=== PATIENT | female | born 1955 | race Caucasian/White ===

== ENCOUNTER 2020-03-30 08:33 | Outpatient (REF) | payer OTHER, SELFPAY ==
[2020-03-30 11:33] LABS: MANUAL DIFF FLAG NO
[2020-03-30 11:39] LABS: Basophils Percent Auto 0.5 % (0-2); Eosinophils Absolute Auto 0.1 X10*3/uL (0.0-0.4); Eosinophils Percent Auto 2.1 % (0-4); Hematocrit 39.7 % (37-47); Hemoglobin 13.4 g/dl (12.0-16.0); Imm Gran Abs Auto 0.01 X10*3/uL (0.00-0.03); Imm Gran Pct Auto 0.2 % (0.0-0.4); Lymphocytes Absolute Auto 0.8 X10*3/uL (1.2-4.9); Lymphocytes Percent Auto 18.9 % (20-40); Mean Corpuscular HGB Conc 33.8 g/dl (31.0-35.0); Mean Corpuscular Hemoglobin 31.7 pg (27.0-33.0); Mean Corpuscular Volume 93.9 fL (80-98); Mean Platelet Volume 10.4 fL (9.4-12.3); Monocytes Absolute Auto 0.3 X10*3/uL (0.1-1.2); Monocytes Percent Auto 7.8 % (2-11); Neutrophils Absolute Auto 3.1 X10*3/uL (2.0-8.3); Neutrophils Percent Auto 70.5 % (45-73); Platelet Count 246 X10*3/uL (160-400); Red Blood Count 4.23 X10*6/uL (4.20-5.50); Red Cell Distribution Width 12.1 % (11.0-16.0); White Blood Count 4.4 X10*3/uL (4.8-10.8)
[2020-03-30 11:59] LABS: Alanine Aminotransferase 17 U/L (0-31); Albumin Level 4.1 g/dL (3.5-5.0); Alkaline Phosphatase 91 U/L (39-117); Anion Gap 11 (12-20); Aspartate Amino Transferase 20 U/L (5-31); Bilirubin Total 0.4 mg/dL (0.0-1.0); Blood Urea Nitrogen 13 mg/dL (9-16); Calcium 9.1 mg/dL (8.4-10.2); Carbon Dioxide 31 mmol/L (22-29); Chloride 105 mmol/L (96-108); Cholesterol 172 mg/dL; Estimated Glomerular Filt Rate > 60; Glucose Fasting 86 mg/dL (60-99); HDL Cholesterol 61 mg/dL; LDL Cholesterol Calculated 98 mg/dl; Potassium 3.9 mmol/l (3.3-5.1); Sodium 143 mmol/L (135-145); Total Protein 6.4 g/dL (6.5-8.0); Triglycerides 68 mg/dL
[2020-03-30 12:21] LABS: TSH reflex Free T4 1.51 mIU/mL (0.32-4.0)
[2020-03-30 12:47] LABS: Glucose Urine UA NEG (NEG); Leukocyte Esterase Urine 1+ (NEG); Nitrite Urine NEG (NEG); PH 7.5 (5.0-8.0); Urine Blood NEG (NEG); Urine Ketones NEG (NEG); Urine Protein NEG (NEG-TRACE)
[2020-03-30 12:56] LABS: Appearance Urine CLEAR; Color Urine YELLOW
[2020-03-30 13:13] LABS: RBC Urine 0 /HPF (0); Squamous Epithelial Cell Urine TRACE /LPF; WBC Urine 0-2 /HPF (0-4)
[2020-03-30 13:14] LABS: Amorphous Sediment Urine 4+ /LPF
== END 2020-03-30 08:34 | disposition home or self-care (01) ==
LOC: HO.HMGCLDS 08:33
PROVIDERS: PCP Internal Medicine; Visit Provider Internal Medicine
DX: Z00.00 Encounter for general adult medical examination without abnormal findings (principal); G50.0 Trigeminal neuralgia; F32.9 Major depressive disorder, single episode, unspecified
CPT/HCPCS: 36415; 80053; 80061; 81001; 81003; 84443; 85025; 87086

== ENCOUNTER 2020-08-05 08:14 | Outpatient (REF) | payer OTHER, SELFPAY ==
--- NOTE | ~2020-08-05 | MM_ITS ---
EXAMINATION: MM SCREENING DIGITAL BREAST TOMOSYNTHESIS, BILATERAL CLINICAL INFORMATION: Screening. Asymptomatic. The lifetime risk of breast cancer based on the Tyrer-Cuzick Model is 5.5%. COMPARISON: Mammography: April 23, 2019 and March 09, 2018 TECHNIQUE: Digital breast tomosynthesis is performed in both the craniocaudal and mediolateral oblique views along with computer-aided detection (CAD). Synthesized 2D images are generated from the tomosynthesis. FINDINGS: There are scattered areas of fibroglandular density (ACR BI-RADS breast composition Category b). There are no significant masses, abnormal calcifications, or other abnormalities. MM/MM tomosynthesis screening BI IMPRESSION: There are no significant changes from prior study. ASSESSMENT: BI-RADS 1: Negative RECOMMENDATION: Routine annual mammography screening. This patient's information was entered into a reminder system with a target due date for their next mammogram.
== END 2020-08-05 08:15 | disposition home or self-care (01) ==
LOC: HO.MAMMO 08:14
PROVIDERS: Visit Provider Internal Medicine
DX: Z12.31 Encounter for screening mammogram for malignant neoplasm of breast (principal)
CPT/HCPCS: 77063; 77067

== ENCOUNTER 2021-08-11 08:16 | Outpatient (REF) | payer OTHER, SELFPAY ==
--- NOTE | ~2021-08-11 | MM_ITS ---
EXAMINATION: MM SCREENING DIGITAL BREAST TOMOSYNTHESIS, BILATERAL CLINICAL INFORMATION: Screening. Asymptomatic. The lifetime risk of breast cancer based on the Tyrer-Cuzick Model is 5%. COMPARISON: Mammography: 08/05/2020, 04/23/2019, 03/09/2018 (new baseline). TECHNIQUE: Digital breast tomosynthesis is performed in both the craniocaudal and mediolateral oblique views along with computer-aided detection (CAD). Synthesized 2D images are generated from the tomosynthesis. FINDINGS: There are scattered areas of fibroglandular density (ACR BI-RADS breast composition Category b). There are no significant masses, abnormal calcifications, or other abnormalities. Parenchymal pattern is similar to prior studies. The axilla are unremarkable. Skin contours are smooth. MM/MM tomosynthesis screening BI IMPRESSION: No mammographic evidence of malignancy. ASSESSMENT: BI-RADS 1: Negative RECOMMENDATION: Routine annual mammography screening. This patient's information was entered into a reminder system with a target due date for their next mammogram.
== END 2021-08-11 08:17 | disposition home or self-care (01) ==
LOC: HO.MAMMO 08:16
PROVIDERS: PCP Internal Medicine; Visit Provider Internal Medicine
DX: Z12.31 Encounter for screening mammogram for malignant neoplasm of breast (principal)
CPT/HCPCS: 77063; 77067

== ENCOUNTER 2021-08-13 07:11 | Outpatient (REF) | payer OTHER, SELFPAY ==
[2021-08-13 07:29] LABS: MANUAL DIFF FLAG NO
[2021-08-13 07:38] LABS: Basophils Percent Auto 0.8 % (0-2); Eosinophils Absolute Auto 0.1 X10*3/uL (0.0-0.4); Eosinophils Percent Auto 1.8 % (0-4); Hematocrit 39.8 % (37.0-47.0); Lymphocytes Absolute Auto 0.9 X10*3/uL (1.2-4.9); Lymphocytes Percent Auto 24.1 % (20-40); Mean Corpuscular HGB Conc 35.2 g/dl (31.0-35.0); Mean Corpuscular Hemoglobin 32.3 pg (27.0-33.0); Mean Corpuscular Volume 91.7 fL (80.0-98.0); Mean Platelet Volume 9.5 fL (9.4-12.3); Monocytes Absolute Auto 0.3 X10*3/uL (0.1-1.2); Monocytes Percent Auto 8.7 % (2-11); Neutrophils Absolute Auto 2.5 x10*3/uL (2.0-8.3); Neutrophils Percent Auto 64.6 % (45-73); Platelet Count 246 X10*3/uL (160-400); Red Blood Count 4.34 X10*6/uL (4.20-5.50); Red Cell Distribution Width 11.9 % (11.0-16.0); White Blood Count 3.8 X10*3/uL (4.8-10.8)
[2021-08-13 07:53] LABS: Troponin-I High Sensitivity < 3.5 ng/L (<3.5-17.0)
[2021-08-13 08:05] LABS: Alanine Aminotransferase 25 U/L (0-31); Albumin Level 4.1 g/dL (3.5-5.0); Alkaline Phosphatase 112 U/L (39-117); Anion Gap 12 (12-20); Aspartate Amino Transferase 22 U/L (5-31); Bilirubin Total 0.3 mg/dL (0.0-1.0); Blood Urea Nitrogen 12 mg/dL (9-16); Calcium 9.7 mg/dL (8.4-10.2); Carbon Dioxide 28 mmol/L (22-29); Chloride 103 mmol/L (96-108); Cholesterol 212 mg/dL; Estimated Glomerular Filt Rate > 60; Glucose Fasting 88 mg/dL (60-99); HDL Cholesterol 75 mg/dL; LDL Cholesterol Calculated 129 mg/dl; Potassium 4.1 mmol/L (3.3-5.1); Sodium 139 mmol/L (135-145); Total Protein 6.6 g/dL (6.5-8.0); Triglycerides 40 mg/dL
[2021-08-13 08:18] LABS: TSH reflex Free T4 1.27 uIU/mL (0.32-4.0); Vitamin D 25-OH Total 45.4 ng/mL (>30)
[2021-08-13 09:12] LABS: Color Urine YELLOW; Glucose Urine UA NEG (NEG); Leukocyte Esterase Urine 3+ (NEG); Nitrite Urine NEG (NEG); Specific Gravity - Urine >= 1.030 (1.005-1.025); UACC Culture Trigger YES; Urine Blood NEG (NEG); Urine Ketones NEG (NEG); Urine Protein NEG (NEG-TRACE)
[2021-08-13 09:14] LABS: Appearance Urine HAZY
[2021-08-13 09:32] LABS: Bacteria Urine TRACE /LPF; Squamous Epithelial Cell Urine 1+ /LPF
[2021-08-19 14:36] LABS: CK-BB None Detected (None Detected); CK-MB 0 % (<5); CK-MM 100 % (95-100); Creatine Kinase,Total,Serum 87 U/L (29-143)
== END 2021-08-13 07:12 | disposition home or self-care (01) ==
LOC: HO.LAB 07:11
PROVIDERS: PCP Internal Medicine; Visit Provider Internal Medicine
DX: Z00.00 Encounter for general adult medical examination without abnormal findings (principal); R07.9 Chest pain, unspecified; E55.9 Vitamin D deficiency, unspecified
CPT/HCPCS: 36415; 80053; 80061; 81001; 82306; 82552; 84443; 84484; 85025; 86140; 87086

== ENCOUNTER 2021-09-22 10:20 | Outpatient (REF) | payer OTHER, SELFPAY ==
--- NOTE | ~2021-09-22 | MM_ITS ---
EXAMINATION: BONE DENSITOMETRY CLINICAL INDICATION: Asymptomatic menopausal state. COMPARISON: Baseline BD dated 03/09/2018. TECHNIQUE: Using a [employer] DXA System (software version: 13.1) manufactured by [employer], dual-energy x-ray absorptiometry was performed of the lumbar spine and left hip. The images are of good technical quality. Summary results are attached. FINDINGS: AP SPINE L1-L4: Current: BMD 1.214 g/cm2, Z-score 1.6, T-score 0.3, normal, 1.0% decrease from baseline (<5% change is not significant). Baseline: BMD 1.226 g/cm2. LEFT FEMUR, NECK: Current: BMD 0.867 g/cm2, Z-score 0.1, T-score -1.2, osteopenia. Baseline: BMD 0.881 g/cm2. LEFT FEMUR, TOTAL: Current: BMD 0.993 g/cm2, Z-score 0.9, T-score -0.1, normal, 3.6% decrease from baseline (<5% change is not significant). Baseline: BMD 1.030 g/cm2. IDENTIFIED RISK FACTORS: Early menopause, secondary osteoporosis, low calcium intake. HISTORY OF FRACTURE: None listed. MEDICATIONS: Calcium supplements or multivitamin, vitamin D. MM/XR DEXA axial skeleton IMPRESSION: 1. DIAGNOSIS: Osteopenia based on the lowest T-score value of -1.2 in the femoral neck applying World Health Organization criteria. 2. 10-YEAR FRACTURE RISK PREDICTION, FRAX: Major osteoporotic fracture (clinical spine, forearm, hip or shoulder) 8.3%. Hip fracture 0.7%. 3. Treatment Recommendations: NOF guidelines recommend consideration for treatment in postmenopausal women and men age 50 and older presenting with the following: -A hip or vertebral (clinical or morphometric) fracture. -T-score less than or equal to -2.5 at the femoral neck or spine after appropriate evaluation to exclude secondary causes. -Low bone mass at the hip or spine and a 10-year fracture probability by FRAX of greater than or equal to 3% for hip fracture or greater than or equal to 20% for major osteoporotic fracture based on the [place] adapted WHO algorithm. 4. Other Recommendations: All treatment decisions require clinical judgment and consideration of individual patient factors, including patient preferences, comorbidities, previous drug use, risk factors not captured in the FRAX model (e.g. frailty, falls, vitamin D deficiency, increased bone turnover, interval significant decline in bone density) and possible under or overestimation of fracture risk by FRAX. Additional medical evaluation for secondary cause of low bone mineral density may be appropriate. FUTURE SCAN RECOMMENDATION: People with diagnosed cases of osteoporosis or at high risk for fracture should have regular bone mineral density tests. For patients eligible for Medicare, routine testing is allowed once every 2 years. The testing frequency can be increased to one year for patients who have rapidly progressing disease, those who are receiving or discontinuing medical therapy to restore bone mass, or have additional risk factors.
== END 2021-09-22 10:21 | disposition home or self-care (01) ==
LOC: HO.MAMMO 10:20
PROVIDERS: PCP Internal Medicine; Visit Provider Internal Medicine
DX: M85.80 Other specified disorders of bone density and structure, unspecified site (principal); E83.51 Hypocalcemia; Z78.0 Asymptomatic menopausal state
CPT/HCPCS: 77080

== ENCOUNTER → 2021-09-23 11:57 | Outpatient (REF) | payer OTHER, SELFPAY ==
--- NOTE | 2021-09-23 10:36 | CA_ITS ---
Acquisition Time: 2021-09-23 10:39:55 Total Exercise Time: 00:10:00 Test Indications: Chest Pain Medications: carbamazipine prigabalin Protocol: GERI Max HR: 144 BPM 92% of Pred: 156 BPM Max BP: 150/060 mmHG Max Work Load: 11.7 METS Exercise stress test with exercise 10 min of Geri protocol, without anginal symptoms, without arrythmia, with normotensive response to exercise, without EKG changes meeting criteria for ischemia. Test reviewed with Dr Chamberlain. Referred By: Hermann Phillips Overread By: DOMENICO GARCIA
== END ==
LOC: HO.CARD 11:57
PROVIDERS: PCP Internal Medicine; Visit Provider Internal Medicine
DX: R07.9 Chest pain, unspecified (principal)
CPT/HCPCS: 93017

== ENCOUNTER 2022-08-22 08:50 | Outpatient (REF) | payer MEDICARE, MEDICAID, OTHER, SELFPAY ==
--- NOTE | ~2022-08-22 | MM_ITS ---
EXAMINATION: MM SCREENING DIGITAL BREAST TOMOSYNTHESIS, BILATERAL CLINICAL INFORMATION: Screening. Asymptomatic. The lifetime risk of breast cancer based on the Tyrer-Cuzick Model is 5%. COMPARISON: Mammography: 08/11/2021, 08/05/2020, 04/23/2019 TECHNIQUE: Digital breast tomosynthesis is performed in both the craniocaudal and mediolateral oblique views along with computer-aided detection (CAD). Synthesized 2D images are generated from the tomosynthesis. FINDINGS: There are scattered areas of fibroglandular density (ACR BI-RADS breast composition Category b). There are no significant masses, abnormal calcifications, or other abnormalities. Parenchymal pattern is similar to prior studies. There is no developing density or architectural abnormality. The axilla and skin contours are unremarkable. No significant changes. MM/MM tomosynthesis screening BI IMPRESSION: No mammographic evidence of malignancy. ASSESSMENT: BI-RADS 1: Negative RECOMMENDATION: Routine annual mammography screening. This patient's information was entered into a reminder system with a target due date for their next mammogram.
== END 2022-08-22 08:51 | disposition home or self-care (01) ==
LOC: HO.MAMMO 08:50
PROVIDERS: PCP Internal Medicine; Visit Provider Internal Medicine
DX: Z12.31 Encounter for screening mammogram for malignant neoplasm of breast (principal)
CPT/HCPCS: 77063; 77067

== ENCOUNTER 2022-08-31 08:03 | Outpatient (REF) | payer MEDICARE, OTHER, SELFPAY ==
--- NOTE | ~2022-08-31 | XR_ITS ---
EXAMINATION: XR KNEE, LEFT CLINICAL INFORMATION: Reason for Exam M25.562 - Pain in left knee COMPARISON: None TECHNIQUE: 4 views of the knee FINDINGS: No acute fracture or dislocation. Mild degenerative changes of the knee with spurring of the tibial spines, small patellofemoral osteophytes and borderline loss of medial compartment joint space. No joint effusion. Soft tissues are unremarkable. XR/XR knee LT 4V IMPRESSION: * No acute osseous abnormality. * Mild degenerative changes of the knee.
--- NOTE | ~2022-08-31 | XR_ITS ---
EXAMINATION: XR HUMERUS, RIGHT CLINICAL INFORMATION: Pain COMPARISON: None available. TECHNIQUE: AP and lateral views of the right humerus. FINDINGS: No acute fracture or dislocation. No elbow effusion. Mild degenerative changes of the shoulder with degenerative spurring of the acromioclavicular and glenohumeral joints. Soft tissues are unremarkable. XR/XR humerus RT IMPRESSION: 1. No acute fracture or dislocation. 2. Mild degenerative changes of the shoulder.
[2022-08-31 10:02] LABS: Carbamazepine Tegretol 8.3 mcg/mL (5.0-12.0)
[2022-08-31 10:20] LABS: Alanine Aminotransferase 16 U/L (0-31); Albumin Level 4.2 g/dL (3.5-5.0); Alkaline Phosphatase 119 U/L (39-117); Anion Gap 11 (12-20); Aspartate Amino Transferase 18 U/L (5-31); Bilirubin Direct 0.1 mg/dL (0.0-0.5); Bilirubin Total 0.5 mg/dL (0.0-1.0); Carbon Dioxide 29 mmol/L (22-29); Chloride 103 mmol/L (96-108); Potassium 4.2 mmol/L (3.3-5.1); Sodium 139 mmol/L (135-145); Total Protein 6.9 g/dL (6.5-8.0)
== END 2022-08-31 08:04 | disposition home or self-care (01) ==
LOC: HO.XRAY 08:03
PROVIDERS: Psychiatry & Neurology Neurology; PCP Internal Medicine; Visit Provider Internal Medicine
DX: G50.0 Trigeminal neuralgia (principal); M79.621 Pain in right upper arm; M25.562 Pain in left knee
CPT/HCPCS: 36415; 73060; 73564; 80051; 80076; 80156

== ENCOUNTER 2022-12-05 12:38 | Outpatient (AMB) | payer OTHER, SELFPAY ==
--- NOTE | 2022-12-05 12:40 | MHC.OFFVIS ---
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 Scribed for Dr. José Rothman by Agustina eNss, rn medical surgical, on 12/05/2022 at 1:10 pm EST. Padilla is a 67 year old right hand dominant female who presents today as a new patient with complaints of right upper arm/shoulder pain. Patient reports that she has had pain in the right bicep for about 2 months now, denies injury. She has pain with reaching and lifting motions. She is taking OTC NSAIDs PRN pain. She complains of bilteral knee pain for about a year now. She denies any previous treatment, she explains that this pain is intermittent. She had trouble moving to sit on the floor. States she is interested in PT. 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 She denies injury. The right shoulder has been keeping her up at night and she describes sub deltoid radiating pain without numbness or tingling. COUNTS INCLUDE 234 BEDS AT THE [facility] Medical History (Updated 12/05/22 @ 15:22 by Agustina Ness) Pain in right knee Hearing impairment Allergic rhinitis Depression Trigeminal neuralgia of left side of face Surgical History History of cranioplasty History of ear surgery History of nasal septoplasty Family History Father No problems noted. Mother No problems noted. 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 Cognitive needs: No Hearing needs: No Vision needs: Yes Physical Exam Const General: cooperative, healthy appearing, no acute distress and well groomed Orientation/consciousness: oriented to person and oriented to place HEENT Head: Yes normal to inspection, Yes normocephalic and Yes atraumatic Eyes General: appearance normal, both eyes and all related structures Alignment and Position: alignment normal Conjunctivae: conjunctivae normal EOM: EOMs intact bilaterally Neck Neck: Yes normal visual inspection and Yes trachea midline Resp Other: No rerpiratory distress Effort & Inspection: normal respiratory effort and able to speak in complete sentences Cardio Other: Palpable radial pulse with no appreciable rythmic abnormalities GI Other: No abdominal distension Back/Spine/Pelvis Cervical Spine: normal cervical lordosis and cervical ROM normal Skin General skin exam: no rashes or lesions noted Neuro General: oriented to person, oriented to place and gait normal Extrem Other: Shoulder: Visual inspection: ROM: FUll Hawkin's: + Neer: + Empty can: neg Lag:neg Lift off: neg GH stability:n/a Apprehension/Relocation:n/a Sulcus: n/a Bilateral knee with mild retropatellr ttp and mild medial joitn lien pain bialterally FUll ROM Results Reviewed Results Reviewed: I personally reviewed relevant radiographs. Shoulder: No acute fracture or dislocation. No elbow effusion. Mild degenerative changes of the shoulder with degenerative spurring of the acromioclavicular and glenohumeral joints. Soft tissues are unremarkable. RIght knee: Mild djd. Assessment & Plan Assessment & Plan (1) Pain in right knee: Code(s): M25.561 - Pain in right knee Plan: Knee pain with mild OA. Discussed exercises for strengthening (2) Left knee pain: Code(s): M25.562 - Pain in left knee Qualifiers: Chronicity: unspecified Qualified Code(s): M25.562 - Pain in left knee Plan: Knee pain with mild OA. Discussed exercises for strengthening (3) Pain in right upper arm: Code(s): M79.621 - Pain in right upper arm Plan: Impingement-type syndrome although low in deltoid. PT rx written. Will follow up if pain does not improve. Plan Refferal for PT. Orders: Orders PT Evaluation and Treatment 12/05/22 M75.41 - Impingement syndrome of right shoulder, M25.561 - Pain in right knee, M25.562 - Pain in left knee Coding Level of Care Code New Pt Level 4 (97772) Diagnoses Pain in right knee M25.561 Left knee pain, unspecified chronicity M25.562 Chronicity: unspecified Pain in right upper arm M79.624
== END 2022-12-05 13:32 | disposition home or self-care (01) ==
PROVIDERS: PCP Internal Medicine; Visit Provider Orthopaedic Surgery
DX: M25.561 Pain in right knee (principal); M25.562 Pain in left knee; M79.621 Pain in right upper arm
CPT/HCPCS: 99203

== ENCOUNTER → 2022-12-05 12:38 | Outpatient (BNVA) | payer SELFPAY | PROVIDERS: PCP Internal Medicine; Visit Provider Orthopaedic Surgery ==

== ENCOUNTER 2023-02-15 09:00 | Outpatient (RCR) | payer OTHER, SELFPAY ==
--- NOTE | 2022-12-09 15:03 | MHC.PT.EP ---
[facility] [place] Office [place] Office [place] Office [address] [phone] F: [phone] F: [phone] F: [phone] F: [phone] Physical Therapy Plan of Care Date of Evaluation: 12/09/22 Date of Surgery: Diagnosis: impingement syndrome R shoulder Assessment: 67 y/o LHD female referred to PT with R shoulder impingement. S/s consistent with impingement (?small RTC tear) resulting in pain and difficulty with reaching (especially if supinated), using elbow, grooming, R sidelying, and lifting grandchild secondary to decreased R shoulder AROM, normal PROM, decreased R shoulder strength, normal capsular mobility, pain, and noted shrug sign with abduction and flexion. Recommend PT 2x/week for 5 weeks to address impairments, implement HEP and optimize functional mobility. States she can only come 1x/week Frequency and Duration: The patient will be seen 1x/week for 6 weeks Short Term Goals: 3 weeks Compliant with HEP Pt will demonstrate R shoulder flexion AROM to 120 without shrug Skilled Nursing Goals: 6 weeks I with HEP and self management of sx Demonstrate no shrug with FE and pain < 3/10 Pt will be able to lift her 1 y/o grandchild with pain < 3/10 Treatment Plan: Modalities to reduce pain, spasms and effusion. Manual therapy to restore motion and function. Therapeutic exercise to improve strength and flexibility. Neuromuscular re-education for posture and balance. Therapeutic activities to return to functional activities of daily living. Electronically signed by: Michelle Bates PT Please sign and return to therapist. Thank you for your referral.
--- NOTE | 2023-02-27 13:14 | MHC.PT.DC ---
[facility] [place] Office [place] [facility] [place] [facility] [address] Yudith Zuniga [address] [phone] F: [phone] F: [phone] F: [phone] F: [phone] Physical Therapy Discharge Report Diagnosis: impingement syndrome R shoulder Date of Surgery: Date of Evaluation: 12/09/22 Date of Discharge: 02/15/23 Treatments to Date: 6 Cancellations to Date: 0 No Shows to Date: 1 Discharge Status: Achieved Goals Improved Function Independent with HEP Discharge Summary: Pt reports less pain overall and is I with HEP. At this time, appropriate for d/c secondary to meeting goals, SPADI 13/130, and I with HEP. Electronically signed by: Michelle Bates PT Please sign and return to therapist. Thank you for your referral.
== END 2023-02-27 13:15 | disposition home or self-care (01) ==
LOC: HO.PTCHIC 09:00
PROVIDERS: PCP Internal Medicine; Visit Provider Orthopaedic Surgery
DX: M75.41 Impingement syndrome of right shoulder (principal); M25.561 Pain in right knee; M25.562 Pain in left knee
CPT/HCPCS: 97110; 97140; 97161

== ENCOUNTER 2023-10-21 09:06 | Outpatient (AMB) | payer OTHER, SELFPAY ==
[2023-10-21 09:12] VITALS: BP 112/60; PULSE 48; TEMP 36.7; O2SAT 95; BMI 24.7
--- NOTE | 2023-10-21 09:12 | MHC.OFFWIV ---
Intake Vital Signs 10/21/23 09:12 Height 5 ft 6 in Weight 153 lb BMI 24.7 BP 112/60 Blood Pressure Location Lt brachial Position Sitting Pulse 48 L Pulse Source Pulse Oximeter Temp 98.0 F Temp Source Oral Pulse Oximetry (%) 95 Oxygen Delivery Method Room Air Intake Visit Reasons: EP plantar fasciitis affecting RT knee Intake Note: Pt is here today c/o Rt knee pain Patient Tobacco Use Status: Never used Tobacco Allergies cephalexine Adverse Reaction (Intermediate, Uncoded 10/21/23 09:21) eye swelling HPI EP plantar fasciitis affecting RT knee HPI Details Patient is a 68-year-old female comes to the walk-in clinic complaining of pain do the right knee which she relates to a current plantar fasciitis flare, which has been ongoing for about a month and a half now. She reports symptoms improving in the past with wearing inserts and supportive shoes, however symptoms now persist. She reports no acute trauma, and no systemic symptoms reported. No weakness numbness or tingling reported. [facility] Medical History Pain in right knee Hearing impairment Allergic rhinitis Depression Trigeminal neuralgia of left side of face Surgical History History of cranioplasty History of ear surgery History of nasal septoplasty Family History Father No problems noted. Mother No problems noted. 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 She also has tenderness with palpation to the right anterior knee, adjacent to the lateral side of the patella. No joint tenderness, and no laxity of the joint. Neurovascularly intact distally. Mildly antalgic gait Results Reviewed Results Reviewed: mild arthritis, osteopenia, calcaneal spur, no fx Assessment & Plan Assessment & Plan (1) Plantar fasciitis of right foot: Code(s): M72.2 - Plantar fascial fibromatosis Plan: Patient is a 68-year-old female with apparent plantar fasciitis of the right foot. She is altering her gait due to pain and is now starting to experience pain that radiates up into the right knee. She is already wearing very supportive shoes with inserts, and is questioning what the next step should be for this. Plain film x-ray today shows degenerative joint disease, a calcaneal spur, and per radiologist read, osteopenia. We discussed doing stretches and I wrote her for a course of naproxen to help with the inflammation. She already knows to ice and elevate the foot as able. She might benefit from a course of physical therapy, which she will likely need her PCP to approve, and she sees Dr. Phillips who is affiliated with [facility]. If she decides to go through Orthopedics instead, she might be considered as a candidate for a walking boot to help splint her. I told her that I would put through a referral for her in case she decides this is the option she desires. Orders: Orders XR foot RT min 3V 10/21/23 M72.2 - Plantar fascial fibromatosis Referrals Orthopedics Referral M72.2 - Plantar fascial fibromatosis Medications: New naproxen 500 mg PO BID 14 days PRN 28 tabs 0RF pain Coding Level of Care Code Est Pt Level 4 (93068) Diagnoses Plantar fasciitis of right foot M72.2
== END 2023-10-21 10:37 | disposition home or self-care (01) ==
PROVIDERS: PCP Internal Medicine; Visit Provider Physician Assistant Medical
DX: M72.2 Plantar fascial fibromatosis (principal)
CPT/HCPCS: 99214

== ENCOUNTER 2023-10-21 09:38 | Outpatient (REF) | payer OTHER, SELFPAY ==
--- NOTE | ~2023-10-21 | XR_ITS ---
EXAMINATION: CR RIGHT FOOT. CR RIGHT KNEE. CLINICAL INFORMATION: Weakness and pain to the lateral aspect of the knee. No acute trauma. Pain to the plantar aspect of the foot. Plantar fascial fibromatosis. COMPARISON: Contralateral left knee films dated 08/31/2022. TECHNIQUE: 3 views of the right foot. 4 views of the right knee. FINDINGS: Right foot: No acute fracture or dislocation. No radiopaque foreign body in the soft tissues. Small plantar calcaneal spur. Prominent accessory ossicles seen adjacent to the calcaneocuboid joint. No significant ankle joint effusion. Minimal osteoarthritic changes in the interphalangeal joints of all digits with minimal joint space narrowing seen. Right knee: No acute fracture or dislocation. Mild joint space narrowing and minimal spurring in the patellofemoral and medial femoral compartments. Mild spurring in the lateral femoral compartment with preservation of joint space height. No significant knee joint effusion or prepatellar soft tissue swelling. No joint calcifications. Osteopenia. XR/XR knee RT 4V IMPRESSION: 1. No acute fracture of the right foot or right knee. 2. Small plantar calcaneal spur. 3. Mild osteoarthritic changes in the right knee and right toes. 4. Osteopenia.
--- NOTE | ~2023-10-21 | XR_ITS ---
EXAMINATION: CR RIGHT FOOT. CR RIGHT KNEE. CLINICAL INFORMATION: Weakness and pain to the lateral aspect of the knee. No acute trauma. Pain to the plantar aspect of the foot. Plantar fascial fibromatosis. COMPARISON: Contralateral left knee films dated 08/31/2022. TECHNIQUE: 3 views of the right foot. 4 views of the right knee. FINDINGS: Right foot: No acute fracture or dislocation. No radiopaque foreign body in the soft tissues. Small plantar calcaneal spur. Prominent accessory ossicles seen adjacent to the calcaneocuboid joint. No significant ankle joint effusion. Minimal osteoarthritic changes in the interphalangeal joints of all digits with minimal joint space narrowing seen. Right knee: No acute fracture or dislocation. Mild joint space narrowing and minimal spurring in the patellofemoral and medial femoral compartments. Mild spurring in the lateral femoral compartment with preservation of joint space height. No significant knee joint effusion or prepatellar soft tissue swelling. No joint calcifications. Osteopenia. XR/XR foot RT min 3V IMPRESSION: 1. No acute fracture of the right foot or right knee. 2. Small plantar calcaneal spur. 3. Mild osteoarthritic changes in the right knee and right toes. 4. Osteopenia.
== END 2023-10-21 09:39 | disposition home or self-care (01) ==
LOC: HO.HMGCX 09:38
PROVIDERS: PCP Internal Medicine; Visit Provider Physician Assistant Medical
DX: M72.2 Plantar fascial fibromatosis (principal); M25.561 Pain in right knee
CPT/HCPCS: 73564; 73630

== ENCOUNTER 2023-11-16 11:02 | Outpatient (AMB) | payer OTHER, SELFPAY ==
[2023-11-16 11:11] VITALS: BP 120/76; PULSE 48; O2SAT 97; BMI 25.1
--- NOTE | 2023-11-16 11:11 | A.OFFPC_ITS ---
Vital Signs 11/16/23 11:11 Height 5 ft 6 in Weight 155 lb 4 oz BMI 25.1 BP 120/76 Blood Pressure Location Lt brachial Position Sitting Pulse 48 L Pulse Source Pulse Oximeter Pulse Oximetry (%) 97 Oxygen Delivery Method Room Air Intake Visit Reasons: Neuro referral Mental Health Consultant Required: No Accompanied by: Self / Same As Patient Allergies cephalexine Adverse Reaction (Intermediate, Uncoded 11/16/23 13:54) eye swelling Medication List - Last Reconciled 11/16/23 by Hermann Phillips MD carbamazepine ER 400 mg PO BID 90 days Grab bar As directed naproxen 500 mg PO BID PRN 14 days pregabalin 150 mg PO BID Tobacco use date assessed: 11/16/23 Fall risk assessment: No Falls in past year Last assessed Fall Risk: 11/16/23 Dental Screening Dental Screen Date: 11/16/23 Did you have a dental visit in the last 12 months?: No Did you have a dental problem in the last 6 months where you did not have access to dental care?: No Was dental information given to patient?: No HPI Neuro referral HPI Details Patient comes in today for follow up / further evaluation of her right knee pain, which she states has been bothering her since she fell on her right knee last weekend on 11/11/2023 States that she reached out to the on-call provider at the time to request for MRI of the knee and was advised that she should try physical therapy first as insurance will not approve an MRI outright without a trial of PT She is presently still waiting for physical therapy to contact her to schedule her appointment States that her right knee still bothers her (hurts) at times, especially with prolonged walking or standing, but she has been wearing a knee sleeve, which she states helps somewhat Adds that she has been seeing Dr. Ott for her left trigeminal neuralgia for years (has one more appointment with him in December 2023) but was informed a few months ago that Dr. Ott will be retiring from active practice soon and is wondering who she should see for neurology follow up once Dr. Ott retires States that her trigeminal neuralgia has so far been adequately controlled on her current medications - is on Carbamazepine ER 400 mg BID and Pregabalin 150 mg BID She denies any headaches or dizziness Denies any chest pains, no SOB No nausea/vomiting, no abdominal pain No change in bowel habits noted Would like to get a refill on her Naproxen Rx PFSH Medical History Pain in right knee Hearing impairment Allergic rhinitis Depression Trigeminal neuralgia of left side of face Surgical History History of cranioplasty History of ear surgery History of nasal septoplasty Family History Father No problems noted. Mother No problems noted. 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 1. Little interest or pleasure in doing things: not at all 2. Feeling down, depressed, or hopeless: not at all 3. Trouble falling or staying asleep, or sleeping too much: not at all 4. Feeling tired or having little energy: not at all 5. Poor appetite or overeating: not at all 6. Feeling bad about yourself - or that you are a failure or have let yourself or your family down: not at all 7. Trouble concentrating on things, such as reading the newspaper or watching television: not at all 8. Moving or speaking so slowly that other people could have noticed. Or the opposite - being so fidgety or restless that you have been moving around a lot more than usual: not at all 9. Thoughts that you would be better off or of hurting yourself in some way: not at all Total score: 0 Depression Screening Interpretation: Negative Depression Screening Done: Yes 83231 - PHQ-9 Billing: Yes Source: Developed by Drs. Favio Sawyer, Jesi Chauhan, Juan Jose Vega and colleagues, with an educational naveen from [employer]. Thrive Questionnaire Date Thrive assessed: 11/16/23 I am a: Patient What is your living situation today?: I have a steady place to live Within the past 12 months, did the food you bought not last and you didn't have the money to get more?: Never true Within the past 12 months, did you worry whether your food would run out before you got money to buy more?: Never true Do you have trouble paying for medicines?: No Do you have trouble getting transportation to medical appointments?: No Do you have trouble paying your heating and electricity bill?: No Do you have trouble taking care of your child, family member or friend?: No Do you have trouble with day-to-day activities such as bathing, preparing meals, shopping, managing finances, etc.?: No Are you currently unemployed and looking for a job?: No Are you interested in more education?: No Please select the resources that you would like help with: None Currently or been in a relationship where the following occur: No concerns reported THRIVE Score: 0 AUDIT C Alcohol Use Questionnaire (AUDIT-C) 1. How often do you have a drink containing alcohol?: Never 3. How often do you have six or more drinks on one occasion?: Never Total Score: 0 Score Reviewed/Action Taken: Yes BRITTANY-7 AMB Questionnaire BRITTANY-7 Date BRITTANY - 7 assessed: 11/16/23 Feeling nervous, anxious, or on edge: 0 = Not at all Not being able to stop or control worryin = Not at all Worrying too much about different things: 0 = Not at all Trouble relaxin = Not at all Being so restless that it is hard to sit still: 0 = Not at all Becoming easily annoyed or irritable: 0 = Not at all Feeling afraid as if something awful might happen: 0 = Not at all Total BRITTANY-7 score (0-4 normal; 5-9 mild; 10-14 moderate; 15-21 severe): 0 Source: Developed by Drs. Favio Sawyer, Jesi Chauhan, Juan Jose Vega and colleagues, with an educational naveen from [employer]. Review of Systems Const Denies fatigue, Denies fever(s) and Denies headache(s) ENT Denies dysphagia, Denies dizziness, Denies otalgia, Denies headache(s), Denies neck pain, Denies odynophagia and Denies sore throat Card Denies chest pain, Denies palpitations and Denies dyspnea Resp Denies cough, Denies dyspnea and Denies wheezing GI Denies abdominal pain, Denies constipation, Denies dysphagia, Denies heartburn, Denies diarrhea, Denies nausea, Denies odynophagia and Denies vomiting Musc Denies back pain, Reports arthralgias (right knee), Denies joint swelling and Denies neck pain Skin/Breast Denies rash Neuro Denies dizziness and Denies headache(s) Psych Denies anxiety Endo Denies fatigue and Denies palpitations Aller/Immun Denies wheezing Physical exam (Primary Care) Vital Signs: Last Vital Signs Pulse 48 L 11/16/23 11:11 BP 120/76 11/16/23 11:11 Pulse Ox 97 11/16/23 11:11 Oxygen Delivery Method Room Air 11/16/23 11:11 BMI result Body Mass Index 25.1 Tobacco/Smoking Status: Tobacco use Status Tobacco use date assessed 11/16/23 11/16/23 11:16 Patient Tobacco Use Status Never used Tobacco 11/16/23 11:16 e-Cigarette/Vaping Use Never Used 11/16/23 11:16 PHQ-9: PHQ-9 Score PHQ-9: Total score 0 11/16/23 11:16 Depression Screening Interpretation: Negative Thrive Assessment: Date of Thrive Assessment Date Thrive assessed 11/16/23 11/16/23 11:16 Currently or been in a relationship where the following occur: No concerns reported Const General: no acute distress and alert HENMT Mouth: No abnormal TMJ Throat: Yes posterior oropharynx normal and Yes tonsils normal Neck Neck: Yes no lymphadenopathy and Yes supple Resp Auscultation: clear to auscultation bilaterally, no rales and no wheezes Cardio Rate: regular rate Rhythm: regular rhythm Heart sounds: no murmurs GI Palpation (GI): Soft to palpation and nontender Auscultation: normal bowel sounds General: Yes no CVA tenderness Back/Spine/Pelvis Back: no CVA tenderness Thoracic/Lumbar Spine: No lumbar spinal tenderness Skin Rashes: no rashes Extrem General: Yes no clubbing, cyanosis or edema Right lower extremity: knee Details: tenderness (mild) Location: of the medial joint line and of the lateral joint line; no swelling Assessment and Plan Assessment & Plan (1) Trigeminal neuralgia of left side of face: Comment: S/P left Jannetta procedure CN V with methylmethacrylate cranioplasty (Dr. Alisa Pro) on 07/22/2019 Code(s): G50.0 - Trigeminal neuralgia Plan: S/P Jannetta procedure in 2019 Was offered a trial of glycerol rhizotomy injection by Dr. Pro a couple of years ago, which patient declined States that she has been doing well on Pregabalin 150 mg BID and Carbamazepine ER 400 mg BID Follow up with neurology (Dr. Ott) as scheduled - used to see Dr. Booker until he retired a couple of years ago States that she is now concerned as to who she should see next once Dr. Ott retires soon Have advised her that we can then refer her to Dr. Gastelum or Dr. Lundy for continuing neurology follow up (2) Dyslipidemia: Code(s): E78.5 - Hyperlipidemia, unspecified Plan: Reinforced low cholesterol diet - advised that her last lab results in July 2021 revealed a borderline high LDL cholesterol and elevated total cholesterol levels Patient was advised that she should try getting her fasting lipids rechecked [facility] for follow up (3) Allergic rhinitis: Code(s): J30.9 - Allergic rhinitis, unspecified Qualifiers: Allergic rhinitis trigger: unspecified Allergic rhinitis seasonality: unspecified Qualified Code(s): J30.9 - Allergic rhinitis, unspecified Plan: Continue OTC Loratadine or uses OTC Fluticasone nasal spray QD PRN (4) Pain in right knee: Code(s): M25.561 - Pain in right knee Qualifiers: Chronicity: unspecified Qualified Code(s): M25.561 - Pain in right knee Plan: Right knee x-rays done earlier this year revealed no acute fracture and with mild osteoarthritic changes in the right knee She has been referred to and is currently awaiting scheduling for PT of her right knee (5) Osteopenia: Code(s): M85.80 - Other specified disorders of bone density and structure, unspecified site Qualifiers: Osteopenia location: unspecified Qualified Code(s): M85.80 - Other specified disorders of bone density and structure, unspecified site Plan: Repeat BMD done in September 2021 revealed (+) osteopenia based on the lowest T-score value of -1.2 in the femoral neck - results are mostly unchanged from her previous BMD scan Patient is again encouraged to continue to stay active and exercise regularly and to continue taking her daily Calcium and Vitamin D supplements (6) Depression: Code(s): F32.9 - Major depressive disorder, single episode, unspecified Qualifiers: Depression Type: unspecified Qualified Code(s): F32.9 - Major depressive disorder, single episode, unspecified Plan: Resolved/controlled - used to take Citalopram but stopped it (on her own) last year States that she has been doing well since and does not have any problems/issues with depression currently Plan To return as scheduled in January 2024 for her annual physical examination Orders: Orders Complete Blood Count Auto Diff 02/02/24 D64.9 - Anemia, unspecified TSH reflex Free T4 02/02/24 E78.00 - Pure hypercholesterolemia, unspecified Carbamazepine Tegretol 02/02/24 G50.0 - Trigeminal neuralgia Lipid Panel 02/02/24 E78.00 - Pure hypercholesterolemia, unspecified Comprehensive [place]. Panel Fast 02/02/24 E78.00 - Pure hypercholesterolemia, unspecified UA CC w/rflx Micro + Cult 02/02/24 R30.0 - Dysuria Vitamin D 25-OH Total 02/02/24 E55.9 - Vitamin D deficiency, unspecified Medications: Changed From naproxen 500 mg PO BID 14 days PRN 28 tabs 0RF pain To naproxen Take with food ONLY as needed for pain 500 mg PO BID 14 days PRN 28 tabs 0RF pain Coding Level of Care Code Est Pt Level 4 (70395) Diagnoses Trigeminal neuralgia of left side of face G50.0 Dyslipidemia E78.5 Allergic rhinitis, unspecified seasonality, unspecified trigger J30.9 Allergic rhinitis trigger: unspecified Allergic rhinitis seasonality: unspecified Right knee pain, unspecified chronicity M25.561 Chronicity: unspecified Osteopenia, unspecified location M85.80 Osteopenia location: unspecified Depression, unspecified depression type F32.9 Depression Type: unspecified
== END 2023-11-16 14:02 | disposition home or self-care (01) ==
PROVIDERS: PCP Internal Medicine; Visit Provider Internal Medicine
DX: G50.0 Trigeminal neuralgia (principal); E78.5 Hyperlipidemia, unspecified; J30.9 Allergic rhinitis, unspecified; M25.561 Pain in right knee; M85.80 Other specified disorders of bone density and structure, unspecified site; F32.9 Major depressive disorder, single episode, unspecified
CPT/HCPCS: 99214

== ENCOUNTER 2024-02-02 16:10 | Outpatient (AMB) | payer OTHER, SELFPAY ==
[2024-02-02 16:27] VITALS: BP 122/60; PULSE 50; O2SAT 96; BMI 25.0
--- NOTE | 2024-02-02 16:27 | A.OFFPC_ITS ---
Vital Signs 02/02/24 16:27 Height 5 ft 6 in Weight 155 lb BMI 25.0 BP 122/60 Blood Pressure Location Lt brachial Position Sitting Pulse 50 Pulse Source Pulse Oximeter Pulse Oximetry (%) 96 Oxygen Delivery Method Room Air Intake Visit Reasons: Annual PE Hygiene Assistant Required: No Accompanied by: Self / Same As Patient Allergies cephalexine Adverse Reaction (Intermediate, Uncoded 02/02/24 17:30) eye swelling Medication List - Last Reconciled 02/02/24 by Hermann Phillips MD carbamazepine ER 400 mg PO BID 90 days Grab bar As directed naproxen 500 mg PO BID PRN 14 days pregabalin 150 mg PO BID 30 days Tobacco use date assessed: 02/02/24 Fall risk assessment: 1 Fall in past year Last assessed Fall Risk: 02/02/24 Dental Screening Dental Screen Date: 02/02/24 Did you have a dental visit in the last 12 months?: Yes Did you have a dental problem in the last 6 months where you did not have access to dental care?: No Was dental information given to patient?: Patient has dentist HPI Annual PE HPI Details Patient comes in today for her annual physical examination States that she has been experiencing recurrent sharp pains over the left side of her face recently and she is concerned that her trigeminal neuralgia may be starting to flare up again States that she ran out of her Pregabalin recently and requested for us to refill her medication as her neurologist, Dr. Ott, retired a few months ago - states that her neurologist used to be the one prescribing her Pregabalin before States that she has not heard back from us or her pharmacy at regarding this refill and is getting worried that running out of her medicine may cause her to get a flare up of her left trigeminal neuralgia She also recently requested for a referral to Dr. Gastelum here at [facility] for a neurology appointment and is still waiting to hear back regarding this States that she feels okay otherwise She denies any increased headaches or dizziness lately Denies any chest pains, no shortness a breath No nausea/vomiting, no abdominal pain No change in bowel habits noted She denies any acute urinary symptoms She has not had any mammogram done since August 2022 She also has not had annual gynecology exam and Pap smear done in several years now Thinks that she last had her screening colonoscopy over 10 years ago so she is due for repeat She is also due for repeat bone density - her last BMD in 2021 did show early osteopenia, with a T-score of -2.1 [facility] Medical History Pain in right knee Hearing impairment Allergic rhinitis Depression Trigeminal neuralgia of left side of face Surgical History History of cranioplasty History of ear surgery History of nasal septoplasty Family History Father No problems noted. Mother No problems noted. 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 1. Little interest or pleasure in doing things: not at all 2. Feeling down, depressed, or hopeless: not at all 3. Trouble falling or staying asleep, or sleeping too much: not at all 4. Feeling tired or having little energy: not at all 5. Poor appetite or overeating: not at all 6. Feeling bad about yourself - or that you are a failure or have let yourself or your family down: not at all 7. Trouble concentrating on things, such as reading the newspaper or watching television: not at all 8. Moving or speaking so slowly that other people could have noticed. Or the opposite - being so fidgety or restless that you have been moving around a lot more than usual: not at all 9. Thoughts that you would be better off or of hurting yourself in some w ay: not at all Total score: 0 Depression Screening Interpretation: Negative Depression Screening Done: Yes 68823 - PHQ-9 Billing: Yes Source: Developed by Drs. Favio Sawyer, Jesi Chauhan, Juan Jose Vega and colleagues, with an educational naveen from [employer]. Thrive Questionnaire Date Thrive assessed: 02/02/24 I am a: Patient What is your living situation today?: I have a steady place to live Within the past 12 months, did the food you bought not last and you didn't have the money to get more?: Never true Within the past 12 months, did you worry whether your food would run out before you got money to buy more?: Never true Do you have trouble paying for medicines?: No Do you have trouble getting transportation to medical appointments?: No Do you have trouble paying your heating and electricity bill?: No Do you have trouble taking care of your child, family member or friend?: No Do you have trouble with day-to-day activities such as bathing, preparing meals, shopping, managing finances, etc.?: No Are you currently unemployed and looking for a job?: No Are you interested in more education?: I choose not to answer this question Please select the resources that you would like help with: None Currently or been in a relationship where the following occur: No concerns reported THRIVE Score: 0 AUDIT C Alcohol Use Questionnaire (AUDIT-C) 1. How often do you have a drink containing alcohol?: Never 3. How often do you have six or more drinks on one occasion?: Never Total Score: 0 Score Reviewed/Action Taken: Yes BRITTANY-7 AMB Questionnaire BRITTANY-7 Date BRITTANY - 7 assessed: 02/02/24 Feeling nervous, anxious, or on edge: 0 = Not at all Not being able to stop or control worryin = Not at all Worrying too much about different things: 0 = Not at all Trouble relaxin = Not at all Being so restless that it is hard to sit still: 0 = Not at all Becoming easily annoyed or irritable: 0 = Not at all Feeling afraid as if something awful might happen: 0 = Not at all Total BRITTANY-7 score (0-4 normal; 5-9 mild; 10-14 moderate; 15-21 severe): 0 Source: Developed by Drs. Favio Sawyer, Jesi Chauhan, Juan Jose Vega and colleagues, with an educational naveen from [employer]. Review of Systems Const Denies chills, Denies fatigue, Denies fever(s), Denies headache(s) and Denies malaise Eyes Denies blurry vision, Denies change in vision, Denies irritation and Denies itchy eyes ENT Denies dysphagia, Denies dizziness, Denies otalgia, Denies headache(s), Denies nasal congestion, Denies neck pain, Denies odynophagia, Denies sinus pain and Denies sore throat Card Denies chest pain, Denies rapid heart rate, Denies irregular heart rhythm, Denies palpitations and Denies dyspnea Resp Denies chest congestion, Denies cough, Denies dyspnea and Denies wheezing GI Denies abdominal pain, Denies bloating, Denies constipation, Denies dysphagia, Denies heartburn, Denies diarrhea, Denies nausea, Denies odynophagia and Denies vomiting Denies hematuria, Denies urinary frequency, Denies dysuria, Denies urinary incontinence and Denies urinary urgency Musc Denies back pain, Denies arthralgias, Denies joint swelling, Denies muscle weakness and Denies neck pain Skin/Breast Denies breast pain, Denies breast mass, Denies change in pigmentation, Denies lesions, Denies rash and Denies unusual bruising Neuro Details: (+) on and off sharp pains over the left side of her face Denies dizziness, Denies headache(s) and Denies paresthesias Psych Denies anxiety and Denies depression Endo Denies fatigue and Denies palpitations Alo/Lymph Denies easy bruising Aller/Immun Denies itchy eyes and Denies wheezing Physical exam (Primary Care) Vital Signs: Last Vital Signs Pulse 50 02/02/24 16:27 BP 122/60 02/02/24 16:27 Pulse Ox 96 02/02/24 16:27 Oxygen Delivery Method Room Air 02/02/24 16:27 BMI result Body Mass Index 25.0 Tobacco/Smoking Status: Tobacco use Status Tobacco use date assessed 02/02/24 02/02/24 16:28 Patient Tobacco Use Status Never used Tobacco 02/02/24 16:28 e-Cigarette/Vaping Use Never Used 02/02/24 16:28 PHQ-9: PHQ-9 Score PHQ-9: Total score 0 02/02/24 17:38 Depression Screening Interpretation: Negative Thrive Assessment: Date of Thrive Assessment Date Thrive assessed 11/15/24 11/15/24 16:28 Currently or been in a relationship where the following occur: No concerns reported Const General: no acute distress, alert and awake Orientation/consciousness: patient oriented x3 HENMT Head: Yes normocephalic and Yes atraumatic Ears: external ears normal, TM's normal bilaterally and EAC's normal General nose exam: No nasal discharge present Face and sinus: Yes normal facial exam and Yes sinuses nontender Teeth and gingiva: dentition normal Throat: Yes posterior oropharynx normal and Yes tonsils normal (no TP congestion) Eyes Eyelids: Yes eyelids normal Conjunctivae: conjunctivae normal Pupils: Equal, round and reactive pupils present EOM: EOMs intact bilaterally Neck Neck: Yes no lymphadenopathy and Yes supple Thyroid: Thyroid normal Resp Auscultation: clear to auscultation bilaterally, no rales and no wheezes Cardio Rate: regular rate Rhythm: regular rhythm Heart sounds: no murmurs GI Palpation (GI): Soft to palpation, nontender and No hepatosplenomegaly present Auscultation: normal bowel sounds General: Yes no CVA tenderness Back/Spine/Pelvis Back: no CVA tenderness Thoracic/Lumbar Spine: thoracic and lumbar spine normal to inspection Skin Lesions: no lesions Rashes: no rashes Neuro General: patient oriented x3, moves all extremities, no focal motor deficits and CN's II-XI intact bilaterally Cranial nerves: Yes Equal, round and reactive pupils present Cognition (Neuro): normal cognition Gait exam (Neuro): Normal gait present Extrem General: Yes no clubbing, cyanosis or edema Coding Level of Care Code Est Pt Prev Care >65y(55896) Diagnoses Annual physical exam Z00.00 Trigeminal neuralgia of left side of face G50.0 Dyslipidemia E78.5 Allergic rhinitis, unspecified seasonality, unspecified trigger J30.9 Allergic rhinitis trigger: unspecified Allergic rhinitis seasonality: unspecified Primary osteoarthritis of right knee M17.11 Osteoarthritis type: primary Osteopenia, unspecified location M85.80 Osteopenia location: unspecified Depression, unspecified depression type F32.9 Depression Type: unspecified Cervical cancer screening Z12.4 Colon cancer screening Z12.11 Encounter for screening mammogram for malignant neoplasm of breast Z12.31 Breast cancer screening modality: mammogram Additional Codes PHQ-9 - 39298 - PHQ-9 Billing: Yes ([id number]) Assessment & Plan Assessment & Plan (1) Annual physical exam: Code(s): Z00.00 - Encounter for general adult medical examination without abnormal findings Category: Medical Plan: Check labs - have advised patient that her labs were already previously ordered and she just has to go and get them done [facility] She is currently due for her repeat bone density screening as well as her annual gynecology exam and Pap smear and screening colonoscopy She is also due for her annual mammography (2) Trigeminal neuralgia of left side of face: Comment: S/P left Jannetta procedure CN V with methylmethacrylate cranioplasty (Dr. Alisa Pro) on 07/22/2019 Code(s): G50.0 - Trigeminal neuralgia Category: Medical Plan: S/P Jannetta procedure in 2019 She was offered a trial of glycerol rhizotomy injection by Dr. Pro a few years ago, which patient declined States that she has been doing well on Pregabalin 150 mg BID and Carbamazepine ER 400 mg BID She was following up with Dr. Ott up until he retired a few months ago (used to see Dr. Booker until he retired a couple of years ago) She has been referred to Dr. Gastelum for neurology follow up and we are currently just waiting for Dr. Gastelum's office to reach out to her to schedule her appointment (3) Dyslipidemia: Code(s): E78.5 - Hyperlipidemia, unspecified Category: Medical Plan: Reinforced low cholesterol diet - advised that her last lab results in July 2021 revealed a borderline high LDL cholesterol and elevated total cholesterol levels Patient was advised that she should try getting her fasting lipids rechecked [facility] for follow up (4) Allergic rhinitis: Code(s): J30.9 - Allergic rhinitis, unspecified Category: Medical Qualifiers: Allergic rhinitis trigger: unspecified Allergic rhinitis seasonality: unspecified Qualified Code(s): J30.9 - Allergic rhinitis, unspecified Plan: Continue OTC Loratadine 10 mg QD PRN and/or OTC Fluticasone 50 mcg nasal spray QD PRN (5) Osteoarthritis of right knee: Code(s): M17.11 - Unilateral primary osteoarthritis, right knee Category: Medical Qualifiers: Osteoarthritis type: primary Qualified Code(s): M17.11 - Unilateral primary osteoarthritis, right knee Plan: Right knee x-rays done earlier this year revealed no acute fracture but (+) mild osteoarthritic changes in the right knee She has been referred to physical therapy, which she states helped (6) Osteopenia: Code(s): M85.80 - Other specified disorders of bone density and structure, unspecified site Category: Medical Qualifiers: Osteopenia location: unspecified Qualified Code(s): M85.80 - Other specified disorders of bone density and structure, unspecified site Plan: Repeat BMD done in September 2021 revealed (+) osteopenia based on the lowest T-score value of -1.2 in the femoral neck - results are mostly unchanged from her previous BMD scan Patient is again encouraged to continue to stay active and exercise regularly and to continue taking her daily Calcium and Vitamin D supplements Will now send her for repeat BMD for follow up (7) Depression: Code(s): F32.9 - Major depressive disorder, single episode, unspecified Category: Medical Qualifiers: Depression Type: unspecified Qualified Code(s): F32.9 - Major depressive disorder, single episode, unspecified Plan: Resolved/controlled - patient used to take Citalopram but stopped it (on her own) last year States that she has been doing well since and does not have any problems/issues with depression currently (8) Cervical cancer screening: Code(s): Z12.4 - Encounter for screening for malignant neoplasm of cervix Category: Medical Plan: [facility] and pap smear (9) Colon cancer screening: Code(s): Z12.11 - Encounter for screening for malignant neoplasm of colon Category: Medical Plan: Will refer her to GI for repeat colonoscopy - states that her previous ones were done in [place] and thinks that her last colonoscopy was about 10 years ago now (10) Breast cancer screening: Code(s): Z12.39 - Encounter for other screening for malignant neoplasm of breast Category: Medical Qualifiers: Breast cancer screening modality: mammogram Qualified Code(s): Z12.31 - Encounter for screening mammogram for malignant neoplasm of breast Plan: Will send her for her annual mammography Plan Follow up in 4 months Orders: Orders MM tomosynthesis screening BI 02/02/24 Z12.31 - Encounter for screening mammogram for malignant neoplasm of breast XR DEXA axial skeleton 02/02/24 M85.80 - Other specified disorders of bone density and structure, unspecified site, Z78.0 - Asymptomatic menopausal state Referrals [facility] Referral Z12.4 - Encounter for screening for malignant neoplasm of cervix Gastroenterology Referral Z12.11 - Encounter for screening for malignant neoplasm of colon
== END 2024-02-02 17:44 | disposition home or self-care (01) ==
PROVIDERS: PCP Internal Medicine; Visit Provider Internal Medicine
DX: Z00.00 Encounter for general adult medical examination without abnormal findings (principal); G50.0 Trigeminal neuralgia; E78.5 Hyperlipidemia, unspecified; J30.9 Allergic rhinitis, unspecified; M17.11 Unilateral primary osteoarthritis, right knee; M85.80 Other specified disorders of bone density and structure, unspecified site; F32.9 Major depressive disorder, single episode, unspecified; Z12.4 Encounter for screening for malignant neoplasm of cervix; Z12.11 Encounter for screening for malignant neoplasm of colon; Z12.31 Encounter for screening mammogram for malignant neoplasm of breast

== ENCOUNTER → 2024-02-02 16:10 | Outpatient (BNVA) | payer OTHER, SELFPAY | PROVIDERS: PCP Internal Medicine; Visit Provider Internal Medicine | DX: Z00.00 Encounter for general adult medical examination without abnormal findings (principal); G50.0 Trigeminal neuralgia; E78.5 Hyperlipidemia, unspecified; J30.9 Allergic rhinitis, unspecified; M17.11 Unilateral primary osteoarthritis, right knee; M85.80 Other specified disorders of bone density and structure, unspecified site; F32.9 Major depressive disorder, single episode, unspecified | CPT/HCPCS: 96127; 99397 ==

== ENCOUNTER 2024-03-21 12:56 | Outpatient (REF) | payer MEDICARE, SELFPAY ==
--- NOTE | ~2024-03-21 | MM_ITS ---
EXAMINATION: MM SCREENING DIGITAL BREAST TOMOSYNTHESIS, BILATERAL CLINICAL INFORMATION: Screening. Asymptomatic. COMPARISON: Mammography: Comparison is made with available priors TECHNIQUE: Digital breast mammography with tomosynthesis is performed in both the craniocaudal and mediolateral oblique views along with computer-aided detection (CAD). FINDINGS: There are scattered areas of fibroglandular density (ACR BI-RADS breast composition Category b). There are no significant masses, abnormal calcifications, or other abnormalities. MM/MM tomosynthesis screening BI IMPRESSION: No mammographic evidence of malignancy. ASSESSMENT: BI-RADS BI-RADS 1 - Negative RECOMMENDATION: Routine annual mammography screening. 1 year F/U This examination should not preclude the clinical evaluation of a suspicious palpable abnormality. This patient's information was entered into a reminder system with a target due date for their next mammogram. Electronically signed by: Latesha Arroyo DO 03/30/2024 09:12 PM [facility]
--- NOTE | ~2024-03-21 | MM_ITS ---
EXAMINATION: Dual-Energy X-ray Absorptiometry - Bone Density Study HISTORY: Estrogen deficiency TECHNIQUE: [place] Dual energy absorptiometry (DEXA) of the lumbar spine, total left hip, and femoral neck was performed. COMPARISON: Comparison is made with the prior examination dated 09/22/2021. FINDINGS: The bone mineral density of the lumbar spine is 1.245 with a T-score of 0.5, and a Z-score of 2.0. This represents a BMD change of 2.6% compared to the prior exam. This is statistically significant. The bone mineral density of the left total hip is 0.969 with a T-score of -0.3, and a Z-score of 0.9. This represents BMD change of -2.4% compared to the prior exam. This is not statistically significant. The bone mineral density of the left femoral neck is 0.817 with a T-score of -1.6, and a Z-score of 0.2. This represents BMD change of -5.8% compared to the prior exam. FRACTURE RISK: The FRAX index suggests a ten year probability of major osteoporotic fracture of 9.7%, and of hip fracture 1.2%. MM/XR DEXA axial skeleton IMPRESSION: Based on bone mineral density, the diagnosis is consistent with osteopenia. All bone density values are in grams per centimeter squared. At this facility, the least significant change in BMD with 95% confidence is 0.022 at the lumbar spine, 0.027 at the hip, and 0.023 at the distal 1/3 radius. Electronically signed by: Favio Rich MD 03/26/2024 09:50 AM EST
== END 2024-03-21 12:57 | disposition home or self-care (01) ==
LOC: HO.MAMMO 12:56
PROVIDERS: PCP Internal Medicine; Visit Provider Internal Medicine
DX: Z12.31 Encounter for screening mammogram for malignant neoplasm of breast (principal); M85.80 Other specified disorders of bone density and structure, unspecified site; Z78.0 Asymptomatic menopausal state
CPT/HCPCS: 77063; 77067; 77080

== ENCOUNTER → 2024-03-21 13:30 | Outpatient (BNV) | payer MEDICARE, SELFPAY | PROVIDERS: PCP Internal Medicine; Visit Provider Radiology Diagnostic Radiology | DX: Z12.31 Encounter for screening mammogram for malignant neoplasm of breast (principal) | CPT/HCPCS: 77063; 77067 ==

== ENCOUNTER 2024-03-30 09:04 | Outpatient (AMB) | payer MEDICARE, SELFPAY ==
--- NOTE | 2024-03-30 10:20 | MHC.OFFWIV ---
Intake Vital Signs 03/30/24 10:34 Weight 153 lb 8 oz BP 110/54 L Blood Pressure Location Rt brachial Position Sitting Pulse 85 Pulse Source Pulse Oximeter Temp 98.8 F Temp Source Oral Pulse Oximetry (%) 95 Oxygen Delivery Method Room Air Intake Visit Reasons: EP ?pneumonia, Wheezing Intake Note: Patient is here for slight cough, chest tightness/discomfort, chills, very fatigued, tremors and having difficulty forming sentences. Daughter states it started about 2 days ago. Patient Tobacco Use Status: Never used Tobacco Allergies cephalexine Adverse Reaction (Intermediate, Uncoded 03/30/24 12:30) eye swelling Do you need a note to return to daycare/school/sports/work: No HPI EP ?pneumonia, Wheezing HPI Details Patient is a 68-year-old female comes to the walk-in clinic with her daughter reporting 3 days of mild cough- worse at night, chest tightness/discomfort, chills/shaking, unsteady/unbalanced, very fatigued/generalized weakness, myalgias, nausea, and having difficulty forming sentences ( loopy per daughter). Patient reports she went out with friends last night, woke up in the middle of the night with symptoms worse. She also reports that she was incontinent of urine this morning, and leaked on the floor as she felt too weak to get to the toilet in time to urinate. She denies dysuria, urinary frequency, blood in the urine, fever or chills, vertigo, vomiting or diarrhea, sore throat, nasal congestion, productive cough or other significant associated symptoms. [facility] Medical History Pain in right knee Hearing impairment Allergic rhinitis Depression Trigeminal neuralgia of left side of face Surgical History History of cranioplasty History of ear surgery History of nasal septoplasty Family History Father No problems noted. Mother No problems noted. 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 Cognitive needs: No Hearing needs: No Vision needs: Yes Review of Systems Const All systems reviewed & are unremarkable except as noted in HPI and below Neuro Reports confusion (Intermittently slurred speech, inconsistent answers) Psych Reports confusion (Intermittently slurred speech, inconsistent answers) Physical Exam Vital Signs: Last Vital Signs Temp 98.8 F 03/30/24 10:34 Pulse 85 03/30/24 10:34 BP 110/54 L 03/30/24 10:34 Pulse Ox 95 03/30/24 10:34 Oxygen Delivery Method Room Air 03/30/24 10:34 Const General: cooperative, comfortable, alert, awake, Physically active, confusion (Intermittently slurred speech, inconsistent answers), ill appearing, tired appearing and well groomed; No healthy appearing, anxious, diaphoretic, intoxicated appearing or poor hygiene Nutritional Appearance: average body habitus Orientation/consciousness: confusion (Intermittently slurred speech, inconsistent answers) HEENT Head: Yes normal to inspection, Yes normocephalic and Yes atraumatic Ears: hearing grossly normal bilaterally, external ears normal, TM's normal bilaterally and EAC's normal General nose exam: Normal external nose present, Normal nares present, No nasal polyps present, Normal nasal mucous membranes and turbinates present, Normal septum present and No nasal discharge present Face and sinus: Yes normal facial exam, Yes sinuses nontender and Yes face symmetric Mouth: Normal oral and palatal mucosa present, lip normal and tongue normal Throat: Yes posterior oropharynx normal, Yes abnormal tonsil (mildly erythematous bilaterally), No peritonsillar mass, No postnasal drainage, No uvular edema and No cobblestoning Eyes General: appearance normal, both eyes and all related structures Resp Effort & Inspection: normal respiratory effort, able to speak in complete sentences, no audible wheezes, Actively coughing (Mild intermittent) Quality: productive, no grunting, not labored, no nasal flaring, no retractions, no stridor and symmetric chest movement Auscultation: clear to auscultation bilaterally, no rales, no rhonchi, no wheezes, diminished lung sounds and No rub present Cardio Rhythm: regular rhythm Heart sounds: S1 normal heart sound present and S2 normal heart sound present Skin Other: pale, warm and dry Neuro General: confusion (Intermittently slurred speech, inconsistent answers) Psych Appearance: disheveled Mental Status: mental status grossly abnormal Speech and movement: Slurred speech present (Intermittent) and Slowed speech present (Psych) (Intermittent) Affect: normal affect Attitude: cooperative Assessment & Plan Assessment & Plan (1) Weakness: Code(s): R53.1 - Weakness Plan: Patient is a 68-year-old female who presents at the walk-in with her daughter, complaining of a few days of mild cough- worse at night, chest tightness/discomfort, chills/shaking, unsteady/unbalanced, very fatigued/generalized weakness, myalgias, nausea, and having difficulty forming sentences ( loopy per daughter). She also reports that she was incontinent of urine this morning, and leaked on the floor as she felt too weak to get to the toilet in time to urinate. She has no other UTI symptoms, however urine dip was not able to be performed as she was too weak and shaky to hold the urine cup and she dropped it into the toilet. She was also very unsteady, and had to hold onto the wall to keep her balance. Her reflexes are sluggish, and she showed signs of altered mental status intermittently. Daughter agreed that she was not at her baseline behavior. Her lung sounds are diminished, and she complains of chest tightness. While her vital signs are overall stable, her appearance is not and I told her that I am worried that she might have pneumonia or a severe urinary tract infection, and might even be septic at this point, and was in no shape to be taking care of herself as an outpatient. I told her that I do not feel comfortable evaluating her further at the walk-in, and told her that she should go to the emergency department for further evaluation and treatment. While she was not happy to hear this, she did agree to being transported to the emergency department by her daughter, and expect was called in. Coding Level of Care Code Est Pt Level 4 (57920) Diagnoses Weakness R53.1
[2024-03-30 10:34] VITALS: BP 110/54; PULSE 85; TEMP 37.1; O2SAT 95
== END 2024-03-30 13:28 | disposition home or self-care (01) ==
PROVIDERS: PCP Internal Medicine; Visit Provider Physician Assistant Medical
DX: R53.1 Weakness (principal)

== ENCOUNTER 2024-03-30 12:12 | Inpatient (IN) | payer MEDICARE, SELFPAY ==
--- NOTE | ~2024-03-30 | XR_ITS ---
CLINICAL HISTORY: cough, sob, chills Chest Radiographs, 2 views Comparison: None Findings: No cardiomegaly. Normal mediastinal contours. No pneumothorax. Opacity in the right upper lobe. No pleural effusion. Normal upper abdomen. No acute fracture. Impression: Opacity in the right upper lobe may indicate pneumonia. Follow up to resolution. This document has been electronically signed by: Radha Crenshaw MD on 03/30/2024 13:31:00
[2024-03-30 12:27] VITALS: BP 136/52; PULSE 86; RESP 19; TEMP 36.1; O2SAT 98; BMI 25.5
--- NOTE | 2024-03-30 12:31 | ED_ITS ---
HPI - General Adult General Chief complaint: Upper Respiratory Symptoms Stated complaint: pnemonia? Time Seen by Provider: 03/30/24 14:11 Source: patient Mode of arrival: ambulatory Limitations: no limitations History of Present Illness ED Provider: DR. Almonte HPI narrative: 68-year-old female came in for evaluation of fever, generalized weakness, shortness of breath, cough with a white sputum, no sick contacts, no recent travel, no lower extremity swelling or tenderness. Related Data Previous Rx's ?Medication ?Instructions ?Recorded Grab bar #1 ea 01/24/23 naproxen 500 mg tablet 500 mg PO BID PRN pain 14 days #28 11/16/23 tabs carbamazepine 400 mg 400 mg PO BID 90 days #180 tabs 02/26/24 tablet,extended release,12 hr pregabalin 150 mg capsule 150 mg PO BID 30 days #60 caps 03/29/24 Allergies Allergy/AdvReac Type Severity Reaction Status Date / Time cephalexine AdvReac Intermediate eye Uncoded 03/30/24 12:30 swelling Review of Systems 2 Review of Systems: All other systems are reviewed and are negative Constitutional: Reports as per HPI and Reports no additional constitutional complaints Eyes: Reports as per HPI and Reports no additional eye complaints Reports system reviewed and no additional complaints, except as documented Cardiovascular: Reports as per HPI and Reports no additional cardiovascular complaints Respiratory: Reports as per HPI and Reports no additional respiratory complaints Gastrointestinal: Reports as per HPI and Reports no additional gastrointestinal complaints Genitourinary: Reports no additional female genitourinary complaints Musculoskeletal: Reports no additional musculoskeletal complaints Skin/Breast: Reports system reviewed and no additional complaints, except as docu Psychiatric: Reports no additional psychiatric complaints Endocrine: Reports no additional endocrine complaints Hematologic/Lymphatic: Reports no additional hematologic/lymphatic complaints Allergic/Immunologic: Reports no additional allergic/immunologic complaints Reports system reviewed and no additional complaints, except as documented and Reports Abnormal speech present [facility] Past Medical History Medical History Pain in right knee Hearing impairment Allergic rhinitis Depression Trigeminal neuralgia of left side of face Surgical History History of cranioplasty History of ear surgery History of nasal septoplasty Family History Family History Father No problems noted. Mother No problems noted. 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 Blood pressure elevated. Heart rate normal. Respiratory rate normal. Temperature normal. Oxygen saturation normal. Appearance: Alert. Oriented X3. No acute distress. Head: Normal external exam. Normocephalic. Atraumatic. No Flores signs noted. No raccoon eyes noted Eyes: PERRLA. EOMI. Conjunctiva and sclera normal. Eyelids normal. ENT: TM's Normal. Pharynx normal. Uvula midline. Moist mucous membranes. No trismus noted. No drooling noted. No muffled voice noted. Neck: Normal inspection. Neck supple. FROM. No adenopathy. Thyroid Normal. No meningeal signs. No neck mass noted. CVS: Normal heart rate and rhythm. Heart sound normal. No murmurs noted. Pulses normal throughout. Respiratory: No respiratory distress. Painless inspiration. Breath sounds normal. No wheezes/rales/rhonchi noted. Chest nontender. No accessory muscle usage noted or decreased air movement noted. Abdomen: Soft and nontender. Bowel sounds normal in all 4 quadrants. No distention noted. No organomegaly noted. No visible injury noted. Back: No CVA tenderness. Full range of motion noted. Skin: Skin warm and dry. Normal skin color. Normal skin turgor. No rashes/lesions/lacerations noted. Extremities: No lower extremity edema. Extremities exhibit normal range of motion. Extremities nontender. Neuro: Oriented X 3. Cranial nerve exam: II-XII are grossly intact No motor deficit. No sensory deficit. Reflexes normal. Course Course Course Narrative: This is a Rapid Medical Examination (RME) performed by Obie Marks PA-C in triage. Full HPI, ROS, assessment and treatment plan per primary provider in the Main ED. 68 yo female here for eval of headache, cough, chills, fatigue, and sob x2 days. seen at this morning, had shaking chills while giving UA and dropped the cup in the toilet. was then told to come to the ED for further evaluation. Plan: labs, cxr, UA 1349 -- cxr showing PNA, white count of 21, 15% bands. will add on lactic/ blood cultures. studio operations engineer in charge aware. Reevaluation(s) Reevaluation #1: Pneumonia with sepsis heart rate is 98 and leukocytosis. Lactic acid above to patient meet criteria for severe sepsis. Received fluid and antibiotic. Time: 16:28 Medications Administered Discontinued Medications Generic Name Dose Route Start Last Admin Trade Name Freq PRN Reason Stop Dose Admin Ceftriaxone Sodium 1 gm 03/30/24 14:25 03/30/24 14:35 Ceftriaxone Sodium 1 Gm Vial IVPUSH 03/30/24 14:26 1 gm ONCE ONE Administration Doxycycline Hyclate 100 mg/ 250 mls @ 166.67 mls/hr 03/30/24 14:25 03/30/24 14:52 Sodium Chloride IV 03/30/24 15:54 166.67 mls/hr ONCE ONE Administration Medical Decision Making Differential Diagnosis Differential Diagnoses: The differential diagnosis associated with the presentation includes (Pneumonia, pneumothorax, pleural effusion, UTI, electrolyte derangement, severe anemia.) Admission/Observation Consideration of admission/observation: Escalation of care including admission/observation considered Consult Healthcare Provider Management of the patient was discussed with: Hospitalist (Dr. Wilburn) Lab Data MDM Lab Attestation statement: I reviewed the patient's lab results. 03/30/24 12:59 03/30/24 12:59 Labs: Lab Results 03/30/24 03/30/24 03/30/24 Range/Units 12:59 14:15 15:44 WBC 21.2 H (4.8-10.8) X10*3/uL RBC 4.20 (4.20-5.50) X10*6/uL Hgb 13.5 (12.0-16.0) g/dl Hct 37.9 (37.0-47.0) % MCV 90.2 (80.0-98.0) fL MCH 32.1 (27.0-33.0) pg MCHC 35.6 H (31.0-35.0) g/dl RDW 11.6 (11.0-16.0) % Plt Count 238 (160-400) X10*3/uL MPV 9.5 (9.4-12.3) fL Immature Gran % (Auto) Cancelled Neut % (Auto) Cancelled Lymph % (Auto) Cancelled [place] % (Auto) Cancelled Eos % (Auto) Cancelled Baso % (Auto) Cancelled Lymph # (Auto) Cancelled [place] # (Auto) Cancelled Eos # (Auto) Cancelled Baso # (Auto) Cancelled Abs Immat Gran (auto) Cancelled Absolute Neuts (auto) Cancelled Absolute Nucleated RBC 0.000 (0.0-0.012) X10*3/uL Nucleated RBC % (auto) 0.0 (0.0-0.2) /100WBC Neutrophils % (Manual) 82 H (45-73) % Band Neutrophils % 15 H (3-5) % Lymphocytes % (Manual) 1 L (20-40) % Monocytes % (Manual) 2 (2-11) % Abs Neuts (Manual) 20.6 H (2.0-8.3) X10*3/uL Lymphocytes # (Manual) 0.2 L (1.2-4.9) X10*3/uL Monocytes # (Manual) 0.4 (0.1-1.2) X10*3/uL Platelet Estimate NORMAL (NORMAL) Plt Morphology Comment NORMAL RBC Morphology NORMAL Smear Tech's Comments MANUAL DIFF Sodium 133 L (135-145) mmol/L Potassium 3.4 (3.3-5.1) mmol/L Chloride 101 (96-108) mmol/L Carbon Dioxide 26 (22-29) mmol/L Anion Gap 9 L (12-20) BUN 12 (9-16) mg/dL Creatinine 0.90 (0.5-1.4) mg/dL Estim Creat Clear Calc 60.1 Estimated GFR > 60 Random Glucose 221 H (60-115) mg/dL Lactic Acid 2.5 H* 3.1 H* (0.5-2.0) mmol/L Calcium 9.0 D (8.4-10.2) mg/dL Magnesium 1.6 (1.6-2.6) mg/dL Total Bilirubin 0.4 (0.0-1.0) mg/dL AST 23 (5-31) U/L ALT 19 (0-31) U/L Alkaline Phosphatase 92 (39-117) U/L Total Protein 6.5 (6.5-8.0) g/dL Albumin 3.8 (3.5-5.0) g/dL Urine Color Yellow Urine Appearance Clear Urine pH 7.5 (5.0-9.0) Ur Specific [place] 1.020 (1.005-1.025) Urine Protein 30 (1+) H (Neg-Trace) mg/dL Urine Glucose (UA) 500 H (Negative) mg/dL Urine Ketones Trace (Negative) mg/dL Urine Blood Negative (Negative) Urine Nitrite Negative (Negative) Ur Leukocyte Esterase Moderate (2+) H (Negative) Urine RBC 0-2 (0-2) /HPF Urine WBC 11-20 H (0-5) /HPF Ur Squamous Epith Cells 6-10 (0-2) /HPF Urine Bacteria 1+ (None Seen) Hyaline Casts 3-5 (0-2) /LPF Influenza Type A (PCR) NEGATIVE (Negative) Influenza Type B (PCR) NEGATIVE (Negative) RSV RNA Qual (PCR) NEGATIVE (Negative) SARS-CoV-2 RNA (RT-PCR) NEGATIVE (Negative) Independent Interpretation I performed an independent interpretation of an: Plain X-Ray (Chest:Opacity in the right upper lobe may indicate pneumonia. Follow up to resolution.) Radiology Impression Discussion of test interpretation with radiology: I have reviewed the radiologist's reading. Discharge Plan Discharge Clinical Impression: Pneumonia, Acute UTI, Severe sepsis Patient Disposition: Admitted As Inpatient Prescriptions: No Action (DME) Grab bar Misc See Rx Instructions .Route Qty: 1 0RF Rx Instructions: As directed carbamazepine 400 mg tablet extended release 12 hr 400 mg PO BID 90 Days Qty: 180 1RF pregabalin 150 mg capsule 150 mg PO BID 30 Days Qty: 60 0RF naproxen 500 mg tablet 500 mg PO BID PRN (Reason: pain) 14 Days Qty: 28 0RF Rx Instructions: Take with food ONLY as needed for pain Print Language: Maltese
[2024-03-30 13:16] LABS: Hematocrit 37.9 % (37.0-47.0); Hemoglobin 13.5 g/dl (12.0-16.0); Mean Corpuscular HGB Conc 35.6 g/dl (31.0-35.0); Mean Corpuscular Hemoglobin 32.1 pg (27.0-33.0); Mean Corpuscular Volume 90.2 fL (80.0-98.0); Mean Platelet Volume 9.5 fL (9.4-12.3); Platelet Count 238 X10*3/uL (160-400); Red Cell Distribution Width 11.6 % (11.0-16.0); White Blood Count 21.2 X10*3/uL (4.8-10.8)
[2024-03-30 13:18] LABS: Appearance Urine Clear; Color Urine Yellow; Glucose Urine UA 500 mg/dL (Negative); Leukocyte Esterase Urine Moderate (2+) (Negative); Nitrite Urine Negative (Negative); PH 7.5 (5.0-9.0); UMIC TRIGGER UACC YES; Urine Blood Negative (Negative); Urine Ketones Trace mg/dL (Negative); Urine Protein 30 (1+) mg/dL (Neg-Trace)
[2024-03-30 13:32] LABS: Alanine Aminotransferase 19 U/L (0-31); Albumin Level 3.8 g/dL (3.5-5.0); Alkaline Phosphatase 92 U/L (39-117); Anion Gap 9 (12-20); Aspartate Amino Transferase 23 U/L (5-31); Bilirubin Total 0.4 mg/dL (0.0-1.0); Blood Urea Nitrogen 12 mg/dL (9-16); Carbon Dioxide 26 mmol/L (22-29); Chloride 101 mmol/L (96-108); Creatinine Clr Calc Pharmacy 60.1; Estimated Glomerular Filt Rate > 60; Glucose Random 221 mg/dL (60-115); Magnesium 1.6 mg/dL (1.6-2.6); Potassium 3.4 mmol/L (3.3-5.1); Sodium 133 mmol/L (135-145); Total Protein 6.5 g/dL (6.5-8.0)
[2024-03-30 13:41] LABS: Bacteria Urine 1+ (None Seen); RBC Urine 0-2 /HPF (0-2); SLIDE REVIEW MANUAL DIFF; UACC Culture Trigger YES
[2024-03-30 13:45] LABS: Neutrophils Percent Manual 82 % (45-73)
[2024-03-30 13:47] LABS: Band Neutrophils Percent 15 % (3-5); Lymphocytes Absolute Manual 0.2 X10*3/uL (1.2-4.9); Lymphocytes Percent Manual 1 % (20-40); Monocytes Absolute Manual 0.4 X10*3/uL (0.1-1.2); Monocytes Percent Manual 2 % (2-11); Neutrophils Absolute Manual 20.6 X10*3/uL (2.0-8.3)
[2024-03-30 13:48] LABS: Platelet Estimate NORMAL (NORMAL); Platelet Morphology Comment NORMAL; RBC Morphology NORMAL
[2024-03-30 13:57] LABS: Influenza A PCR NEGATIVE (Negative); Influenza B PCR NEGATIVE (Negative); Resp Syncy Virus RNA Qual PCR NEGATIVE (Negative); SARS COV2 PCR INHOUSE NEGATIVE (Negative)
[2024-03-30] MEDS: cefTRIAXone sodium 1 GM VIAL IVPUSH (14:35)
[2024-03-30] MEDS: Doxycycline Hyclate 100 MG in 0.9 % Sodium Chloride 250 ML 166.67 MG IV (14:52)
[2024-03-30 15:09] LABS: Lactic Acid 2.5 mmol/L (0.5-2.0)
[2024-03-30 15:51] VITALS: BP 144/54; PULSE 98; RESP 16; TEMP 36.6; O2SAT 94
[2024-03-30 16:13] LABS: Lactic Acid 3.1 mmol/L (0.5-2.0)
[2024-03-30 16:21] LABS: Reflex Lactate? Lactic Acid Added
[2024-03-30] MEDS: 0.9 % Sodium Chloride 1,000 ML 999 ML IV (16:51)
[2024-03-30 16:57] VITALS: O2SAT 97
[2024-03-30 17:47] LABS: Reflex Lactate? Lactic Acid Added
--- NOTE | 2024-03-30 17:51 | PM.IMHP ---
History of Present Illness Date of Service: 03/30/24 Chief Complaint: Malaise, Cough, fever A 68 years old lady with PMH of OA, HLD, Depression who presents to ED complaining of fever, fatigue, cough for the last 3 days. The patient reports that she started feeling wheezing in her chest starting few days ago that resolved on its own when she goes to sleep associated with increasing cough with mucus. Yesterday she felt really cold and started having rigors. this morning she could not hold up a cup that fell from her hand. No chest pain, palpitations, nausea, vomiting, diarrhea or urinary symptoms. In ED found to have elevated WBCs with bands, CXR concerning for pneumonia and UA showing possible UTI. Admitted for further evaluation and treatment. Review of Systems Review of Systems: having fever, chills and weakness No chest pain, palpitation reports wheezing and coughing No abdominal pain, nausea or vomiting No urinary symptoms No any rash [facility] Medical History (Updated 03/30/24 @ 18:05 by Ash Wilburn MD) Pain in right knee Hearing impairment Allergic rhinitis Depression Trigeminal neuralgia of left side of face Family History Father No problems noted. Mother No problems noted. 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 Cognitive needs: No Hearing needs: No Vision needs: Yes Meds Allergies Allergy/AdvReac Type Severity Reaction Status Date / Time cephalexine AdvReac Intermediate eye Uncoded 03/30/24 12:30 swelling Home Medications ?Medication ?Instructions ?Recorded ?Confirmed ?Last Taken ?Type carbamazepine 400 mg 800 mg PO BID 03/30/24 Unknown History tablet,extended release,12 hr mometasone 0.1 % topical solution 1 appl topical BID PRN Itching 03/30/24 Unknown History Physical Exam Vital Signs and Narrative: Vital Signs: Last Vital Signs Temp 97.8 F 03/30/24 15:51 Pulse 98 03/30/24 15:51 Resp 16 03/30/24 15:51 BP 144/54 H 03/30/24 15:51 Pulse Ox 97 03/30/24 16:57 O2 Del Method Room Air 03/30/24 16:57 BMI result Body Mass Index 25.5 Const: Other: Constitutional : Awake, interactive, not in distress Neck : Normal inspection, Supple Cardiovascular : RRR, no JVP, no lower extremity edema Respiratory : fair bilateral air entry, basal fine right sided crackles, expiratory fine wheezes Gastrointestinal: soft, lax, Normal bowel sounds, Non tender Skin : Warm, Dry Neurological : Alert & oriented x3, No focal deficit Results Labs 03/30/24 12:59 03/30/24 12:59 Labs: Laboratory Results - last 24 hr 03/30/24 03/30/24 03/30/24 12:59 14:15 15:44 MCV 90.2 MCH 32.1 MCHC 35.6 H RDW 11.6 Plt Count 238 MPV 9.5 Immature Gran % (Auto) Cancelled Neut % (Auto) Cancelled Lymph % (Auto) Cancelled [place] % (Auto) Cancelled Eos % (Auto) Cancelled Baso % (Auto) Cancelled Lymph # (Auto) Cancelled [place] # (Auto) Cancelled Eos # (Auto) Cancelled Baso # (Auto) Cancelled Abs Immat Gran (auto) Cancelled Absolute Neuts (auto) Cancelled Absolute Nucleated RBC 0.000 Nucleated RBC % (auto) 0.0 Neutrophils % (Manual) 82 H Band Neutrophils % 15 H Lymphocytes % (Manual) 1 L Monocytes % (Manual) 2 Abs Neuts (Manual) 20.6 H Lymphocytes # (Manual) 0.2 L Monocytes # (Manual) 0.4 Platelet Estimate NORMAL Plt Morphology Comment NORMAL RBC Morphology NORMAL Smear Tech's Comments MANUAL DIFF Anion Gap 9 L Estim Creat Clear Calc 60.1 Estimated GFR > 60 Random Glucose 221 H Lactic Acid 2.5 H* 3.1 H* Calcium 9.0 D Magnesium 1.6 Total Bilirubin 0.4 AST 23 ALT 19 Alkaline Phosphatase 92 Total Protein 6.5 Albumin 3.8 Urine Color Yellow Urine Appearance Clear Urine pH 7.5 Ur Specific [place] 1.020 Urine Protein 30 (1+) H Urine Glucose (UA) 500 H Urine Ketones Trace Urine Blood Negative Urine Nitrite Negative Ur Leukocyte Esterase Moderate (2+) H Urine RBC 0-2 Urine WBC 11-20 H Ur Squamous Epith Cells 6-10 Urine Bacteria 1+ Hyaline Casts 3-5 Influenza Type A (PCR) NEGATIVE Influenza Type B (PCR) NEGATIVE RSV RNA Qual (PCR) NEGATIVE SARS-CoV-2 RNA (RT-PCR) NEGATIVE Assessment and Plan (1) Acute UTI: Status: Acute (2) Pneumonia: Status: Acute (3) Sepsis: Status: Acute Plan A 68 years old lady with PMH of OA, HLD, Depression who presents to ED complaining of fever, fatigue, cough for the last 3 days. Sepsis 2/2 CAP with acute lactic acidosis Meets sepsis with Infx, Tachycardia and Leukocytosis with bands and LA CXR showing RUL infirtrate pending cultures Start Azithromycin and Ceftriaxone Cough medicine PRN Nebulizer will need CXR repeat to follow on the Opacity in 2 months or so UTI pending cultures on Ceftriaxone Hx Trigeminal neuralgia LYrica and Carbamazepine bid DVT PPx Lovenox The patient will need 2 overnight hospital stay for treatment of sepsis pending final blood cultures while on IV antibiotics. Quality Stroke Does the patient have a stroke diagnosis?: No VTE Prior VTE?: No VTE Risk Level:: Medical - moderate - high VTE Device Contraindication: Treatment Not Indicated VTE Drug Contraindication: N/A - Med Ordered
[2024-03-30] MEDS: Enoxaparin Sodium 40 MG/0.4 ML SYRINGE SUBCUT (18:32)
[2024-03-30] MEDS: Azithromycin 500 MG in 0.9 % Sodium Chloride 250 ML 125 MG IV (18:32)
--- NOTE | 2024-03-30 18:42 | PHA.MEDREC ---
Pharmacy Consult ? Medication Reconciliation Pharmacy has completed the medication reconciliation.
[2024-03-30 19:12] VITALS: BP 114/56; PULSE 78; RESP 16; TEMP 37.3; O2SAT 94
[2024-03-30 19:59] LABS: ~Lactic Acid-LAB USE ONLY 0.8 mmol/L (0.5-2.0)
[2024-03-30] MEDS: Lactated Ringers 1,000 ML 100 ML IVCONT (20:46)
[2024-03-30 21:41] VITALS: BP 145/66; PULSE 87; RESP 18; TEMP 36.7; O2SAT 96
[2024-03-30] MEDS: Pregabalin 150 MG CAPSULE PO (22:16)
[2024-03-30] MEDS: Ibuprofen 400 MG TABLET PO (22:16)
[2024-03-30] MEDS: Benzonatate 100 MG CAPSULE PO (22:16)
[2024-03-30] MEDS: carBAMazepine ER 200 MG TAB.ER.12H 400 MG PO (22:16)
--- NOTE | 2024-03-30 23:44 | PC.NURSE ---
Pt came to the unit per stretcher at 2130, alert and oriented, denies any SOB, c/o mild MORALES, prn Motrin po given with good effect, vitals WNL, settled in bed and room, callbell in reach.
[2024-03-30 23:51] VITALS: BP 118/56; PULSE 68; RESP 18; TEMP 37.2; O2SAT 95
[2024-03-31] VITALS (7 sets, daily range): BP systolic 108–144; BP diastolic 53–67; PULSE 59–90; RESP 16–18; TEMP 36–37.9; O2SAT 94–98
[2024-03-31] MEDS: Lactated Ringers 1,000 ML 100 ML IVCONT ×2 (05:23→17:52)
[2024-03-31 06:05] LABS: MANUAL DIFF FLAG NO
[2024-03-31 06:06] LABS: Basophils Percent Auto 0.2 % (0-2); Eosinophils Percent Auto 0.1 % (0-4); Hemoglobin 11.3 g/dl (12.0-16.0); Imm Gran Abs Auto 0.31 X10*3/uL (0.00-0.03); Imm Gran Pct Auto 1.6 % (0.0-0.4); Mean Corpuscular HGB Conc 36.5 g/dl (31.0-35.0); Mean Corpuscular Hemoglobin 32.9 pg (27.0-33.0); Mean Corpuscular Volume 90.4 fL (80.0-98.0); Mean Platelet Volume 9.6 fL (9.4-12.3); Monocytes Absolute Auto 0.8 X10*3/uL (0.1-1.2); Monocytes Percent Auto 4.2 % (2-11); Neutrophils Absolute Auto 17.1 x10*3/uL (2.0-8.3); Neutrophils Percent Auto 88.9 % (45-73); Platelet Count 189 X10*3/uL (160-400); Red Blood Count 3.43 X10*6/uL (4.20-5.50); Red Cell Distribution Width 11.8 % (11.0-16.0); White Blood Count 19.2 X10*3/uL (4.8-10.8)
[2024-03-31 06:26] LABS: Anion Gap 7 (12-20); Blood Urea Nitrogen 9 mg/dL (9-16); Calcium 8.5 mg/dL (8.4-10.2); Carbon Dioxide 26 mmol/L (22-29); Chloride 107 mmol/L (96-108); Creatinine Clr Calc Pharmacy 94.9; Estimated Glomerular Filt Rate > 60; Glucose Random 93 mg/dL (60-115); Potassium 3.3 mmol/L (3.3-5.1); Sodium 137 mmol/L (135-145)
[2024-03-31] MEDS: carBAMazepine ER 200 MG TAB.ER.12H 400 MG PO ×2 (07:49→21:50)
[2024-03-31] MEDS: Pregabalin 150 MG CAPSULE PO ×2 (07:49→21:50)
[2024-03-31] MEDS: Benzonatate 100 MG CAPSULE PO ×3 (07:50→21:50)
[2024-03-31] MEDS: Albuterol Sulfate (0.083%) 2.5 MG/3 ML VIAL.NEB INHALE (08:27)
--- NOTE | 2024-03-31 09:57 | MHC.CM.PN ---
P[T IS INDEPEND[facility] HAS OWN RIDE HOME DC PLAN HOME N/S
[2024-03-31] MEDS: guaiFENesin DM 600/30 1 TAB TAB.ER.12H PO ×2 (10:53→21:50)
--- NOTE | 2024-03-31 11:52 | HO.PM.IMPN ---
Subjective Subjective Date of Service: 03/31/24 Interval History: seen and evaluated this morning Feels better overall no fever overnight Review of Systems Review of Systems: Yes all other systems are reviewed and are negative Physical Exam Vital Signs: Vital Signs: Last Vital Signs Temp 97.6 F 03/31/24 07:16 Pulse 81 03/31/24 08:33 Resp 16 03/31/24 08:33 BP 130/60 03/31/24 07:16 Pulse Ox 95 03/31/24 07:16 O2 Del Method Room Air 03/31/24 07:16 BMI result Body Mass Index 25.5 Const: Other: Constitutional : Awake, interactive, not in distress Neck : Normal inspection, Supple Cardiovascular : RRR, no JVP, no lower extremity edema Respiratory : fair bilateral air entry, basal fine right sided crackles, expiratory fine wheezes Gastrointestinal: soft, lax, Normal bowel sounds, Non tender Skin : Warm, Dry Neurological : Alert & oriented x3, No focal deficit Objective Data Active Medications Acetaminophen (Acetaminophen 325 Mg Tablet) 650 mg PO Q6H PRN PRN Reason: Pain, Mild 1-3,fever,headache Albuterol Sulfate (Albuterol Sulfate (0.083%) 2.5 Mg/3 Ml Vial.Neb) 2.5 mg INHALE Q4H PRN PRN Reason: Shortness of Breath/Wheezing Last Admin: 03/31/24 08:27 Dose: 2.5 mg Documented By: JONI Benzonatate (Benzonatate 100 Mg Capsule) 100 mg PO TID [facility] Last Admin: 03/31/24 07:50 Dose: 100 mg Documented By: DAKSHA Calcium Carbonate (Calcium Carbonate 750 Mg Tab.Chew) 750 mg PO Q4H PRN PRN Reason: Heartburn Carbamazepine (Carbamazepine Er 200 Mg Tab.Er.12h) 400 mg PO BID [facility] Last Admin: 03/31/24 07:49 Dose: 400 mg Documented By: DAKSHA Ceftriaxone Sodium (Ceftriaxone Sodium 1 Gm Vial) 1 gm IVPUSH Q24H [facility] Enoxaparin Sodium (Enoxaparin Sodium 40 Mg/0.4 Ml Syringe) 40 mg SUBCUT Q24H [facility] Last Admin: 03/30/24 18:32 Dose: 40 mg Documented By: JUDI Guaifenesin/Dextromethorphan (Guaifenesin Dm 600/30 1 Tab Tab.Er.12h) 1 tab PO BID [facility] Last Admin: 03/31/24 10:53 Dose: 1 tab Documented By: DAKSHA Lactated Ringer's (Lr) 1,000 mls @ 100 mls/hr IVCONT .Q10H [facility] Last Admin: 03/31/24 05:23 Dose: 100 mls/hr Documented By: LEANNA Azithromycin 500 mg/ Sodium (Chloride) 250 mls @ 125 mls/hr IV Q24H [facility] Last Infusion: 03/30/24 20:32 Dose: Infused Documented By: JUDI Ibuprofen (Ibuprofen 400 Mg Tablet) 400 mg PO Q6H PRN PRN Reason: Fever or Pain, Mild (Pain Scale 1-3) Last Admin: 03/30/24 22:16 Dose: 400 mg Documented By: LEANNA Magnesium Hydroxide (Milk Of Magnesia 30 Ml Oral.Susp) 30 ml PO DAILY PRN PRN Reason: Constipation Melatonin (Melatonin 3 Mg Tablet) 6 mg PO BEDTIME PRN PRN Reason: Insomnia Ondansetron HCl (Ondansetron Hcl 4 Mg/2 Ml Vial) 4 mg IVPUSH Q8H PRN PRN Reason: Nausea and Vomiting Pregabalin (Pregabalin 150 Mg Capsule) 150 mg PO BID [facility] Last Admin: 03/31/24 07:49 Dose: 150 mg Documented By: DAKSHA Sodium Chloride (0.9 % Sodium Chloride Flush 3 Ml Syringe) 3 ml IVFLUSH QSHIFT [facility] Last Admin: 03/31/24 07:45 Dose: Not Given Documented By: DAKSHA Non-Admin Reason: IV Running Labs 03/31/24 05:46 03/31/24 05:46 Labs: Laboratory Results - last 24 hr 03/30/24 03/30/24 03/30/24 12:59 14:15 15:44 MCV 90.2 MCH 32.1 MCHC 35.6 H RDW 11.6 Plt Count 238 MPV 9.5 Immature Gran % (Auto) Cancelled Neut % (Auto) Cancelled Lymph % (Auto) Cancelled [place] % (Auto) Cancelled Eos % (Auto) Cancelled Baso % (Auto) Cancelled Lymph # (Auto) Cancelled [place] # (Auto) Cancelled Eos # (Auto) Cancelled Baso # (Auto) Cancelled Abs Immat Gran (auto) Cancelled Absolute Neuts (auto) Cancelled Absolute Nucleated RBC 0.000 Nucleated RBC % (auto) 0.0 Neutrophils % (Manual) 82 H Band Neutrophils % 15 H Lymphocytes % (Manual) 1 L Monocytes % (Manual) 2 Abs Neuts (Manual) 20.6 H Lymphocytes # (Manual) 0.2 L Monocytes # (Manual) 0.4 Platelet Estimate NORMAL Plt Morphology Comment NORMAL RBC Morphology NORMAL Smear Tech's Comments MANUAL DIFF Anion Gap 9 L Estim Creat Clear Calc 60.1 Estimated GFR > 60 Random Glucose 221 H Lactic Acid 2.5 H* 3.1 H* Lactic Acid F/U @ 2Hr Calcium 9.0 D Magnesium 1.6 Total Bilirubin 0.4 AST 23 ALT 19 Alkaline Phosphatase 92 Total Protein 6.5 Albumin 3.8 Urine Color Yellow Urine Appearance Clear Urine pH 7.5 Ur Specific [place] 1.020 Urine Protein 30 (1+) H Urine Glucose (UA) 500 H Urine Ketones Trace Urine Blood Negative Urine Nitrite Negative Ur Leukocyte Esterase Moderate (2+) H Urine RBC 0-2 Urine WBC 11-20 H Ur Squamous Epith Cells 6-10 Urine Bacteria 1+ Hyaline Casts 3-5 Influenza Type A (PCR) NEGATIVE Influenza Type B (PCR) NEGATIVE RSV RNA Qual (PCR) NEGATIVE SARS-CoV-2 RNA (RT-PCR) NEGATIVE 03/30/24 03/31/24 19:28 05:46 MCV 90.4 MCH 32.9 MCHC 36.5 H RDW 11.8 Plt Count 189 MPV 9.6 Immature Gran % (Auto) 1.6 H Neut % (Auto) 88.9 H Lymph % (Auto) 5.0 L [place] % (Auto) 4.2 Eos % (Auto) 0.1 Baso % (Auto) 0.2 Lymph # (Auto) 1.0 L [place] # (Auto) 0.8 Eos # (Auto) 0.0 Baso # (Auto) 0.0 Abs Immat Gran (auto) 0.31 H Absolute Neuts (auto) 17.1 H Absolute Nucleated RBC 0.000 Nucleated RBC % (auto) 0.0 Neutrophils % (Manual) Band Neutrophils % Lymphocytes % (Manual) Monocytes % (Manual) Abs Neuts (Manual) Lymphocytes # (Manual) Monocytes # (Manual) Platelet Estimate Plt Morphology Comment RBC Morphology Smear Tech's Comments Anion Gap 7 L Estim Creat Clear Calc 94.9 Estimated GFR > 60 Random Glucose 93 Lactic Acid Lactic Acid F/U @ 2Hr 0.8 Calcium 8.5 Magnesium Total Bilirubin AST ALT Alkaline Phosphatase Total Protein Albumin Urine Color Urine Appearance Urine pH Ur Specific [place] Urine Protein Urine Glucose (UA) Urine Ketones Urine Blood Urine Nitrite Ur Leukocyte Esterase Urine RBC Urine WBC Ur Squamous Epith Cells Urine Bacteria Hyaline Casts Influenza Type A (PCR) Influenza Type B (PCR) RSV RNA Qual (PCR) SARS-CoV-2 RNA (RT-PCR) Assessment and Plan (1) Sepsis: Status: Acute (2) Acute UTI: Status: Acute (3) Pneumonia: Status: Acute Plan A 68 years old lady with PMH of OA, HLD, Depression who presents to ED complaining of fever, fatigue, cough for the last 3 days. Sepsis 2/2 CAP with acute lactic acidosis CXR showing RUL infirtrate pending cultures continue Azithromycin and Ceftriaxone Cough medicine PRN Nebulizer will need CXR repeat to follow on the Opacity in 2 months or so UTI pending cultures on Ceftriaxone Hx Trigeminal neuralgia LYrica and Carbamazepine bid DVT PPx Lovenox The patient will need overnight hospital stay for treatment of sepsis pending final blood cultures while on IV antibiotics. Quality Stroke Does the patient have a stroke diagnosis?: No VTE Prior VTE?: No VTE Risk Level:: Medical - moderate - high VTE Device Contraindication: Treatment Not Indicated VTE Drug Contraindication: N/A - Med Ordered
[2024-03-31] MEDS: cefTRIAXone sodium 1 GM VIAL IVPUSH (13:11)
[2024-03-31] MEDS: Azithromycin 500 MG in 0.9 % Sodium Chloride 250 ML 125 MG IV (17:51)
[2024-03-31] MEDS: Enoxaparin Sodium 40 MG/0.4 ML SYRINGE SUBCUT (17:52)
[2024-03-31] MEDS: Throat Lozenge, Medicated LOZENGE 1 LOZENGE MUCOUS MEM (21:50)
[2024-03-31] MEDS: Ibuprofen 400 MG TABLET PO (21:51)
[2024-03-31] MEDS: 0.9 % Sodium Chloride Flush 3 ML SYRINGE IVFLUSH (21:54)
[2024-04-01] MEDS: Lactated Ringers 1,000 ML 100 ML IVCONT (00:14)
[2024-04-01 03:08] VITALS: BP 134/68; PULSE 65; RESP 16; TEMP 36; O2SAT 97
[2024-04-01 06:21] LABS: MANUAL DIFF FLAG NO
[2024-04-01 06:35] LABS: Basophils Percent Auto 0.2 % (0-2); Eosinophils Percent Auto 0.3 % (0-4); Hematocrit 28.6 % (37.0-47.0); Hemoglobin 10.5 g/dl (12.0-16.0); Imm Gran Abs Auto 0.07 X10*3/uL (0.00-0.03); Imm Gran Pct Auto 0.6 % (0.0-0.4); Lymphocytes Absolute Auto 0.9 X10*3/uL (1.2-4.9); Lymphocytes Percent Auto 8.1 % (20-40); Mean Corpuscular HGB Conc 36.7 g/dl (31.0-35.0); Mean Corpuscular Hemoglobin 32.8 pg (27.0-33.0); Mean Corpuscular Volume 89.4 fL (80.0-98.0); Monocytes Absolute Auto 0.6 X10*3/uL (0.1-1.2); Monocytes Percent Auto 5.1 % (2-11); Neutrophils Absolute Auto 9.6 x10*3/uL (2.0-8.3); Neutrophils Percent Auto 85.7 % (45-73); Platelet Count 162 X10*3/uL (160-400); Red Cell Distribution Width 11.7 % (11.0-16.0); White Blood Count 11.2 X10*3/uL (4.8-10.8)
[2024-04-01 06:51] LABS: Anion Gap 10 (12-20); Blood Urea Nitrogen 6 mg/dL (9-16); Calcium 8.5 mg/dL (8.4-10.2); Carbon Dioxide 26 mmol/L (22-29); Chloride 105 mmol/L (96-108); Creatinine Clr Calc Pharmacy 96.6; Estimated Glomerular Filt Rate > 60; Glucose Random 93 mg/dL (60-115); Potassium 3.5 mmol/L (3.3-5.1); Sodium 137 mmol/L (135-145)
[2024-04-01 07:50] VITALS: BP 118/58; PULSE 50; RESP 18; TEMP 37.1; O2SAT 98
[2024-04-01] MEDS: carBAMazepine ER 200 MG TAB.ER.12H 400 MG PO (09:00)
[2024-04-01] MEDS: guaiFENesin DM 600/30 1 TAB TAB.ER.12H PO (09:00)
[2024-04-01] MEDS: Benzonatate 100 MG CAPSULE PO (09:00)
[2024-04-01] MEDS: Pregabalin 150 MG CAPSULE PO (09:00)
[2024-04-01 11:28] VITALS: BP 114/55; PULSE 52; RESP 18; TEMP 37.6; O2SAT 96
--- NOTE | 2024-04-01 11:48 | PM.DS ---
DS: Providers Provider Date of Service: 04/01/24 Date of admission: 03/30/24 18:01 Date of discharge: 04/01/24 Primary care physician: Hermann Phillips MD DS: Diagnosis Discharge Diagnosis (1) Sepsis: Status: Acute (2) Acute UTI: Status: Acute (3) Pneumonia: Status: Acute DS: Summary Hospital Course Hospital Course: Admission note HPI A 68 years old lady with PMH of OA, HLD, Depression who presents to ED complaining of fever, fatigue, cough for the last 3 days. The patient reports that she started feeling wheezing in her chest starting few days ago that resolved on its own when she goes to sleep associated with increasing cough with mucus. Yesterday she felt really cold and started having rigors. this morning she could not hold up a cup that fell from her hand. No chest pain, palpitations, nausea, vomiting, diarrhea or urinary symptoms. In ED found to have elevated WBCs with bands, CXR concerning for pneumonia and UA showing possible UTI. Admitted for further evaluation and treatment. Hospital course The patient was admitted to the hospital for treatment of sepsis secondary to CAP with acute lactic acidosis. CXR showing RUL infirtrate. She was treated with IV Azithromycin and Ceftriaxone along with Cough medicine and PRN Nebulizer as blood cultures remained negative. She felt much better over the course of hospital stay and was able to ambulate on room air with no reported dyspnea or shortness of breath. She will be discharged on Ceftin and Azithromycin to finish total of 10 days of antibiotics. urine culture remained negative as well. She will need CXR repeat to follow on the Opacity in 2 months or so to check for clearance. Discharge plan Continue Antibiotics as prescribed Cough medicine as needed Come back to ER with any worsening shortness of breath, fever or chest pain Time Attestation Discharge Coordination Time (in mins): 38 Quality: Safe Use of Opioids Does Pt have an Active Cancer Diagnosis on the Problem List?: No Quality: Stroke Does the patient have a stroke diagnosis?: No Physical Exam Vital Signs: Vital Signs: Last Vital Signs Temp 99.7 F 04/01/24 11:28 Pulse 52 04/01/24 11:28 Resp 18 04/01/24 11:28 BP 114/55 L 04/01/24 11:28 Pulse Ox 96 04/01/24 11:28 O2 Del Method Room Air 04/01/24 11:28 BMI result Body Mass Index 25.5 Const: Other: Constitutional : Awake, interactive, not in distress Neck : Normal inspection, Supple Cardiovascular : RRR, no JVP, no lower extremity edema Respiratory : fair bilateral air entry, basal fine right sided crackles, no wheezes Gastrointestinal: soft, lax, Normal bowel sounds, Non tender Skin : Warm, Dry Neurological : Alert & oriented x3, No focal deficit DS: Data Data Completed and Pending Labs on day of discharge: Laboratory Results - last 24 hr 04/01/24 05:12 WBC 11.2 H RBC 3.20 L Hgb 10.5 L Hct 28.6 L MCV 89.4 MCH 32.8 MCHC 36.7 H RDW 11.7 Plt Count 162 MPV 10.0 Immature Gran % (Auto) 0.6 H Neut % (Auto) 85.7 H Lymph % (Auto) 8.1 L [place] % (Auto) 5.1 Eos % (Auto) 0.3 Baso % (Auto) 0.2 Lymph # (Auto) 0.9 L [place] # (Auto) 0.6 Eos # (Auto) 0.0 Baso # (Auto) 0.0 Abs Immat Gran (auto) 0.07 H Absolute Neuts (auto) 9.6 H Absolute Nucleated RBC 0.000 Nucleated RBC % (auto) 0.0 Sodium 137 Potassium 3.5 Chloride 105 Carbon Dioxide 26 Anion Gap 10 L BUN 6 L Creatinine 0.56 Estim Creat Clear Calc 96.6 Estimated GFR > 60 Random Glucose 93 Calcium 8.5 Preliminary micro results at discharge 03/30/24 14:14 Blood Culture - Preliminary Blood - Venous No growth after 24 hours. 03/30/24 14:14 Blood Culture - Preliminary Blood - Venous No growth after 24 hours. Imaging Chest x-ray: Radiologist's impression: Impression: Opacity in the right upper lobe may indicate pneumonia. Follow up to resolution. This document has been electronically signed by: Radha Crenshaw MD on 03/30/2024 13:31:00 Discharge Plan Discharge Anticipated Discharge Date/Time: 04/01/24 11:42 Patient Disposition: Home, Self-Care Discharge Diagnosis: Pneumonia Referrals: Hermann Phillips MD [Primary Care Provider] - 1 Week Discharge Medications: New benzonatate 100 mg Capsule 100 mg PO TID PRN (Reason: cough) Qty: 20 0RF azithromycin 500 mg tablet 500 mg PO DAILY 7 Days Qty: 7 0RF cefuroxime axetil 500 mg tablet 500 mg PO BID Qty: 14 0RF [place]DME[place] [facility] [place] .Route Qty: 1 0RF Rx Instructions: As directed pregabalin 150 mg capsule 150 mg PO BID 30 Days Qty: 60 0RF multivitamin Tablet 1 tab PO DAILY carbamazepine 400 mg tablet extended release 12 hr 400 mg PO BID cholecalciferol (vitamin D3) 50 mcg (2,000 unit) Tablet 50 mcg PO DAILY naproxen 500 mg tablet 500 mg PO BID PRN (Reason: pain) 14 Days Qty: 28 0RF Rx Instructions: Take with food ONLY as needed for pain Discharge Orders: Discharge Order (Routine); Ordered 04/01/24 Ordered By: Ash Wilburn Diet: Advance to usual diet Activity on Discharge: As tolerated Stand Alone Forms: Patient Portal Discharge page Print Language: Emirati Care Plan Goals: You were admitted to the hospital for treatment of sepsis secondary to pneumonia as shown on your chest images. Treated with IV Azithromycin and Ceftriaxone with good response over the course of hospital stay as you felt better, breathing improved and blood cultures remained negative. Continue Antibiotics as prescribed Cough medicine as needed Come back to ER with any worsening shortness of breath, fever or chest pain will need CXR repeat to follow on the Opacity in 2 months or so to check for clearance Health Concerns: Pneumonia Plan of Treatment: Antibiotics Assessment: as above
--- NOTE | 2024-04-01 12:00 | MHC.CM.PN ---
Patient medically cleared for dc home self care. Friend will provide transport - patient is unsure what time friend is coming. Appropriate for dc lounge. RN aware.
== END 2024-04-01 12:33 | disposition home or self-care (01) | DRG 871 ==
LOC: HO.ED 16:32 → HO.EDOVER 19:17 → HO.S3 19:39
PROVIDERS: Physician Assistant Medical; Admitting Provider Student in an Organized Health Care Education/Training Program; Emergency Provider Emergency Medicine; PCP Internal Medicine; Visit Provider Student in an Organized Health Care Education/Training Program
DX: A41.9 Sepsis, unspecified organism (principal); J18.9 Pneumonia, unspecified organism; E87.21 Acute metabolic acidosis; N39.0 Urinary tract infection, site not specified; G50.0 Trigeminal neuralgia; E78.5 Hyperlipidemia, unspecified; Z20.822 Contact with and (suspected) exposure to COVID-19; Z79.899 Other long term (current) drug therapy
CPT/HCPCS: 0241U; 36415; 71046; 80048; 80053; 81001; 83605; 83735; 85007; 85025; 85027; 87040; 87086; 94640; 99212; 99285; J0456; J0696; J1650; J7120

== ENCOUNTER → 2024-03-30 12:28 | Outpatient (BNV) | payer MEDICARE, SELFPAY | PROVIDERS: PCP Internal Medicine; Visit Provider Radiology Diagnostic Radiology | DX: R05.9 Cough, unspecified (principal); R06.02 Shortness of breath | CPT/HCPCS: 71046 ==

== ENCOUNTER → 2024-03-30 12:52 | Outpatient (BNV) | payer MEDICARE, SELFPAY | PROVIDERS: Emergency Provider Emergency Medicine; PCP Internal Medicine; Visit Provider Student in an Organized Health Care Education/Training Program | DX: A41.9 Sepsis, unspecified organism (principal); N39.0 Urinary tract infection, site not specified; J18.9 Pneumonia, unspecified organism | CPT/HCPCS: 99223 ==

== ENCOUNTER 2024-04-04 13:34 | Outpatient (AMB) | payer MEDICARE, SELFPAY ==
--- NOTE | 2024-04-04 11:10 | A.OFFPC_ITS ---
Vital Signs 04/04/24 13:47 Height 5 ft 5 in Weight 155 lb 6 oz BMI 25.9 BP 122/70 Blood Pressure Location Lt brachial Position Sitting Pulse 56 Pulse Source Pulse Oximeter Temp 96.9 F Temp Source Skin Pulse Oximetry (%) 95 Oxygen Delivery Method Room Air Intake Visit Reasons: [facility] Fever/Cough 04/01 Intake Note: Patient is here for hospital discharge and TCM follow up. Patient was discharged from [facility] on 04/01/24. Probate Judge Required: No Territory Service Representative: Not Required per policy Accompanied by: Self / Same As Patient Allergies cephalexine Adverse Reaction (Intermediate, Uncoded 04/04/24 14:28) eye swelling Medication List - Last Reconciled 04/04/24 by SASCHA Alberto azithromycin 500 mg PO DAILY 7 days benzonatate 100 mg PO TID PRN carbamazepine ER 400 mg PO BID cefuroxime axetil 500 mg PO BID cholecalciferol (vitamin D3) 50 mcg PO DAILY Grab bar As directed multivitamin 1 tab PO DAILY naproxen 500 mg PO BID PRN 14 days pregabalin 150 mg PO BID 30 days Tobacco use date assessed: 04/04/24 Fall risk assessment: No Falls in past year Last assessed Fall Risk: 04/04/24 Dental Screening Dental Screen Date: 04/04/24 Did you have a dental visit in the last 12 months?: Yes Did you have a dental problem in the last 6 months where you did not have access to dental care?: No Was dental information given to patient?: Patient has dentist HPI [facility] Fever/Cough 04/01 HPI Details The patient is a 68 year old female with of OA, HLD, depression, hearign impairment, Trigeminal neuralgia of the left side of face. The patient of Dr. Phillips, last seen in the office 02/01/14 for an annual physical The patient is presenting today for post-hospital stay for pneumonia/uti and early signs of sepsis. Chart review: Patient went into the walk-in clinic on 03/30/2024 for 2 days of cough, chest tightness, chills, tremor and increased fatigue to the point of urinary incontinence this is a patient was unable to get out of bed. Due to the patient presentation the patient was recommended to go to the ED. Hospital discharge summary: The patient went to the ED on 03/30/2024-she presented with complaints of fever, fatigue and cough for the last 3 days. In addition, the patient reports wheezing in her chest few days ago that resolved on its own when she goes to sleep associated with increased cough with mucus. The day before she felt cold and started having rigors. This morning she could not hold up a cup that fell from her hand. In the ED was found to have elevated WBCs with bands, chest x-ray concerning for pneumonia and UA showing possible UTI. As a result, the patient was admitted for treatment of sepsis secondary to CAP with acute lactic acidosis. CXR shoulder right upper lobe infiltrate. She was treated with IV azithromycin and ceftriaxone along with cough medicine and p.r.n. nebulizer as blood cultures remains negative. The patient felt better after the course of hospital stay and was able to ambulate on room air with reported dyspnea or shortness of Breath. She was discharged on Ceftin and azithromycin to finish total of 10 days of antibiotics. Urine culture remained negative as well She was recommended to have CXR repeat in 2 months to check for opacity clearance -reports that she has about 4 days left of the abt tx. She denies any side effect from the abt-she is feeling good. She denies SOB, chest pain, heart palpitation, and dizziness The patient reports that she was referred [facility], Dr. Ness for pulsatile tinnitus in left ear. She was unclear on who referred her. She had an MRA done in february that showed bilateraal cavernous ICA aneurysms, approimately 4 mm on the left and 3 mm on the right. She was referred to Neuro-Interventional. She has an appt with Dr. Jacome on 05/02/24. TCM TCM Information Date of Discharge 04/01/24 Discharged From [facility] Interactive Contact Date (Reference documentation from this date) 04/02/24 COUNTS INCLUDE 234 BEDS AT THE [facility] Medical History Pain in right knee Hearing impairment Allergic rhinitis Depression Trigeminal neuralgia of left side of face Surgical History History of cranioplasty History of ear surgery History of nasal septoplasty Family History Father No problems noted. Mother No problems noted. 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 1. Little interest or pleasure in doing things: not at all 2. Feeling down, depressed, or hopeless: not at all 3. Trouble falling or staying asleep, or sleeping too much: not at all 4. Feeling tired or having little energy: not at all 5. Poor appetite or overeating: not at all 6. Feeling bad about yourself - or that you are a failure or have let yourself or your family down: not at all 7. Trouble concentrating on things, such as reading the newspaper or watching television: not at all 8. Moving or speaking so slowly that other people could have noticed. Or the opposite - being so fidgety or restless that you have been moving around a lot more than usual: not at all 9. Thoughts that you would be better off or of hurting yourself in some way: not at all Total score: 0 Depression Screening Interpretation: Negative Depression Screening Done: Yes 96246 - PHQ-9 Billing: Yes Source: Developed by Drs. Favio Sawyer, Jesi Chauhan, Juan Jose Vega and colleagues, with an educational naveen from [employer]. Thrive Questionnaire Date Thrive assessed: 04/04/24 I am a: Patient What is your living situation today?: I have a steady place to live Within the past 12 months, did the food you bought not last and you didn't have the money to get more?: Never true Within the past 12 months, did you worry whether your food would run out before you got money to buy more?: Never true Do you have trouble paying for medicines?: No Do you have trouble getting transportation to medical appointments?: No Do you have trouble paying your heating and electricity bill?: No Do you have trouble taking care of your child, family member or friend?: No Do you have trouble with day-to-day activities such as bathing, preparing meals, shopping, managing finances, etc.?: No Are you currently unemployed and looking for a job?: No Are you interested in more education?: I choose not to answer this question Please select the resources that you would like help with: None Currently or been in a relationship where the following occur: No concerns reported THRIVE Score: 0 AUDIT C Alcohol Use Questionnaire (AUDIT-C) 1. How often do you have a drink containing alcohol?: Never Total Score: 0 Score Reviewed/Action Taken: Yes BRITTANY-7 AMB Questionnaire BRITTANY-7 Date BRITTANY - 7 assessed: 04/04/24 Feeling nervous, anxious, or on edge: 0 = Not at all Not being able to stop or control worryin = Not at all Worrying too much about different things: 0 = Not at all Trouble relaxin = Not at all Being so restless that it is hard to sit still: 0 = Not at all Becoming easily annoyed or irritable: 0 = Not at all Feeling afraid as if something awful might happen: 0 = Not at all Total BRITTANY-7 score (0-4 normal; 5-9 mild; 10-14 moderate; 15-21 severe): 0 Source: Developed by Drs. Favio Sawyer, Jesi Chauhan, Juan Jose Vega and colleagues, with an educational naveen from [employer]. BRITTANY-7 Assessment Billing BRITTANY-7 Assessment Tool: BRITTANY-7 Assessment 59780 Review of Systems Const Details: Denies chills, Denies fatigue, Denies fever(s), Denies headache(s) and Denies weakness HEENT other: left ear tinnitus correlating with heart beat Denies change in vision, Denies dizziness, Denies headache(s), Denies hearing loss, Denies nasal congestion, Denies sinus pain, Denies sinus pressure and Denies sore throat Card Denies chest pain, Denies lightheadedness, Denies dyspnea and Denies other (palpitations) Resp Denies cough, Denies dyspnea and Denies wheezing GI Denies abdominal pain, Denies melena, Denies hematochezia, Denies change in bowel habits, Denies dyspepsia and Denies nausea Denies hematuria and Denies dysuria Musc Denies abnormal gait, Denies myalgias, Denies arthralgias, Denies numbness and Denies tingling Skin/Breast Denies rash, Denies unusual bruising and Denies wounds Neuro Denies abnormal gait, Denies dizziness, Denies headache(s), Denies memory loss, Denies numbness, Denies Sensory deficit (Neuro), Denies tingling and Denies weakness Psych Denies anxiety, Denies depression and Denies memory loss Endo Denies cold intolerance, Denies fatigue, Denies heat intolerance, Denies polydipsia and Denies polyuria Alo/Lymph Denies easy bleeding and Denies easy bruising Aller/Immun Denies wheezing Physical exam (Primary Care) Vital Signs: Last Vital Signs Temp 96.9 F 04/04/24 13:47 Pulse 56 04/04/24 13:47 BP 122/70 04/04/24 13:47 Pulse Ox 95 04/04/24 13:47 Oxygen Delivery Method Room Air 04/04/24 13:47 BMI result Body Mass Index 25.9 Tobacco/Smoking Status: Tobacco use Status Tobacco use date assessed 04/04/24 04/04/24 13:56 Patient Tobacco Use Status Never used Tobacco 04/04/24 11:10 e-Cigarette/Vaping Use Never Used 04/04/24 11:10 PHQ-9: PHQ-9 Score PHQ-9: Total score 0 04/04/24 22:47 Depression Screening Interpretation: Negative Thrive Assessment: Date of Thrive Assessment Date Thrive assessed 04/04/24 04/04/24 13:35 Currently or been in a relationship where the following occur: No concerns reported Const Other: General: no acute distress, well developed, alert and awake Nutritional Appearance: well nourished Orientation/consciousness: patient oriented x3 HENMT Head: Yes normocephalic and Yes atraumatic Ears: hearing grossly normal bilaterally and TM's normal bilaterally General nose exam: Normal external nose present and Normal nares present Mouth: Normal oral and palatal mucosa present and moist mucous membranes Teeth and gingiva: dentition normal Throat: Yes oropharynx normal Eyes Pupils: Equal, round and reactive pupils present and Pupil accommodation reflex normal EOM: EOMs intact bilaterally Neck Neck: Yes normal visual inspection, Yes no lymphadenopathy and Yes trachea midline Thyroid: Thyroid normal Carotids: no bruits Lymphatic: no lymphadenopathy noted Chest Chest palpation & inspection: normal inspection of the chest Resp Effort & Inspection: normal respiratory effort Auscultation: clear to auscultation bilaterally Cardio Rate: regular rate Rhythm: regular rhythm Heart sounds: S1 normal heart sound present, S2 normal heart sound present, no gallops, no murmurs and no rubs Bruits: no abdominal aortic bruits and no carotid bruits GI Palpation (GI): No Abdominal aortic bruit present, Soft to palpation, nontender, No hepatosplenomegaly present and No Rebound tenderness present Auscultation: normal bowel sounds General: Yes no CVA tenderness Back/Spine/Pelvis Back: no CVA tenderness Cervical Spine: cervical ROM normal and No Cervical spine tenderness Thoracic/Lumbar Spine: thoraco-lumbar ROM normal, No pain with thoraco-lumbar ROM, No thoracic spinal tenderness and No lumbar spinal tenderness Skin General: warm and dry. Normal skin color. Normal skin turgor Lesions: no lesions Rashes: no rashes Trauma: no lacerations or abrasions Wounds: no wounds Nails: normal Neuro General: patient oriented x3, gait normal Cranial nerves: Yes Equal, round and reactive pupils present Cognition (Neuro): normal cognition Gait exam (Neuro): Normal gait present Extrem General: Yes normal to inspection, No edema and No calf tenderness Psych Appearance: grossly normal Affect: normal affect Attitude: cooperative Thought process: Normal thought process present Coding Level of Care Code TCM Mod MDM <= 7 Days Diagnoses Sepsis, due to unspecified organism, unspecified whether acute organ dysfunction present A41.9 Sepsis acute organ dysfunction status: unspecified Sepsis type: sepsis due to unspecified organism Pneumonia of right upper lobe due to infectious organism J18.9 Laterality: right Lung location: upper lobe of lung Pneumonia type: due to unspecified organism Acute UTI N39.0 Trigeminal neuralgia of left side of face G50.0 Aneurysm of carotid artery I72.0 Pulsatile tinnitus of left ear H93.A2 Additional Codes BRITTANY-7 Assessment Billing - BRITTANY-7 Assessment Tool: BRITTANY-7 Assessment 44278 ([id number]) PHQ-9 - 14233 - PHQ-9 Billing: Yes ([id number]) Time Spent (min) 42 Assessment & Plan Assessment & Plan (1) Sepsis: Code(s): A41.9 - Sepsis, unspecified organism Category: Medical Qualifiers: Sepsis acute organ dysfunction status: unspecified Sepsis type: sepsis due to unspecified organism Qualified Code(s): A41.9 - Sepsis, unspecified organism Plan: The patient was admitted with early signs of sepsis related to community- acquired pneumonia /UTI She was treated with IV antibiotics and IV fluids with good effect Patient was transitioned to p.o. antibiotics and continues to do well (2) Pneumonia: Code(s): J18.9 - Pneumonia, unspecified organism Category: Medical Qualifiers: Laterality: right Lung location: upper lobe of lung Pneumonia type: due to unspecified organism Qualified Code(s): J18.9 - Pneumonia, unspecified organism Plan: Right upper lobe pneumonia treated with IV antibiotics in the hospital Was discharged on p.o. antibiotics: Reports having 4 days left of p.o. antibiotics to take She is asymptomatic and denies any side effects Will order a follow up chest x-ray in 2 months (3) Acute UTI: Code(s): N39.0 - Urinary tract infection, site not specified Category: Medical Plan: The patient was treated with IV antibiotics and fluids in the hospital and was transitioned to po abt tv She is denying any urinary symptoms Encourage fluids (4) Trigeminal neuralgia of left side of face: Comment: S/P left Jannetta procedure CN V with methylmethacrylate cranioplasty (Dr. Alisa Pro) on 07/22/2019 Code(s): G50.0 - Trigeminal neuralgia Category: Medical Plan: Continue carbamazepine 400 mg b.i.d., pregabalin 150 mg b.i.d. The patient is currently waiting to get an appointment with Dr. Gastelum in Neurology Reports that she was seeing Dr. Ott who she reports retired Her pain as been stable (5) Aneurysm of carotid artery: Code(s): I72.0 - Aneurysm of carotid artery Category: Medical Plan: The patient has an appt with Dr. Jacome on 05/02/24 (neuro interventional radiologist). She was reffered by Dr. Ness (ENT) --The patient had a MRI of brain+internal auditory canal w/wo contrast on 02/20/24. She also had an MRA on 03/06/24 due to bilateral tinnitus-It was noted that the patient had bilateral cavernous ICA aneurysms, approx 4 mm on the left and 3 mm on the right. No evidence of intracranial venous thrombosis. Dominant right transverse and sigmoid sinuses. (6) Pulsatile tinnitus of left ear: Code(s): H93.A2 - Pulsatile tinnitus, left ear Category: Medical Plan: Reports a sound correlated with her heart beat in her left ear. The patient was seen by an ENT. Dr. Ness who did a MRA/MRI: result showed bilateral ICA aneurysm-and she was referred to neuro-interventional radiologist Dr. Jacome, with who she had an upcoming appt. Plan Follow up with PCP in 4 months Orders: Orders XR chest 2V 2 Months J18.9 - Pneumonia, unspecified organism
[2024-04-04 13:47] VITALS: BP 122/70; PULSE 56; TEMP 36.1; O2SAT 95; BMI 25.9
== END 2024-04-04 14:43 | disposition home or self-care (01) ==
PROVIDERS: PCP Internal Medicine
DX: I72.0 Aneurysm of carotid artery (principal); A41.9 Sepsis, unspecified organism; J18.9 Pneumonia, unspecified organism; N39.0 Urinary tract infection, site not specified; G50.0 Trigeminal neuralgia; H93.A2 Pulsatile tinnitus, left ear

== ENCOUNTER → 2024-04-04 13:34 | Outpatient (BNVA) | payer MEDICARE, SELFPAY | PROVIDERS: PCP Internal Medicine | DX: A41.9 Sepsis, unspecified organism (principal); J18.9 Pneumonia, unspecified organism | CPT/HCPCS: 96127; 99495 ==

== ENCOUNTER 2024-06-18 13:23 | Outpatient (AMB) | payer MEDICARE, SELFPAY ==
--- NOTE | 2024-06-18 13:26 | A.OFFVIS_ITS ---
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 She is doing well with no executive chef assistant concerns. Currently not sexually active. Denies any vaginal dryness or irritation. STI testing offered; she declines. Attempting to eat a healthy diet with calcium and vitamin D and stays active with exercise-walking. Last pap smear; 2022. Normal pap history. Last mammogram; 2024. Colonoscopy is UTD. Denies any family history of breast, ovarian or colon cancer. [facility] Medical History Pain in right knee Hearing impairment Allergic rhinitis Depression Trigeminal neuralgia of left side of face Surgical History History of cranioplasty History of ear surgery History of nasal septoplasty Family History Father No problems noted. Mother No problems noted. 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 Cognitive needs: No Hearing needs: No Vision needs: Yes Female Reproductive History Menstrual Total pregnancies: 4 Full term: 4 Number of Living Children: 4 Date of last pap smear: 02/07/23 (neg) Date of Mammogram: 03/21/24 (Birad 1) Date of last Bone Density Screenin03/21/24 Review of Systems Const All systems reviewed & are unremarkable except as noted in HPI and below Reports as per HPI Eyes Reports no additional complaints ENT Reports no additional complaints Card Reports no additional complaints Resp Reports no additional complaints GI Reports as per HPI and Reports no additional complaints Reports as per HPI Musc Reports no additional complaints Skin/Breast Reports as per HPI Neuro Reports no additional complaints Psych Reports no additional complaints Endo Reports no additional complaints Alo/Lymph Reports no additional complaints Aller/Immun Reports no additional complaints Physical Exam Vital Signs: Last Vital Signs BP 120/72 06/18/24 13:27 BMI result Body Mass Index 25.3 Const General: cooperative, healthy appearing, no acute distress, well developed and alert Orientation/consciousness: patient oriented x3 HEENT Head: Yes normal to inspection Eyes General: appearance normal, both eyes and all related structures Neck Neck: Yes normal visual inspection Thyroid: Thyroid normal Chest Other: left breast mass at 9:00, 3 cm, smooth, rubbery, mobile Chest palpation & inspection: normal inspection of the chest and other (no puckering, dimpling, peau de orange, retraction, discharge, masses) Breast/axilla inspection: normal inspection of the breasts Breast/axilla palpation: normal palpation of the breasts Resp Effort & Inspection: normal respiratory effort GI Inspection: Yes normal to inspection Palpation (GI): Soft to palpation Rectal Exam - Female: deferred General: Yes bladder normal to palpation External Female Exam: normal external appearance and normal appearance of the urethra Speculum Exam - Vagina: normal appearance of the vagina, normal palpation, normal vaginal discharge and vagina atrophic Speculum Exam - Cervix: normal appearance of the cervix and normal palpation Bimanual exam- vagina & uterus: normal bimanual exam, normal palpation, uterine size normal, bladder normal to palpation, normal palpation and non-tender Bimanual Exam- Adnexa, other: no masses Skin General skin exam: no rashes or lesions noted Rashes: no rashes Neuro General: patient oriented x3 Cognition (Neuro): normal cognition Extrem General: Yes normal to inspection Psych Attitude: cooperative Thought process: Normal thought process present Assessment & Plan Assessment & Plan (1) Encounter for well woman exam with routine gynecological exam: Code(s): Z01.419 - Encounter for gynecological examination (general) (routine) without abnormal findings Category: Medical Plan: Discussed: Current recommendations for pap smears per ASCCP guidelines. Breast awareness, periodic self breast exams and yearly mammogram. Maintain a healthy lifestyle, well balanced diet including Calcium 1,200 mg and Vitamin D 600 IU daily, and routine exercise. Contact the office with any postmenopausal bleeding. Patient verbalizes understanding and agrees to the plan of care. She was given opportunity to ask questions and all questions were answered to the best of my ability. RTO in 1 year for annual executive chef assistant exam. This note is constructed using voice recognition software. While every effort has been made to ensure accuracy, hat sizer errors may have been included. (2) Left breast mass: Code(s): N63.20 - Unspecified lump in the left breast, unspecified quadrant Category: Medical Qualifiers: Breast mass location: unspecified quadrant Qualified Code(s): N63.20 - Unspecified lump in the left breast, unspecified quadrant Plan Plan diagnostic mammogram and left breast ultrasound. Follow up pending results to include possible surgical consult and biopsy if indicated. The patient expressed understanding and agreement with the plan of care. All of her questions and concerns were addressed to the best of my ability. Total time I personally spent on visit and management today: ?10 minutes. Time spent included review of pertinent office notes in the electronic health record; review of laboratory and imaging results; review of personal family medical history; performing physical exam; discussing diagnosis and plan of care with the patient; documenting the encounter in the EMR. Orders: Orders US breast LT limited Today N63.20 - Unspecified lump in the left breast, unspecified quadrant MM tomosynthesis diag imp BI Today N63.20 - Unspecified lump in the left breast, unspecified quadrant, Z12.31 - Encounter for screening mammogram for malignant neoplasm of breast Coding Level of Care Code New Pt Level 2 (07827) New Pt Prev Care >65yr (65162) Diagnoses Encounter for well woman exam with routine gynecological exam Z01.419 Mass of left breast, unspecified quadrant N63.20 Breast mass location: unspecified quadrant
[2024-06-18 13:27] VITALS: BP 120/72; BMI 25.3
--- OUTSIDE RECORDS SUMMARY | 2024-06-18 15:47 | XMS_ITS | Clinical Summary ---
Author Organization [facility] Address [id number] [place] [phone] Care Team Providers Care Warehouse Worker Name Role Phone Hermann Phillips MD Primary Care Provider Social History Tobacco Use Types Packs/Day Years Used Date Smoking Tobacco: Never Assessed Comments Unknown Sex and Gender Information Value Date Recorded Sex Assigned at Not on file Legal Sex Female 2:01 AM EST Gender Identity Not on file Sexual Orientation Not on file Plan of Treatment Health Maintenance Due Date Last Done Comments Breast Cancer Screening 1955 DTaP,Tdap,and Td Vaccines (1 - Tdap) 1976 Pneumococcal Vaccine: 50+ Ye ars (1 of 1 - PCV) 05/19/2007 Zoster Vaccines (1 of 2) 05/19/2007 Colorectal Cancer Screening: Colonoscopy 02/20/2022 Depression Screening 02/20/2022 Hepatitis C Screening 02/20/2022 Osteoporosis Screening (Bone Density Screening) 02/20/2022 Social Influencers of Health Screening 02/20/2022 Falls Risk Assessment 2022 COVID-19 Vaccine ( - 2023-2 5 season) 2023 Influenza Vaccine (#1) 2023 RSV Immunization Patients 60 + Years Old (1 - 1-dose 75+ series) 2032 HIB Vaccines Aged Out No longer eligi ble based on patient's age to complete this topic HPV Vaccines Aged Out No longer eligi ble based on patient's age to complete this topic Hepatitis A Vaccines Aged Out No long er eligible based on patient's age to complete this topic Hepatitis B Vaccines Aged Out No long er eligible based on patient's age to complete this topic IPV Vaccines Aged Out No longer eligi ble based on patient's age to complete this topic MMR Vaccines Aged Out No longer eligi ble based on patient's age to complete this topic Meningococcal ACWY Vaccine Aged Out N o longer eligible based on patient's age to complete this topic Meningococcal B Vacine Aged Out No lo nger eligible based on patient's age to complete this topic RSV Immunization Patients Un roger 20 months Aged Out No longer eligible b ased on patient's age to complete this topic Varicella Vaccines Aged Out No longer eligible based on patient's age to complete this topic Care Teams Warehouse Worker Relationship Specialty Start Date End Date Hermann Phillips MD [address] [place] [address] Dr [address] [place], [place] PCP - General Internal Medicine 04/03/19
== END 2024-06-18 14:15 | disposition home or self-care (01) ==
LOC: HO.HWS 13:24
PROVIDERS: PCP Internal Medicine; Visit Provider Advanced Practice Midwife
DX: Z01.419 Encounter for gynecological examination (general) (routine) without abnormal findings (principal); N63.20 Unspecified lump in the left breast, unspecified quadrant
CPT/HCPCS: 99213; 99387; 99459

== ENCOUNTER → 2024-06-18 13:23 | Outpatient (BNVA) | payer MEDICARE, SELFPAY | PROVIDERS: PCP Internal Medicine; Visit Provider Advanced Practice Midwife | DX: Z01.419 Encounter for gynecological examination (general) (routine) without abnormal findings (principal); N63.25 Unspecified lump in the left breast, overlapping quadrants | CPT/HCPCS: 99212; 99387; 99459 ==

== ENCOUNTER 2024-07-18 13:29 | Outpatient (REF) | payer MEDICARE, SELFPAY ==
--- NOTE | ~2024-07-18 | CT_ITS ---
CLINICAL HISTORY: CEREBRAL ANEURYSM CT head without contrast and CTA head with contrast Comparison: None available. Previous outside facility imaging is unavailable for review. Findings: CT head without contrast: No acute intracranial hemorrhage. No midline shift or hydrocephalus. Mild white matter lesions likely due to small-vessel ischemic disease. Mild/minimal volume loss is generalized. Mild mucosal thickening of the paranasal sinuses. Mild nasal bone irregularities are old/chronic. Small right mastoid effusion. No acute skull fracture. CTA head: 1 x 2 x 1 mm laterally directed aneurysm from left A2 segment demonstrates neck to dome ratio of the 1:1 with incorporation of the left A2 (image 105 of series 9). Vascular calcifications including bilateral carotid siphons with mild stenosis. No ICA or M1 occlusion. Left A1 segment is diminutive. Anterior communicating artery is patent and tortuous with small accessory A2 branch. Variant peripheral MARK branching pattern also noted. Imaged left vertebral artery is dominant. The basilar artery is patent. origin of the left BUCKET OPERATOR. Tortuous and variant origin of right P1 segment. No saccular proximal intracranial arterial aneurysm. Tortuosity of the multiple vessels, including small-vessel Z of the IAC's. Multifocal stenosis versus basal constriction and/or basal spasm including peripheral anterior division of the right MCA IMPRESSION: CT head without contrast: No acute intracranial abnormality by CT. CTA head: 1. No ICA or M1 occlusion. 2. Variant multi-vessel branching, with origin of the left BUCKET OPERATOR. 3. The basilar artery is patent. 4. Tortuosity of the anterior communicating artery is noted with small accessory MARK branch. 5. Multifocal stenosis versus vaso-spasm, including anterior division of the right MCA, by 1 phase CTA. 6. 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
[2024-07-18] MEDS: iohexoL 350 MG/ML 100 ML INFUS..BTL IV (14:02)
--- OUTSIDE RECORDS SUMMARY | 2024-07-18 15:50 | XMS_ITS | Clinical Summary ---
Author Organization [facility] Address [address] [place] [id number] Care Team Providers Care Equipment Washer Name Role Phone Hermann Phillips MD Primary [...] 02/20/2022 Falls Risk Assessment 2022 COVID-19 Vaccine (2023-2 5 season) 2023 Influenza Vaccine (Season Ended) 2024 RSV Immunization Adult Patie nts (1 - 1-dose 75+ series) 2032 HIB [...] age to complete this topic Meningococcal B Vaccine Aged Out No l onger eligible based on patient's age to complete this topic RSV Immunization Patients Un roger 20 months Aged Out No longer eligible b ased on patient's age to complete this topic Varicella Vaccines Aged Out No longer eligible based on patient's age to complete this topic Care Teams Equipment Washer Relationship Specialty Start Date End Date Hermann Phillips MD [address] [place] [address] [address] [place], [place] PCP - General Internal Medicine 04/03/19
--- OUTSIDE RECORDS SUMMARY | 2024-07-18 15:50 | XMS_ITS | Data Portability ---
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 Otologic exam unremarkable. Audiometric testing demonstrates bilateral, symmetric, neurosensory hearing loss. Although her speech recognition was excellent today, patient does not feel this represents her hearing ability in real-world situations and would like to pursue binaural amplification; benefits reviewed and patient understands. Copy of audiogram provided to patient along with a medical clearance form and a list of providers who accept their insurance. Recommend annual audiometric testing, sooner with perceived change in hearing. All questions were answered. Patient also reports left pulsatile tinnitus for past few months. No audible bruits on exam. Recommend MRI of brain and IACs and MRA of the head with venogram protocol; patient will be called with results. If negative, will proceed to MRA neck with and without contrast and CT temporal bones. [email or web address] Not available 01/31/2024 16:29:39 Plan of Treatment Reminders Order Date Submit Date Provider Last Modified By Organization Details Last Modified Time Details Appointments None recorded. Lab None recorded. Referral None recorded. Procedures None recorded. Surgeries None recorded. Imaging MRI, brain + internal auditory canal, w/wo contrast - MRI, BRAIN + INTERNAL AUDITORY CANAL, W/WO CONTRAST pulsatile tinnitus left ear 2023 024 [facility] ([facility] [address] [place], [address], 4 17:21:40 MR, angiogram, head, w/o contrast - pulsatile tinnitus 2023 024 [email or web address] [facility] ([facility]), [address] [place], [address], 15:06:25 Medication Orders None recorded. Patient TargetsNo targets recorded. Patient InstructionsNo instructions recorded. Reason for Referral None Reported. Results Created Date Observation Date Name Description Value Unit Range Abnormal Flag Note LastModifiedBy Organization Detail LastModifiedTime 02/01/20 audio gram No observ ation record ed. BARCODE Not Available 2023 10:43:31 02/01/2001/19/2023 audio gram No observ ation record ed. [email or web address] [facility] [address], [address], 02/02/2024 09:13:20 02/22/20 24 02/20/2024 MRI, brain + inter nal audit ory canal , w/wo contr ast No observ ation record ed. [email or web address] [facility] ([facility]) [address] [place], [address], 03/01/2024 15:42:40 03/08/20 24 03/06/2024 MR, angio gram, head, w/o contr ast No observ ation record ed. [email or web address] [facility] [address] [place], [address], 03/25/2024 16:44:39 Result Notes None recorded. Problems Name Problem SNOMED Code Status Onset Date Resolution Date Notes Provider Name and Address Organization Details Recorded Time Nasal congestio n 90371075 Active 2021 Nasal congestio n; Note: Date Diagnosed : 09/09/2021 10:34 AM (R09.81) Not Available [facility] 4 02:19:10 Otosclero sis 34277446 Active 2015 Unspecifi ed otosclero sis, right ear; Note: Date Diagnosed : 04/22/2015 3:08 PM (H80.91) Not Available [facility] 4 02:19:11 Disorder of nasal sinus 3328475 Active 2021 Other specified disorders of nose and nasal sinuses; Note: Date Diagnosed : 10/27/2021 11:29 AM (J34.89) Not Available [facility] 4 02:18:24 Disorder of the nose 03982255 Active 2021 Other specified disorders of nose and nasal sinuses; Note: Date Diagnosed : 10/27/2021 11:29 AM (J34.89) Not Available [facility] 4 02:18:24 Exostosis of left external ear canal 50142860010 65970 Active 2022 Exostosis of left external canal; Note: Date Diagnosed : 01/19/2023 2:20 PM (H61.812) Not Available [facility] 4 02:19:16 Sensorine ural hearing loss of bilateral ears 500885240 Active 2017 Sensorine ural hearing loss, bilateral ; Note: Date Diagnosed : 8 10:58 AM (H90.3) Not Available [facility] 4 02:18:15 Bilateral subjectiv e pulsatile tinnitus of ears 24694487409 29012 Active 2023 [place] AGUIAR PA-C [address] [place] [address],[place] [address], [facility] [place], [phone] , [facility] - [facility] 4 15:23:56 Problem Notes None recorded. Procedures Surgical History Date Name Laterality Status Provider Name and Address Organization Details Recorded Time 01/31/2024 Comp Audio with Tymps - 09377 & 13067 completed RICK MEDRANO [place], AIXA-A [address] [place] [address],[place] [address], [place], [address], [facility] - [facility] 01/31/2024 10:49:50 Imaging Results Imaging Date Name Status LastModified by Organiz ation Details LastModified Time 02/01/2024 audiogram completed BARCODE Information no t available 02/01/2024 10:43:31 01/19/2023 audiogram completed [email or web address] [facility] [address] [place], [address], 02/02/2024 09:13:20 02/20/2024 MRI, brain + internal auditory canal, w/wo contrast completed [email or web address] [facility] ([facility]) [address] [place], [address], 03/01/2024 15:42:40 03/06/2024 MR, angiogram, head, w/o contrast completed [email or web address] [facility] [address] [place], [address], 03/25/2024 16:44:39 Procedure Notes None recorded. Medical Equipment None Reported. Allergies No known drug allergies Medications Name Sig Start Date Stop Date Status Note LastModified by Organization Details LastModified Time carbamaze pine ER 400 mg tablet,ex tended release,1 2 hr 01/30 completed Medicati on ID: [id number] B rand Name: carbamaz epine Se nd Method: E-Prescr ibed Sub s Allowed: subs OK Medic ationGen ericName : carbamaz epine Not Available Not Available Not Available carbamaze pine 200 mg tablet 09/09 completed Medicati on ID: [id number] D uration Value: 30 Brand Name: carbamaz epine Se nd Method: E-Prescr ibed Sub s Allowed: subs OK Medic ationGen ericName : carbamaz epine Not Available Not Available Not Available fluticaso ne propionat e 50 mcg/actua tion nasal spray,rodrigo pension 01/30 completed Medicati on ID: [id number] B rand Name: fluticas one propiona te Send Method: E-Prescr ibed Sub s Allowed: subs OK Speci al Instruct ion: INSTILL 1 SPRAY INTO EACH NOSTRIL TWICE A DAY DIRECTED Medicat ionGener icName: fluticas one propiona te Not Available Not Available Not Available naproxen 500 mg tablet TAKE ONE TABLET BY MOUTH TWICE A DAY NEEDED FOR PAIN WITH FOOD active Not Available Not Available No t Available neomycin 3.5 mg/g-poly myxin B 10,000 unit/g-de xameth 0.1 % eye oint USE AFTER HOT PACK. APPLY AND MASSAGE 1/4 INCH OF A STRIP TO RIGHT LOWER EYELID 3 TO 4 TIMES DAILY 01/30 completed Not Available Not Available Not Available carbamaze pine ER 100 mg capsule,e xtended release [id number] r TAKE FOUR CAPSULES BY MOUTH TWICE A DAY OR LESS DIRECTED active Not Available Not Available No t Available pregabali n 100 mg capsule TAKE 1 CAPSULE BY MOUTH DAILY IF THIS REDUCES GROGGINE SS WAIT 1 WEEK THEN TAKE 1 CAPSULE TWO TIMES DAILY DIRECTED 01/30 completed Not Available Not Available Not Available pregabali n 150 mg capsule TAKE ONE CAPSULE BY MOUTH TWICE A DAY active Not Available Not Available No t Available Vitals Date Recorded Body height Body mass index (BMI) Body weight Provider Name and Address Organization Details Last Updated DateTime 01/31/2024 167.64 cm 25 kg/m2 67882.82 g Claudia Solorio [facility] 01/31/2024 11:03:57 Social History None recorded. Functional Status None recorded. Mental Status None recorded. Family History Nothing Reported. Medical History No medical history recorded. Gynecological HistoryNo gynecological history recorded. Obstetrics History GPAL:G 0 P 0 0 0 0 Past Encounters Encounter ID Performer Location Encounter Start Date Encounter Closed Date Diagnosis/Indication Diagnosis SNOMED-CT Code Diagnosis ICD10 Code Diagnosis Note [id number] [place] AGUIAR PA-C [facility] [address] [address] 01/31/2024 10:13:43 01/31/2024 11:27:07 Sensorineural hearing loss of bilateral ears [id number] H90.3 Audiologic al evaluation results: Right ear: {{Normal N ormal through 2 kHz Mild M oderate Mo derately-s evere Sindhu re Profoun d Normal/ borderline normal hearing thru 2000Hz #}} {{hearing sloping to a mild slopi ng to a moderate s loping to moderately severe slo ping to severe slo ping to profound f lat high frequency low frequency mid frequency cookie bite prince curve slop ing to a mild to severe SNHL#}} {{with* se nsorineura l hearing loss with condu ctive hearing loss with mixed hearing loss with}} {{excellen t* good fa ir poor no measurable }} word recognitio n. Left ear: {{Normal N ormal through 2 kHz Mild M oderate Mo derately-s evere Sindhu re Profoun d Normal hearing thru 2000Hz sloping#}} {{hearing sloping to a mild slopi ng to a moderate s loping to moderately severe slo ping to severe slo ping to profound f lat high frequency low frequency mid frequency cookie bite prince curve to a mild to severe SNHL#}} {{with* se nsorineura l hearing loss with condu ctive hearing loss with mixed hearing loss with}} {{excellen t* good fa ir poor no measurable }} word recognitio n. Tympanomet ry: Right Ear:{{Type A* Type As Type Ad Type C Type C, shallow & rounded Ty pe B Type B with large volume Cou ld not maintain a hermetic seal}} Left Ear:{{Type A* Type As Type Ad Type C Type C, shallow & rounded Ty pe B Type B with large volume Cou ld not maintain a hermetic seal}} Bilateral subjective pulsatile tinnitus of ears [id number] 617257 H93.A3 Health Concerns Section Related Observation LastModified by Organization Detai ls LastModified Time None Recorded Concern Status LastModified by Organization Details LastModified Time None Recorded Advance Directives Directive None Recorded Payers Encounter Date Sequence Insurance Name Policy Number Policy Gonzalez Covered Member ID Gonzalez Member ID Guarantor Name 01/31/2024 1 [facility] - DOS ON OR AFTER 2022 - MEDICARE ADVANTAGE [place] (MEDICARE REPLACEMENT/ADV ANTAGE - PPO) Valerie C Mendiola [id number] Valerie C Mendiola Notes Date Note Type Note Provider Name and Address Organization Details Recorded Time 01/31/2024 text/html Patient with history of right otosclerosis [place] [address] Ness presents for evaluation of ears and hearing. She reports the hearing seems poor. She does well in quiet circumstances but when there is background noise she struggles. There is no otalgia and no otorrhea. A few months ago she developed pulsatile tinnitus in the left ear, in time with her pulse, that has been stable since onset. She has no known vascular issues and no family history of such. No new medications, surgeries, nor lifestyle changes. DARYN STARK MD [address] [place] [address], [place], [address], [facility] - [facility] 01/31/2024 16:41:43 OBGyn Episode No OBEpisode recorded.
== END 2024-07-18 13:30 | disposition home or self-care (01) ==
LOC: HO.CT 13:29
PROVIDERS: PCP Internal Medicine; Visit Provider Psychiatry & Neurology Neurology
DX: I67.1 Cerebral aneurysm, nonruptured (principal)
CPT/HCPCS: 70496; Q9967

== ENCOUNTER → 2024-07-18 13:34 | Outpatient (BNV) | payer MEDICARE, SELFPAY | PROVIDERS: PCP Internal Medicine; Visit Provider Radiology Neuroradiology | DX: I72.8 Aneurysm of other specified arteries (principal); Q28.1 Other malformations of precerebral vessels | CPT/HCPCS: 70496 ==

== ENCOUNTER 2024-08-06 10:56 | Outpatient (AMB) | payer MEDICARE, SELFPAY ==
--- NOTE | 2024-08-06 11:06 | A.OFFPC_ITS ---
Vital Signs 08/06/24 11:07 Height 5 ft 5 in Weight 153 lb BMI 25.5 BP 122/76 Blood Pressure Location Lt brachial Position Sitting Pulse 48 L Pulse Source Pulse Oximeter Pulse Oximetry (%) 96 Oxygen Delivery Method Room Air Intake Visit Reasons: TM/osteoarthritis Medical Office Specialist Required: No Accompanied by: Self / Same As Patient Allergies cephalexine Adverse Reaction (Intermediate, Uncoded 08/06/24 12:50) eye swelling Medication List - Last Reconciled 08/06/24 by Hermann Phillips MD carbamazepine ER 400 mg PO BID cholecalciferol (vitamin D3) 50 mcg PO DAILY Grab bar As directed multivitamin 1 tab PO DAILY phytonadione (vit K1) (bulk) 100% (Vitamin K1) ea miscellaneous pregabalin 150 mg PO BID 30 days [tumeric PO 2XD] zinc acetate 25 mg PO DAILY Tobacco use date assessed: 08/06/24 Fall risk assessment: 2 + Falls in past year Last assessed Fall Risk: 08/06/24 Dental Screening Dental Screen Date: 08/06/24 Did you have a dental visit in the last 12 months?: No Did you have a dental problem in the last 6 months where you did not have access to dental care?: No Was dental information given to patient?: No HPI TM/osteoarthritis HPI Details Patient comes in today for her follow up visit for her trigeminal neuralgia She was seen by Dr. 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 Gastelum and she had this done at the beginning of the month (07/18/2024) States that she has a follow up appointment with Dr. Gastelum tomorrow She denies any headaches or dizziness lately Denies any chest pains, no SOB No nausea/vomiting, no abdominal pain No change in bowel habits noted She also had her repeat BMD done at the beginning of the year and recalls being advised that she has osteopenia [facility] Medical History (Updated 08/06/24 @ 13:03 by Hermann Phillips MD) Osteopenia Left breast mass Hearing impairment Allergic rhinitis Depression Trigeminal neuralgia of left side of face Surgical History History of cranioplasty History of ear surgery History of nasal septoplasty Family History Father No problems noted. Mother No problems noted. 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 1. Little interest or pleasure in doing things: several days 2. Feeling down, depressed, or hopeless: several days 3. Trouble falling or staying asleep, or sleeping too much: not at all 4. Feeling tired or having little energy: several days 5. Poor appetite or overeating: several days 6. Feeling bad about yourself - or that you are a failure or have let yourself or your family down: not at all 7. Trouble concentrating on things, such as reading the newspaper or watching television: several days 8. Moving or speaking so slowly that other people could have noticed. Or the opposite - being so fidgety or restless that you have been moving around a lot more than usual: not at all 9. Thoughts that you would be better off or of hurting yourself in some way: not at all Total score: 5 Depression Screening Interpretation: Positive Depression Screening Follow-up: Follow-up Visit Requested Depression Screening Done: Yes 72977 - PHQ-9 Billing: Yes Source: Developed by Drs. Favio Sawyer, Jesi Chauhan, Juan Jose Vega and colleagues, with an educational naveen from [employer]. Thrive Questionnaire Date Thrive assessed: 08/06/24 I am a: Patient What is your living situation today?: I choose not to answer this question Within the past 12 months, did the food you bought not last and you didn't have the money to get more?: I choose not to answer this question Within the past 12 months, did you worry whether your food would run out before you got money to buy more?: I choose not to answer this question Do you have trouble paying for medicines?: I choose not to answer this question Do you have trouble getting transportation to medical appointments?: I choose not to answer this question Do you have trouble paying your heating and electricity bill?: No Do you have trouble taking care of your child, family member or friend?: I choose not to answer this question Do you have trouble with day-to-day activities such as bathing, preparing meals, shopping, managing finances, etc.?: I choose not to answer this question Are you currently unemployed and looking for a job?: No Are you interested in more education?: I choose not to answer this question Please select the resources that you would like help with: None Currently or been in a relationship where the following occur: I choose not to answer THRIVE Score: 0 AUDIT C Alcohol Use Questionnaire (AUDIT-C) 1. How often do you have a drink containing alcohol?: Never 3. How often do you have six or more drinks on one occasion?: Never Total Score: 0 Score Reviewed/Action Taken: Yes BRITTANY-7 AMB Questionnaire BRITTANY-7 Date BRITTANY - 7 assessed: 08/06/24 Feeling nervous, anxious, or on edge: 0 = Not at all Not being able to stop or control worryin = Not at all Worrying too much about different things: 0 = Not at all Trouble relaxin = Not at all Being so restless that it is hard to sit still: 0 = Not at all Becoming easily annoyed or irritable: 0 = Not at all Feeling afraid as if something awful might happen: 0 = Not at all Total BRITTANY-7 score (0-4 normal; 5-9 mild; 10-14 moderate; 15-21 severe): 0 Source: Developed by Drs. Favio Sawyer, Jesi Chauhan, Juan Jose Vega and colleagues, with an educational naveen from [employer]. Review of Systems Const Denies chills, Denies fatigue, Denies fever(s) and Denies headache(s) ENT Denies dysphagia, Denies dizziness, Denies otalgia, Denies headache(s), Denies neck pain, Denies odynophagia and Denies sore throat Card Denies chest pain, Denies irregular heart rhythm, Denies palpitations and Denies dyspnea Resp Denies chest congestion, Denies cough and Denies dyspnea GI Denies abdominal pain, Denies constipation, Denies dysphagia, Denies heartburn, Denies diarrhea, Denies nausea, Denies odynophagia and Denies vomiting Denies urinary frequency, Denies dysuria and Denies urinary urgency Musc Denies back pain, Denies arthralgias and Denies neck pain Skin/Breast Denies rash Neuro Details: (+) on and off sharp, jolting pains over the left side of her jaw/TMJ area Denies dizziness, Denies headache(s) and Denies paresthesias Psych Denies anxiety and Denies depression Endo Denies fatigue and Denies palpitations Alo/Lymph Denies easy bruising Physical exam (Primary Care) Vital Signs: Last Vital Signs Pulse 48 L 08/06/24 11:07 BP 122/76 08/06/24 11:07 Pulse Ox 96 08/06/24 11:07 Oxygen Delivery Method Room Air 08/06/24 11:07 BMI result Body Mass Index 25.5 Tobacco/Smoking Status: Tobacco use Status Tobacco use date assessed 08/06/24 08/06/24 11:14 Patient Tobacco Use Status Never used Tobacco 08/06/24 11:14 e-Cigarette/Vaping Use Never Used 08/06/24 11:14 PHQ-9: PHQ-9 Score PHQ-9: Total score 5 08/06/24 11:14 Depression Screening Interpretation: Positive Depression Screening Follow-up: Follow-up Visit Requested Thrive Assessment: Date of Thrive Assessment Date Thrive assessed 08/06/24 08/06/24 11:14 Currently or been in a relationship where the following occur: I choose not to answer Const General: no acute distress and alert HENMT Ears: TM's normal bilaterally and EAC's normal Throat: Yes posterior oropharynx normal and Yes tonsils normal (no TP congestion) Neck Neck: Yes no lymphadenopathy and Yes supple Thyroid: Thyroid normal Resp Auscultation: clear to auscultation bilaterally, no rales and no wheezes Cardio Rate: regular rate Rhythm: regular rhythm Heart sounds: no murmurs GI Palpation (GI): Soft to palpation and nontender Auscultation: normal bowel sounds General: Yes no CVA tenderness Back/Spine/Pelvis Back: no CVA tenderness Thoracic/Lumbar Spine: No lumbar spinal tenderness Skin Rashes: no rashes Extrem General: Yes no clubbing, cyanosis or edema Coding Level of Care Code Est Pt Level 4 (66613) Diagnoses Trigeminal neuralgia of left side of face G50.0 Dyslipidemia E78.5 Allergic rhinitis, unspecified seasonality, unspecified trigger J30.9 Allergic rhinitis trigger: unspecified Allergic rhinitis seasonality: unspecified Primary osteoarthritis of right knee M17.11 Osteoarthritis type: primary Osteopenia, unspecified location M85.80 Osteopenia location: unspecified Depression, unspecified depression type F32.9 Depression Type: unspecified Additional Codes PHQ-9 - 71228 - PHQ-9 Billing: Yes ([id number]) Assessment & Plan Assessment & Plan (1) Trigeminal neuralgia of left side of face: Comment: S/P left Jannetta procedure CN V with methylmethacrylate cranioplasty (Dr. Alisa Pro) on 07/22/2019 Code(s): G50.0 - Trigeminal neuralgia Category: Medical Plan: S/P Jannetta procedure back in 2019 She was offered a trial of glycerol rhizotomy injection by Dr. Pro a few years ago, which patient declined States that she was doing well on Pregabalin 150 mg BID and Carbamazepine ER 400 mg BID but her Carbamazepine was changed to the tablet formulation by Dr. Gastelum a few months ago She used to see Dr. Booker until he retired a few years ago, then started seeing Dr. Ott up until he retired last year and is now [place]. [place] [facility] [place] (2) Dyslipidemia: Code(s): E78.5 - Hyperlipidemia, unspecified Category: Medical Plan: Reinforced low cholesterol diet - have advised her again that her last lab results in July 2021 revealed a borderline high LDL cholesterol and elevated total cholesterol levels Patient was advised that she should try getting her fasting lipids rechecked in a few months for follow up (3) Allergic rhinitis: Code(s): J30.9 - Allergic rhinitis, unspecified Category: Medical Qualifiers: Allergic rhinitis trigger: unspecified Allergic rhinitis seasonality: unspecified Qualified Code(s): J30.9 - Allergic rhinitis, unspecified Plan: Continue OTC Loratadine 10 mg QD PRN and/or OTC Fluticasone 50 mcg nasal spray QD PRN (4) Osteoarthritis of right knee: Code(s): M17.11 - Unilateral primary osteoarthritis, right knee Category: Medical Qualifiers: Osteoarthritis type: primary Qualified Code(s): M17.11 - Unilateral primary osteoarthritis, right knee Plan: Right knee x-rays done last year revealed no acute fracture but (+) mild ost eoarthritis changes in the right knee She was then referred to physical therapy, which she states helped with her knee symptoms (5) Osteopenia: Code(s): M85.80 - Other specified disorders of bone density and structure, unspecified site Category: Medical Qualifiers: Osteopenia location: unspecified Qualified Code(s): M85.80 - Other specified disorders of bone density and structure, unspecified site Plan: Repeat BMD done in March 2024 revealed (+) osteopenia based on the lowest T- score value of -1.2 in the femoral neck - results are mostly unchanged from her previous BMD scan in September 2021 Patient is again encouraged to continue to stay active and exercise regularly and to continue taking her daily Calcium and Vitamin D supplements Will recheck her BMD again in 2 to 3 years for follow up (6) Depression: Code(s): F32.9 - Major depressive disorder, single episode, unspecified Category: Medical Qualifiers: Depression Type: unspecified Qualified Code(s): F32.9 - Major depressive disorder, single episode, unspecified Plan: Resolved/controlled - patient used to take Citalopram but stopped it (on her own) last year States that she has been doing well since and does not have any problems/issues with depression currently Plan Follow up in 4 months Orders: Orders Lipid Panel 4 Months E78.00 - Pure hypercholesterolemia, unspecified TSH reflex Free T4 4 Months E78.00 - Pure hypercholesterolemia, unspecified UA CC w/rflx Micro + Cult 4 Months R30.0 - Dysuria Complete Blood Count Auto Diff 4 Months D64.9 - Anemia, unspecified Comprehensive [place]. Panel Fast 4 Months E78.00 - Pure hypercholesterolemia, unspecified
[2024-08-06 11:07] VITALS: BP 122/76; PULSE 48; O2SAT 96; BMI 25.5
--- OUTSIDE RECORDS SUMMARY | 2024-08-06 12:13 | XMS_ITS | Clinical Summary ---
Author Organization [facility] Address [id number] [place] [id number] Care Team Providers Care Felter Tennis Balls Name Role Phone Hermann Phillips MD Primary [...] age to complete this topic Care Teams Felter Tennis Balls Relationship Specialty Start Date End Date Hermann Phillips MD [address] [place] [address] Dr [address] [place], [place] PCP - General Internal Medicine 04/03/19
--- OUTSIDE RECORDS SUMMARY | 2024-08-06 12:14 | XMS_ITS | Data Portability ---
Author Organization [place] - [facility], Allergy Address [address] [address] Care Team Providers Care Time Clock Repairer Name Role Phone VIVEK, HANY Primary Care Provider Assessment Encounter Date Assessment Date Assessment LastModified [...] CONTRAST pulsatile tinnitus left ear 2023 024 [facility] ([facility]), [address] [place], [address], 4 17:21:40 MR, angiogram, head, w/o contrast - pulsatile tinnitus 2023 024 [email or web address] [facility] ([facility]), [address] [place], [address], 15:06:25 Medication Orders None recorded. Patient TargetsNo targets recorded. Patient InstructionsNo instructions recorded. Reason for Referral None Reported. Results Created Date Observation Date Name Description Value Unit Range Abnormal Flag Note LastModifiedBy Organization Detail LastModifiedTime 02/01/20 audio gram No observ ation record ed. BARCODE Not Available 2023 10:43:31 02/01/2001/19/2023 audio gram No observ ation record ed. [email or web address] [facility] [address], [address], 02/02/2024 09:13:20 02/22/20 24 02/20/2024 MRI, brain + inter nal audit ory canal , w/wo contr ast No observ ation record ed. [email or web address] [facility] ([facility]) [address] [place], [address], 03/01/2024 15:42:40 03/08/20 24 03/06/2024 MR, angio gram, head, w/o contr ast No observ ation record ed. [email or web address] [facility] [address] [place], [address], 03/25/2024 16:44:39 Result Notes None recorded. Problems Name Problem SNOMED Code Status Onset Date Resolution Date Notes Provider Name and Address Organization Details Recorded Time Nasal congestio n 97412920 Active 2021 Nasal congestio n; Note: Date Diagnosed : 09/09/2021 10:34 AM (R09.81) Not Available [facility] 4 02:19:10 Otosclero sis 39475024 Active 2015 Unspecifi ed otosclero sis, right ear; Note: Date Diagnosed : 04/22/2015 3:08 PM (H80.91) Not Available [facility] 4 02:19:11 Disorder of nasal sinus 4498030 Active 2021 Other specified disorders of nose and nasal sinuses; Note: Date Diagnosed : 10/27/2021 11:29 AM (J34.89) Not Available [facility] 4 02:18:24 Disorder of the nose 80896297 Active 2021 Other specified disorders of nose and nasal sinuses; Note: Date Diagnosed : 10/27/2021 11:29 AM (J34.89) Not Available [facility] 4 02:18:24 Exostosis of left external ear canal 02679277408 58231 Active 2022 Exostosis of left external canal; Note: Date Diagnosed : 01/19/2023 2:20 PM (H61.812) Not Available [facility] 4 02:19:16 Sensorine ural hearing loss of bilateral ears 276324926 Active 2017 Sensorine ural hearing loss, bilateral ; Note: Date Diagnosed : 8 10:58 AM (H90.3) Not Available [facility] 4 02:18:15 Bilateral subjectiv e pulsatile tinnitus of ears 37898209717 88152 Active 2023 [place] AGUIAR PA-C [address] [place] [address],[place] [address], [facility] VENECIA ruelas, [phone] , [facility] - [facility] 4 15:23:56 Problem Notes None recorded. Procedures Surgical History Date Name Laterality Status Provider Name and Address Organization Details Recorded Time 01/31/2024 Comp Audio with Tymps - 66031 & 63591 completed RICK MEDRANO [place], AIXA-A [address] [place] [address],[place] [address], [place], [address], [facility] - [facility] 01/31/2024 10:49:50 Imaging Results Imaging Date Name Status LastModified by Organiz ation Details LastModified Time 02/01/2024 audiogram completed BARCODE Information no t available 02/01/2024 10:43:31 01/19/2023 audiogram completed [email or web address] [facility] [address] [place], [address], 02/02/2024 09:13:20 02/20/2024 MRI, brain + internal auditory canal, w/wo contrast completed [email or web address] [facility] ([facility]) [address] [place], [address], 03/01/2024 15:42:40 03/06/2024 MR, angiogram, head, w/o contrast completed [email or web address] [facility] [address] [place], [address], 03/25/2024 16:44:39 Procedure Notes None recorded. Medical Equipment None Reported. Allergies No known drug allergies Medications Name Sig Start Date Stop Date Status Note LastModified by Organization Details LastModified Time carbamaze pine ER 400 mg tablet,ex tended release,1 2 hr 01/30 completed Medicati on ID: [id number] B rand Name: carbamaz epine Se nd Method: E-Prescr ibed Sub s Allowed: subs OK Medic ationGen ericName : carbamaz epine Not Available Not Available Not Available carbamaze pine 200 mg tablet 09/09 completed Medicati on ID: [id number] D uration Value: 30 Brand Name: carbamaz epine Se nd Method: E-Prescr ibed Sub s Allowed: subs OK Medic ationGen ericName : carbamaz epine Not Available Not Available Not Available fluticaso ne propionat e 50 mcg/actua tion nasal spray,rodrigo pension 01/30 completed Medicati on ID: [id number] B rand Name: fluticas one propiona te [...] pine ER 100 mg capsule,e xtended release [id number] r TAKE FOUR CAPSULES BY MOUTH TWICE [...] Updated DateTime 01/31/2024 167.64 cm 25 kg/m2 09211.82 g Claudia Solorio [facility] 01/31/2024 11:03:57 Social History None recorded. Functional Status None recorded. Mental Status None recorded. Family History Nothing Reported. Medical History No medical history recorded. Gynecological HistoryNo gynecological history recorded. Obstetrics History GPAL:G 0 P 0 0 0 0 Past Encounters Encounter ID Performer Location Encounter Start Date Encounter Closed Date Diagnosis/Indication Diagnosis SNOMED-CT Code Diagnosis ICD10 Code Diagnosis Note [id number] [place] AGUIAR PA-C [facility] [address] [address] 01/31/2024 10:13:43 01/31/2024 11:27:07 Sensorineural hearing loss of bilateral ears 627309532 H90.3 Audiologic al evaluation results: Right ear: [...] seal}} Bilateral subjective pulsatile tinnitus of ears 8889719396 042188 H93.A3 Health Concerns Section Related Observation LastModified by Organization Detai ls LastModified Time None Recorded Concern Status LastModified by Organization Details LastModified Time None Recorded Advance Directives Directive None Recorded Payers Insurance Date Sequence Insurance Name Policy Number Policy Gonzalez Covered Member ID Gonzalez Member ID Guarantor Name 01/31/2024 1 [facility] - DOS ON OR AFTER 2022 - MEDICARE [place]VANTAGE [place]MEDICARE REPLACEMENT/AD VANTAGE - PPO) Valerie C Mendiola [id number] Valerie C Mendiola 01/31/2024 1 [place] [facility] Valerie C Mendiola [id number] Valerie C Mendiola Notes Date Note Type [...] surgeries, nor lifestyle changes. DARYN STARK MD [address] [place] [address], [phone], [facility] - [facility] 01/31/2024 16:41:43 OBGyn Episode No OBEpisode recorded.
== END 2024-08-06 11:59 | disposition home or self-care (01) ==
LOC: HO.HMCH 10:57
PROVIDERS: PCP Internal Medicine; Visit Provider Internal Medicine
DX: G50.0 Trigeminal neuralgia (principal); E78.5 Hyperlipidemia, unspecified; J30.9 Allergic rhinitis, unspecified; M17.11 Unilateral primary osteoarthritis, right knee; M85.80 Other specified disorders of bone density and structure, unspecified site; F32.9 Major depressive disorder, single episode, unspecified

== ENCOUNTER → 2024-08-06 10:56 | Outpatient (BNVA) | payer MEDICARE, SELFPAY | PROVIDERS: PCP Internal Medicine; Visit Provider Internal Medicine | DX: G50.0 Trigeminal neuralgia (principal); J30.9 Allergic rhinitis, unspecified; M17.11 Unilateral primary osteoarthritis, right knee; M85.80 Other specified disorders of bone density and structure, unspecified site; F32.9 Major depressive disorder, single episode, unspecified; E78.00 Pure hypercholesterolemia, unspecified; R30.0 Dysuria; D64.9 Anemia, unspecified | CPT/HCPCS: 96127; 99212 ==

== ENCOUNTER 2024-09-24 11:28 | Outpatient (AMB) | payer MEDICARE, SELFPAY ==
--- NOTE | 2024-09-24 11:31 | A.OFFVIS_ITS ---
Vital Signs 09/24/24 11:36 Height 5 ft 5 in Weight 152 lb BMI 25.3 BP 122/62 Blood Pressure Location Rt brachial Position Sitting Pulse 50 Pulse Source Pulse Oximeter Pulse Oximetry (%) 97 Oxygen Delivery Method Room Air Intake Visit Reasons: [place] screening Intake Note: New pt for recall colo screening. Last per Dr. Phillips's note was >10 years ago. Unspecified. CC: C.O. intermittent difficulty with evacuation of colon as well as intermittent mild to moderate incontinence of stool. Pt also reports concern of bloating and gas. Data Conversion Analyst Required: No Accompanied by: Self / Same As Patient Allergies cephalexin (From Keflex) Adverse Reaction (Unknown, Verified 09/24/24 11:32) Swelling HPI HPI [place] screening: Details: 69 year old? female with past medical history of carotid artery aneurysm, dyslipidemia, allergic rhinitis is here today for pre colonoscopy screening.? Patient was sent to us by her PCP.? Last colonoscopy 10 years ago. Patient reports she had a normal colonoscopy then.? Patient reports irregular bowel movements, flatulence. Reports occasional stool incontinence. Patient reports feeling very gassy. Denies melena or hematochezia.? Denies any personal or family history of gastrointestinal disease, colon polyps, or CRC.? Denies history of difficulty with sedation or anesthesia in the past.? Negative for history of sleep apnea.? Denies any history of cardiac, renal, pulmonary, or hepatic disease.?? No history of infectious diseases like hepatitis A, B, C, HIV or tuberculosis.? Patient is not on any anticoagulation [facility] Medical History Osteopenia Left breast mass Hearing impairment Allergic rhinitis Depression Trigeminal neuralgia of left side of face Surgical History History of cranioplasty History of ear surgery History of nasal septoplasty Family History Father No problems noted. Mother No problems noted. 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 Cognitive needs: No Hearing needs: No Vision needs: Yes Review of Systems Const Denies weight gain and Denies weight loss ENT Reports no additional complaints, Denies dysphagia and Denies odynophagia Card Reports no additional complaints Resp Reports no additional complaints GI Denies abdominal pain, Denies belching, Denies melena, Denies bloating, Denies change in bowel habits, Reports tenesmus, Denies dysphagia, Reports excessive flatus, Denies dyspepsia, Denies heartburn, Denies diarrhea, Reports loose stools, Denies nausea, Denies odynophagia and Denies vomiting Reports no additional complaints Musc Reports no additional complaints Neuro Reports no additional complaints Psych Reports no additional complaints Endo Reports no additional complaints Physical Exam Vital Signs: Last Vital Signs Pulse 50 09/24/24 11:36 BP 122/62 09/24/24 11:36 Pulse Ox 97 09/24/24 11:36 Oxygen Delivery Method Room Air 09/24/24 11:36 BMI result Body Mass Index 25.3 Const General: healthy appearing, no acute distress and well developed Nutritional Appearance: well nourished Orientation/consciousness: patient oriented x3 Resp Effort & Inspection: normal respiratory effort, able to speak in complete sentences, no tracheal deviation and symmetric chest movement Auscultation: clear to auscultation bilaterally Cardio Rate: regular rate GI Inspection: Yes normal to inspection and No distended Palpation (GI): Soft to palpation, not firm, nontender and No hepatosplenomegaly present Auscultation: normal bowel sounds General: Yes no CVA tenderness Back/Spine/Pelvis Back: no CVA tenderness Skin General skin exam: elasticity normal, turgor normal and dry skin Neuro General: patient oriented x3 Psych Appearance: grossly normal Mental Status: mental status grossly normal Assessment & Plan Assessment & Plan (1) Colon cancer screening: Code(s): Z12.11 - Encounter for screening for malignant neoplasm of colon Category: Medical Plan Patient denies any cardiac or respiratory symptoms.? Patient reports frequent stooling. Sometimes reports stool incontinence. Patient will increase fiber in her diet. Avoid dietary triggers. Low FODMAP diet discussed with patient. Patient is feeling very gassy and bloated. List of food recommended as well as list of food to avoid given to patient. Denies any issues with anesthesia in the past.? Denies any history of sleep apnea.? No history infectious diseases in the past or present.? Not on any anticoagulation therapy.? No family or personal history of colon cancer or polyps.? Patient denies melena, hematochezia, unintentional weight loss or ribbon like stools.? Discussed at length the pre- procedure,? prep, diet & medications as well as what to expect prior, during and after the procedure.?? Stressed the importance of good bowel prep.? Recommended the use of Vaseline or Calmoseptine OTC & baby wipes with bowel movements to promote comfort.? ?Patient verbalizes understanding and agrees to plan of care.? She was given the opportunity to ask questions and all questions answered.? We will see her after the procedure.? Medications: New bisacodyl (Dulcolax (bisacodyl)) take 4 tabs at noon the day before your colonoscopy 20 mg (4 x 5 mg) PO ONCE PRN 4 tabs 0RF constipation 1 day Z12.11 - Encounter for screening for malignant neoplasm of colon polyethylene glycol 3350 (Miralax) As directed by gastroenterology department at [facility] 238 grams PO ONCE 238 grams 0RF Z12.11 - Encounter for screening for malignant neoplasm of colon Coding Level of Care Code New Pt Level 3 (50782) Diagnoses Colon cancer screening Z12.11 Time Spent (min) 40 Comment 30 minutes spent with patient and additional 10 minutes spent reviewing her records
[2024-09-24 11:36] VITALS: BP 122/62; PULSE 50; O2SAT 97; BMI 25.3
--- OUTSIDE RECORDS SUMMARY | 2024-09-24 12:34 | XMS_ITS | Data Portability ---
Author Organization [place] - [facility], Allergy Address [address] [address] Care Team Providers Care Appraisal Specialist Name Role Phone HANY DOYLE Primary Care Provider Assessment Encounter Date Assessment [...] CONTRAST pulsatile tinnitus left ear 2023 024 [facility] ([facility]), [address] [place], [address], 4 17:21:40 MR, angiogram, head, w/o contrast - pulsatile tinnitus 2023 024 [email or web address] [facility] ([facility]), [address] [place], [address], 15:06:25 Medication Orders None recorded. Patient TargetsNo targets recorded. Patient InstructionsNo instructions recorded. Reason for Referral None Reported. Results Created Date Observation Date Name Description Value Unit Range Abnormal Flag Note LastModifiedBy Organization Detail LastModifiedTime 02/01/20 audio gram No observ ation record ed. BARCODE Not Available 2023 10:43:31 02/01/2001/19/2023 audio gram No observ ation record ed. [email or web address] [facility] [address], [address], 02/02/2024 09:13:20 02/22/20 24 02/20/2024 MRI, brain + inter nal audit ory canal , w/wo contr ast No observ ation record ed. [email or web address] [facility] ([facility]) [address] [place], [address], 03/01/2024 15:42:40 03/08/20 24 03/06/2024 MR, angio gram, head, w/o contr ast No observ ation record ed. [email or web address] [facility] [address] [place], [address], 03/25/2024 16:44:39 Result Notes None recorded. 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 Active 2015 Unspecifi ed otosclero sis, right ear; Note: Date Diagnosed : 04/22/2015 3:08 PM (H80.91) Not Available [facility] 4 02:19:11 Disorder of nasal sinus 8199793 Active 2021 Other specified disorders of nose and nasal sinuses; Note: Date Diagnosed : 10/27/2021 11:29 AM (J34.89) Not Available [facility] 4 02:18:24 Disorder of the nose 95906668 Active 2021 Other specified disorders of nose and nasal sinuses; Note: Date Diagnosed : 10/27/2021 11:29 AM (J34.89) Not Available [facility] 4 02:18:24 Exostosis of left external ear canal 19115338873 78546 Active 2022 Exostosis of left external canal; Note: Date Diagnosed : 01/19/2023 2:20 PM (H61.812) Not Available [facility] 4 02:19:16 Sensorine ural hearing loss of bilateral ears 715308619 Active 2017 Sensorine ural hearing loss, bilateral ; Note: Date Diagnosed : 8 10:58 AM (H90.3) Not Available [facility] 4 02:18:15 Bilateral subjectiv e pulsatile tinnitus of ears 09559361745 87068 Active 2023 [place] AGUIAR PA-C [address] [place] [address],[place] [address], [place], [address] , [facility] - [facility] 4 15:23:56 Problem Notes None recorded. Procedures Surgical History Date Name Laterality Status Provider Name and Address Organization Details Recorded Time 01/31/2024 Comp Audio with Tymps - 42484 & 88506 completed RICK MEDRANO [place], CCC-A [address] [place] [address],[place] [address], [place], [address], [facility] - [facility] 01/31/2024 10:49:50 Imaging Results None recorded. Procedure Notes None recorded. Medical Equipment None Reported. Allergies No known drug allergies Medications Name Sig Start Date Stop Date Status Note LastModified by Organization Details LastModified Time carbamaze pine ER 400 mg tablet,ex tended release,1 2 hr 01/30 completed Medicati on ID: [id number] B rand Name: carbamaz epine Se nd Method: E-Prescr ibed Sub s Allowed: subs OK Medic ationGen ericName : carbamaz epine Not Available Not Available Not Available carbamaze pine 200 mg tablet 09/09 completed Medicati on ID: [id number] D uration Value: 30 Brand Name: carbamaz epine Se nd Method: E-Prescr ibed Sub s Allowed: subs OK Medic ationGen ericName : carbamaz epine Not Available Not Available Not Available fluticaso ne propionat e 50 mcg/actua tion nasal spray,rodrigo pension 01/30 completed Medicati on ID: [id number] B rand Name: fluticas one propiona te [...] pine ER 100 mg capsule,e xtended release [id number] r TAKE FOUR CAPSULES BY MOUTH TWICE [...] Updated DateTime 01/31/2024 167.64 cm 25 kg/m2 69953.82 g Claudia Potvin [place] - [facility] 01/31/2024 11:03:57 Social History None recorded. Functional Status None recorded. Mental Status None recorded. Family History Nothing Reported. Medical History No medical history recorded. Gynecological HistoryNo gynecological history recorded. Obstetrics History GPAL:G 0 P 0 0 0 0 Past Encounters Encounter ID Performer Location Encounter Start Date Encounter Closed Date Diagnosis/Indication Diagnosis SNOMED-CT Code Diagnosis ICD10 Code Diagnosis Note [id number] [place] AGUIAR PA-C [facility] [address] [place] [address] 01/31/2024 10:13:43 01/31/2024 11:27:07 Sensorineural hearing loss of bilateral ears [id number] H90.3 Audiologic al evaluation results: Right ear: Normal/ borderline normal hearing thru 2000Hz sloping to a mild to severe SNHL with excellent word recognitio n. Left ear: Normal hearing thru 2000Hz sloping to a mild to severe SNHL with excellent word recognitio n. Tympanomet ry: Right Ear:Type A Left Ear:Type A Bilateral subjective pulsatile tinnitus of ears [id number] 720088 H93.A3 Health Concerns Section Related Observation LastModified by Organization Detai ls LastModified Time None Recorded Concern Status LastModified by Organization Details LastModified Time None Recorded Advance Directives Directive None Recorded Payers Insurance Date Sequence Insurance Name Policy Number Policy Gonzalez Covered Member ID Gonzalez Member ID Guarantor Name 01/31/2024 1 [facility] - DOS ON OR AFTER 2022 - MEDICARE ADVANTAGE [place] (MEDICARE REPLACEMENT/AD VANTAGE - PPO) Valerie C Mendiola [id number] Valerie C Mendiola 01/31/2024 1 [place] [facility] Valerie C Mendiola [id number] Valerie C Mendiola Notes Date Note Type [...] surgeries, nor lifestyle changes. DARYN STARK MD [address] [place] [address], [place], [address], [facility] - [facility] 01/31/2024 16:41:43 OBGyn Episode No OBEpisode recorded.
--- OUTSIDE RECORDS SUMMARY | 2024-09-24 12:34 | XMS_ITS | Clinical Summary ---
Author Organization [facility] Address [address] [place] [address] Care Team Providers Care Counter Person Name Role Phone Hermann Phillips MD Primary Care Provider [phone] Social History Tobacco Use Types Packs/Day Years [...] 2023-2 5 season) 2023 Influenza Vaccine (#1) 2024 RSV Immunization Adult Patie nts (1 [...] age to complete this topic Care Teams Counter Person Relationship Specialty Start Date End Date Hermann Phillips MD [address] [place] [address] Dr [address] [place], [place] PCP - General Internal Medicine 04/03/19
== END 2024-09-24 12:23 | disposition home or self-care (01) ==
LOC: HO.HGI 11:30
PROVIDERS: PCP Internal Medicine; Visit Provider Nurse Practitioner Family
DX: Z12.11 Encounter for screening for malignant neoplasm of colon (principal)
CPT/HCPCS: 99024

== ENCOUNTER → 2024-09-24 11:28 | Outpatient (BNVA) | payer MEDICARE, SELFPAY | PROVIDERS: PCP Internal Medicine; Visit Provider Nurse Practitioner Family | DX: Z12.11 Encounter for screening for malignant neoplasm of colon (principal) | CPT/HCPCS: 99212 ==

== ENCOUNTER 2024-12-12 10:46 | Outpatient (REF) | payer MEDICARE, SELFPAY ==
[2024-12-12 11:14] LABS: MANUAL DIFF FLAG NO
[2024-12-12 11:52] LABS: Hematocrit 36.0 % (37.0-47.0); Hemoglobin 12.9 g/dl (12.0-16.0); Imm Gran Abs Auto 0.01 X10*3/uL (0.00-0.03); Imm Gran Pct Auto 0.3 % (0.0-0.4); Lymphocytes Absolute Auto 1.0 X10*3/uL (1.2-4.9); Mean Corpuscular HGB Conc 35.8 g/dl (31.0-35.0); Mean Corpuscular Hemoglobin 32.7 pg (27.0-33.0); Mean Corpuscular Volume 91.1 fL (80.0-98.0); NRBC Abs Auto 0.000 X10*3/uL (0.0-0.012); NRBC Pct Auto 0.0 /100WBC (0.0-0.2); Platelet Count 236 X10*3/uL (160-400); Red Blood Count 3.95 X10*6/uL (4.20-5.50); White Blood Count 3.9 X10*3/uL (4.8-10.8)
[2024-12-12 12:09] LABS: Appearance Urine Clear; Glucose Urine UA Negative (Negative); PH >= 9.0 (5.0-9.0); Specific Gravity - Urine 1.015 (1.005-1.025); UMIC TRIGGER UACC YES
[2024-12-12 12:28] LABS: UACC Culture Trigger YES
[2024-12-12 12:43] LABS: Alanine Aminotransferase 19 U/L (0-31); Albumin Level 4.1 g/dL (3.5-5.0); Alkaline Phosphatase 119 U/L (39-117); Anion Gap 9 (12-20); Aspartate Amino Transferase 24 U/L (5-31); Blood Urea Nitrogen 9 mg/dL (9-16); Calcium 9.1 mg/dL (8.4-10.2); Carbon Dioxide 31 mmol/L (22-29); Chloride 100 mmol/L (96-108); Cholesterol 233 mg/dL (<200); Estimated Glomerular Filt Rate > 60; HDL Cholesterol 77 mg/dL (>40); Potassium 4.2 mmol/L (3.3-5.1); Sodium 136 mmol/L (135-145); Total Protein 6.4 g/dL (6.5-8.0); Triglycerides 51 mg/dL (<150)
[2024-12-12 13:48] LABS: Carbamazepine Tegretol 8.5 mcg/mL (5.0-12.0)
== END 2024-12-12 10:47 | disposition home or self-care (01) ==
LOC: HO.LAB 10:46
PROVIDERS: PCP Internal Medicine; Visit Provider Internal Medicine
DX: G50.0 Trigeminal neuralgia (principal); E78.00 Pure hypercholesterolemia, unspecified; D64.9 Anemia, unspecified; E55.9 Vitamin D deficiency, unspecified; R30.0 Dysuria
CPT/HCPCS: 36415; 80053; 80061; 80156; 81001; 81003; 82306; 84443; 85025; 87086

== ENCOUNTER 2024-12-18 09:56 | Outpatient (AMB) | payer MEDICARE, SELFPAY ==
[2024-12-18 10:18] VITALS: BP 98/58; PULSE 49; TEMP 36.1; O2SAT 97; BMI 24.3
--- NOTE | 2024-12-18 10:18 | A.OFFPC_ITS ---
Vital Signs 12/18/24 10:18 12/18/24 11:03 Height 5 ft 5 in Weight 146 lb 4 oz BMI 24.3 BP 98/58 L 120/70 Blood Pressure Location Lt brachial Lt brachial Position Sitting Sitting Pulse 49 L Pulse Source Pulse Oximeter Temp 97.0 F Temp Source Temporal Artery Scan Pulse Oximetry (%) 97 Oxygen Delivery Method Room Air Intake Visit Reasons: trigeminal neuralgia,osteopenia Allergies cephalexin (From Keflex) Adverse Reaction (Unknown, Verified 12/18/24 10:50) Swelling Medication List - Last Reconciled 12/22/24 by Hermann Phillips MD bisacodyl (Dulcolax (bisacodyl)) 20 mg (4 x 5 mg) PO ONCE PRN 1 day carbamazepine (Tegretol) 200 mg PO BID cholecalciferol (vitamin D3) 50 mcg PO DAILY Grab bar As directed multivitamin 1 tab PO DAILY phytonadione (vit K1) (bulk) 100% (Vitamin K1) ea miscellaneous polyethylene glycol 3350 (Miralax) 238 grams PO ONCE pregabalin 150 mg PO BID 90 days [tumeric PO 2XD] zinc acetate 25 mg PO DAILY Tobacco use date assessed: 12/18/24 Fall risk assessment: 1 Fall in past year Last assessed Fall Risk: 12/18/24 Dental Screening Dental Screen Date: 12/18/24 Did you have a dental visit in the last 12 months?: Yes Did you have a dental problem in the last 6 months where you did not have access to dental care?: No Was dental information given to patient?: Patient has dentist HPI trigeminal neuralgia,osteopenia HPI Details Patient comes in today for her follow up visit States that she had a fall back in September 2024 and she suffered a hairline fracture in her L ankle and R wrist (subacute right triquetal fracture) as a result She was seen by Orthopedics then and was advised other than splinting for about 3 weeks followed by Occupational therapy, she does not need any other intervention including surgery Patient states that injuries have since resolved and occasional pain in her right wrist and left ankle, she has no other acute symptoms related to those States that she continues to experience recurrent sharp left-sided facial pain from her trigeminal neuralgia but states that her current medications (carbamazepine 200 mg BID and pregabalin 150 mg BID) helping to keep her pain under control She denies any dizziness Denies any chest pain, no increased shortness of breath No nausea/vomiting, no abdominal pain No change in bowel habits noted Needs her Pregabalin Rx refilled today She had her follow up labs done last week - to discuss her results [facility] Medical History Osteopenia Left breast mass Hearing impairment Allergic rhinitis Depression Trigeminal neuralgia of left side of face Surgical History History of cranioplasty History of ear surgery History of nasal septoplasty Family History Father No problems noted. Mother No problems noted. 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 1. Little interest or pleasure in doing things: several days 2. Feeling down, depressed, or hopeless: several days 3. Trouble falling or staying asleep, or sleeping too much: not at all 4. Feeling tired or having little energy: several days 5. Poor appetite or overeating: several days 6. Feeling bad about yourself - or that you are a failure or have let yourself or your family down: not at all 7. Trouble concentrating on things, such as reading the newspaper or watching television: several days 8. Moving or speaking so slowly that other people could have noticed. Or the opposite - being so fidgety or restless that you have been moving around a lot more than usual: not at all 9. Thoughts that you would be better off or of hurting yourself in some way: not at all Total score: 5 Depression Screening Interpretation: Positive Depression Screening Follow-up: Follow-up Visit Requested Depression Screening Done: Yes 66279 - PHQ-9 Billing: Yes Source: Developed by Drs. Favio Sawyer, Jesi Chauhan, Juan Jose Vega and colleagues, with an educational naveen from [employer]. Thrive Questionnaire Date Thrive assessed: 08/05/24 I am a: Patient What is your living situation today?: I choose not to answer this question Within the past 12 months, did the food you bought not last and you didn't have the money to get more?: I choose not to answer this question Within the past 12 months, did you worry whether your food would run out before you got money to buy more?: I choose not to answer this question Do you have trouble paying for medicines?: I choose not to answer this question Do you have trouble getting transportation to medical appointments?: I choose not to answer this question Do you have trouble paying your heating and electricity bill?: No Do you have trouble taking care of your child, family member or friend?: I choose not to answer this question Do you have trouble with day-to-day activities such as bathing, preparing meals, shopping, managing finances, etc.?: I choose not to answer this question Are you currently unemployed and looking for a job?: No Are you interested in more education?: I choose not to answer this question Please select the resources that you would like help with: None Currently or been in a relationship where the following occur: I choose not to answer THRIVE Score: 0 AUDIT C Alcohol Use Questionnaire (AUDIT-C) 1. How often do you have a drink containing alcohol?: Never 3. How often do you have six or more drinks on one occasion?: Never Total Score: 0 Score Reviewed/Action Taken: Yes BRITTANY-7 AMB Questionnaire BRITTANY-7 Date BRITTANY - 7 assessed: 08/06/24 Feeling nervous, anxious, or on edge: 0 = Not at all Not being able to stop or control worryin = Not at all Worrying too much about different things: 0 = Not at all Trouble relaxin = Not at all Being so restless that it is hard to sit still: 0 = Not at all Becoming easily annoyed or irritable: 0 = Not at all Feeling afraid as if something awful might happen: 0 = Not at all Total BRITTANY-7 score (0-4 normal; 5-9 mild; 10-14 moderate; 15-21 severe): 0 Source: Developed by Drs. Favio Sawyer, Jesi Chauhan, Juan Jose Vega and colleagues, with an educational naveen from [employer]. Review of Systems Const Denies chills, Denies fatigue, Denies fever(s) and Denies headache(s) ENT Denies dysphagia, Denies dizziness, Denies otalgia, Denies headache(s), Denies neck pain, Denies odynophagia and Denies sore throat Card Denies chest pain, Denies irregular heart rhythm, Denies palpitations and Denies dyspnea Resp Denies chest congestion, Denies cough and Denies dyspnea GI Denies abdominal pain, Denies constipation, Denies dysphagia, Denies heartburn, Denies diarrhea, Denies nausea, Denies odynophagia and Denies vomiting Denies difficulty voiding, Denies nocturia, Denies dysuria and Denies urinary urgency Musc Denies back pain, Denies arthralgias and Denies neck pain Skin/Breast Denies rash Neuro Details: (+) on and off sharp, jolting pains over the left side of her face Denies dizziness, Denies headache(s) and Denies paresthesias Psych Denies anxiety and Denies depression Endo Denies fatigue and Denies palpitations Alo/Lymph Denies easy bruising Physical exam (Primary Care) Vital Signs: Last Vital Signs Temp 97.0 F 12/18/24 10:18 Pulse 49 L 12/18/24 10:18 BP 120/70 12/18/24 11:03 Pulse Ox 97 12/18/24 10:18 Oxygen Delivery Method Room Air 12/18/24 10:18 BMI result Body Mass Index 24.3 Tobacco/Smoking Status: Tobacco use Status Tobacco use date assessed 12/18/24 12/18/24 10:23 Patient Tobacco Use Status Never used Tobacco 12/18/24 10:23 e-Cigarette/Vaping Use Never Used 12/18/24 10:23 PHQ-9: PHQ-9 Score PHQ-9: Total score 5 12/18/24 10:55 Depression Screening Interpretation: Positive Depression Screening Follow-up: Follow-up Visit Requested Thrive Assessment: Date of Thrive Assessment Date Thrive assessed 08/05/24 12/18/24 10:23 Currently or been in a relationship where the following occur: I choose not to answer Const General: no acute distress and alert HENMT Ears: TM's normal bilaterally and EAC's normal Throat: Yes posterior oropharynx normal and Yes tonsils normal (no TP congestion) Neck Neck: Yes no lymphadenopathy and Yes supple Thyroid: Thyroid normal Resp Auscultation: clear to auscultation bilaterally, no rales and no wheezes Cardio Rate: regular rate Rhythm: regular rhythm Heart sounds: no murmurs GI Palpation (GI): Soft to palpation and nontender Auscultation: normal bowel sounds General: Yes no CVA tenderness Back/Spine/Pelvis Back: no CVA tenderness Thoracic/Lumbar Spine: No lumbar spinal tenderness Skin Rashes: no rashes Extrem General: Yes no clubbing, cyanosis or edema Results Reviewed Results Reviewed: Laboratory Tests 08/13/21 12/12/24 12/12/24 07:26 11:08 11:13 WBC 3.9 L Hgb 12.9 D Hct 36.0 L D Plt Count 236 D Sodium 136 Potassium 4.2 Creatinine 0.66 Estimated GFR > 60 Fasting Glucose 80 Calcium 9.1 D AST 24 ALT 19 Alkaline Phosphatase 119 H Total Protein 6.4 L Triglycerides 40 51 Cholesterol 212 D 233 H LDL Cholesterol, Calc 129 146 H HDL Cholesterol 75 D 77 25-OH Vitamin D Total 79.2 TSH 1.17 Ur Specific [place] 1.015 Urine Protein Negative Urine Glucose (UA) Negative Urine Blood Negative Urine Nitrite Negative Ur Leukocyte Esterase Large (3+) H Carbamazepine 8.5 Coding Level of Care Code Est Pt Level 4 (56741) Diagnoses Trigeminal neuralgia of left side of face G50.0 Dyslipidemia E78.5 Allergic rhinitis, unspecified seasonality, unspecified trigger J30.9 Allergic rhinitis seasonality: unspecified Allergic rhinitis trigger: unspecified Primary osteoarthritis of right knee M17.11 Osteoarthritis type: primary Osteopenia, unspecified location M85.80 Osteopenia location: unspecified Depression, unspecified depression type F32.9 Depression Type: unspecified Additional Codes PHQ-9 - 60818 - PHQ-9 Billing: Yes ([id number]) Assessment & Plan Assessment & Plan (1) Trigeminal neuralgia of left side of face: Comment: S/P left Jannetta procedure CN V with methylmethacrylate cranioplasty (Dr. Alisa Pro) on 07/22/2019 Code(s): G50.0 - Trigeminal neuralgia Category: Medical Plan: S/P Jannetta procedure back in 2019 She was offered a trial of glycerol rhizotomy injection by Dr. Pro a few years ago, which patient declined States that she was doing well on Pregabalin 150 mg BID and Carbamazepine ER 400 mg BID but her Carbamazepine was changed to the IR formulation (Carbamazepine 200 mg BID) by Dr. Gastelum a few months ago She used to see Dr. Booker until he retired a few years ago, then started seeing Dr. Ott up until he retired last year and is now seeing Dr. Gastelum here at [facility] for neurology follow up (2) Dyslipidemia: Code(s): E78.5 - Hyperlipidemia, unspecified Category: Medical Plan: Results of her labs done last week reviewed and discussed with patient - have advised her that her cholesterol levels have increased from her previous numbers back in 2021, with her total cholesterol now at 233 mg/dL and LDL cholesterol at 146 mg/dL Reinforced low cholesterol diet Will have patient recheck her labs and fasting lipids in 4 months for follow-up (3) Allergic rhinitis: Code(s): J30.9 - Allergic rhinitis, unspecified Category: Medical Qualifiers: Allergic rhinitis seasonality: unspecified Allergic rhinitis trigger: unspecified Qualified Code(s): J30.9 - Allergic rhinitis, unspecified Plan: Continue OTC Loratadine 10 mg QD PRN and/or OTC Fluticasone 50 mcg nasal spray QD PRN (4) Osteoarthritis of right knee: Code(s): M17.11 - Unilateral primary osteoarthritis, right knee Category: Medical Qualifiers: Osteoarthritis type: primary Qualified Code(s): M17.11 - Unilateral primary osteoarthritis, right knee Plan: Right knee x-rays done last year revealed no acute fracture but (+) mild osteoarthritis changes in the right knee She was then referred to physical therapy, which she states helped with her knee symptoms (5) Osteopenia: Code(s): M85.80 - Other specified disorders of bone density and structure, unspecified site Category: Medical Qualifiers: Osteopenia location: unspecified Qualified Code(s): M85.80 - Other specified disorders of bone density and structure, unspecified site Plan: Repeat BMD done in March 2024 revealed (+) osteopenia based on the lowest T- score value of -1.2 in the femoral neck - results are mostly unchanged from her previous BMD scan in September 2021 Patient is again encouraged to continue to stay active and exercise regularly and to continue taking her daily Calcium and Vitamin D supplements Will recheck her BMD again in 2 to 3 years for follow up (6) Depression: Code(s): F32.9 - Major depressive disorder, single episode, unspecified Category: Medical Qualifiers: Depression Type: unspecified Qualified Code(s): F32.9 - Major depressive disorder, single episode, unspecified Plan: Resolved/controlled - patient used to take Citalopram but self discontinued her medication last year States that she has been doing well since and does not have any problems/issues with depression currently Plan Follow up in 4 months Orders: Orders Complete Blood Count Auto Diff 4 Months D64.9 - Anemia, unspecified Comprehensive [place]. Panel Fast 4 Months E78.00 - Pure hypercholesterolemia, unspecified Lipid Panel 4 Months E78.00 - Pure hypercholesterolemia, unspecified Medications: Refilled pregabalin 150 mg PO BID 180 caps 0RF 90 days
[2024-12-18 11:03] VITALS: BP 120/70
--- OUTSIDE RECORDS SUMMARY | 2024-12-18 11:04 | XMS_ITS | Clinical Summary ---
Author Organization [facility] Address [id number] [place] [id number] Care Team Providers Care Newspaper Managing Editor Name Role Phone Hermann Phillips MD Primary [...] Last Done Comments Breast Cancer Screening 1955 Colorectal Cancer Screening: Colonoscopy 1955 DTaP,Tdap,and Td Vaccines (1 - Tdap) 1976 Pneumococcal Vaccine: 50+ Ye ars (1 of 1 - PCV) 05/19/2007 Zoster Vaccines (1 of 2) 05/19/2007 Hepatitis C Screening 02/20/2022 Osteoporosis Screening (Bone Density Screening) 02/20/2022 Social Influencers of Health Screening 02/20/2022 Falls Risk Assessment 2022 Depression Screening 03/20/2024 COVID-19 Vaccine ( - 2023-2 5 season) 2024 Influenza Vaccine (#1) 2024 RSV Immunization Adult [...] age to complete this topic Care Teams Newspaper Managing Editor Relationship Specialty Start Date End Date Hermann Phillips MD [address] [place] [address] [address] [place], [place] PCP - General Internal Medicine 04/03/19
== END 2024-12-18 11:07 | disposition home or self-care (01) ==
LOC: HO.HMCH 09:57
PROVIDERS: PCP Internal Medicine; Visit Provider Internal Medicine
DX: G50.0 Trigeminal neuralgia (principal); E78.5 Hyperlipidemia, unspecified; J30.9 Allergic rhinitis, unspecified; M17.11 Unilateral primary osteoarthritis, right knee; M85.80 Other specified disorders of bone density and structure, unspecified site; F32.9 Major depressive disorder, single episode, unspecified

== ENCOUNTER → 2024-12-18 09:56 | Outpatient (BNVA) | payer MEDICARE, SELFPAY | PROVIDERS: PCP Internal Medicine; Visit Provider Internal Medicine | DX: M25.531 Pain in right wrist (principal); M25.572 Pain in left ankle and joints of left foot; G50.0 Trigeminal neuralgia; J30.9 Allergic rhinitis, unspecified; M17.11 Unilateral primary osteoarthritis, right knee; M85.80 Other specified disorders of bone density and structure, unspecified site; F32.9 Major depressive disorder, single episode, unspecified; D64.9 Anemia, unspecified; E78.00 Pure hypercholesterolemia, unspecified | CPT/HCPCS: 96127; 99212 ==

== ENCOUNTER 2025-01-28 10:55 | Day surgery (SDC) | payer MEDICARE, SELFPAY ==
--- NOTE | 2025-01-23 11:42 | HO.ANESPROP2 ---
Documented by User: Jennifer England NP 01/23/25 11:45 HPI - Anesthesia Eval Consult details Narrative: 69 yr old female for colonoscopy H/O trigeminal neuralgia: on Carbamazepine PMFSH Active Problems Active Problems: All Active Problems (Updated 08/06/24 @ 13:03 by Hermann Phillips MD) Left breast mass (Acute) Encounter for well woman exam with routine gynecological exam (Acute) Pulsatile tinnitus of left ear (Acute) Aneurysm of carotid artery (Acute) Breast cancer screening (Acute) Colon cancer screening (Acute) Osteoarthritis of right knee (Acute) Cervical cancer screening (Acute) Pain in right knee (Acute) Pain in right upper arm (Acute) Left knee pain (Acute) Drug-induced hypersensitivity reaction (Acute) Allergic reaction (Acute) Second degree burn of left arm (Acute) Cellulitis of left arm (Acute) Dyslipidemia (Acute) Osteopenia (Acute) Keratosis (Acute) Annual physical exam (Acute) Chest pain (Acute) Hearing impairment (Acute) Otosclerosis (Acute) Nasal congestion (Acute) Viral upper respiratory tract infection (Acute) Allergic rhinitis (Acute) Depression (Acute) Trigeminal neuralgia of left side of face (Acute) Past Medical History Medical History Carotid artery aneurysm Dyslipidemia Arthritis Osteopenia Left breast mass Hearing impairment Allergic rhinitis Depression Trigeminal neuralgia of left side of face Family History Family History Father No problems noted. Mother No problems noted. Surgical History Surgical History H/O colonoscopy History of cranioplasty History of ear surgery History of nasal septoplasty Social History Social History Household Members: Other Household Members Other:: friends Housing: Apartment Do you presently have visiting nurse or other home services: No Alcohol intake: never Patient Tobacco Use Status: Never used Tobacco e-Cigarette/Vaping Use: Never Used Second Hand Smoke Exposure: Yes Use of substances other than those prescribed or required for medical reasons: No Advance Directives: No Advance Directives Information Provided: Yes service: No Current occupational status: employed 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 Cognitive needs: No Hearing needs: No Vision needs: Yes Meds Allergies Allergy/AdvReac Type Severity Reaction Status Date / Time cephalexin (From Keflex) AdvReac Unknown Swelling Verified 12/18/24 10:50 Home Medications ?Medication ?Instructions ?Recorded ?Confirmed ?Last Taken ?Type cholecalciferol (vitamin D3) 50 50 mcg PO DAILY 03/30/24 12/18/24 03/30/24 History mcg (2,000 unit) tablet multivitamin 1 tab PO DAILY 03/30/24 12/18/24 03/30/24 History phytonadione (vit K1) (bulk) 100 % ea miscellaneous 06/18/24 12/18/24 Unknown History liquid (Vitamin K1) zinc acetate 25 mg (zinc) capsule 25 mg PO DAILY 06/18/24 12/18/24 Unknown History carbamazepine 200 mg tablet 200 mg PO BID 12/22/24 01/24/25 Unknown History (Tegretol) Exam Pertinent Lab Results Pertinent Lab Results: Laboratory Tests 12/12/24 11:13 WBC 3.9 L RBC 3.95 L D Hgb 12.9 D Hct 36.0 L D Plt Count 236 D Sodium 136 Potassium 4.2 Chloride 100 Carbon Dioxide 31 H BUN 9 Creatinine 0.66 Narrative Narrative: Head CTA 07/2024 Findings: CT head without contrast: No acute intracranial hemorrhage. No midline shift or hydrocephalus. Mild white matter lesions likely due to small-vessel ischemic disease. Mild/minimal volume loss is generalized. Mild mucosal thickening of the paranasal sinuses. Mild nasal bone irregularities are old/chronic. Small right mastoid effusion. No acute skull fracture. Documented by User: Mazin Suarez MD 01/28/25 11:37 [facility] Past Medical History Medical History Carotid artery aneurysm Dyslipidemia Arthritis Osteopenia Left breast mass Hearing impairment Allergic rhinitis Depression Trigeminal neuralgia of left side of face Functional capacity: independent ambulation Family History Family History Father No problems noted. Mother No problems noted. Family history of problems with anesthesia: No Surgical History Surgical History H/O colonoscopy History of cranioplasty History of ear surgery History of nasal septoplasty History of Problems with Anesthesia: No Social History Social History Household Members: Other Household Members Other:: friends Housing: Apartment Do you presently have visiting nurse or other home services: No Alcohol intake: never Patient Tobacco Use Status: Never used Tobacco e-Cigarette/Vaping Use: Never Used Second Hand Smoke Exposure: Yes Use of substances other than those prescribed or required for medical reasons: No Advance Directives: No Advance Directives Information Provided: Yes service: No Current occupational status: employed 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 Cognitive needs: No Hearing needs: No Vision needs: Yes Meds Allergies Allergy/AdvReac Type Severity Reaction Status Date / Time cephalexin (From Keflex) AdvReac Unknown Swelling Verified 12/18/24 10:50 Home Medications ?Medication ?Instructions ?Recorded ?Confirmed ?Last Taken ?Type cholecalciferol (vitamin D3) 50 50 mcg PO DAILY 03/30/24 12/18/24 03/30/24 History mcg (2,000 unit) tablet multivitamin 1 tab PO DAILY 03/30/24 12/18/24 03/30/24 History phytonadione (vit K1) (bulk) 100 % ea miscellaneous 06/18/24 12/18/24 Unknown History liquid (Vitamin K1) zinc acetate 25 mg (zinc) capsule 25 mg PO DAILY 06/18/24 12/18/24 Unknown History carbamazepine 200 mg tablet 200 mg PO BID 12/22/24 01/24/25 Unknown History (Tegretol) Exam Airway Mallampati Class: II TM Dist: >3cm Loose/Missing/Broken Teeth: No Heart: normal Lungs: normal Other: normal Assessment and Plan Assessment Anesthesia Assessment: Anesthesia Plan Discussed and Chart Reviewed Final Anesthetic Review Family History of Problems with Anesthesia: No History of Problems with Anesthesia: No NPO: Yes ASA Class: II Final Preanesthetic Review: No Changes in Pt Med Stat, Meds/Allgs Chart Reviewed, Consent Obtained/Reviewed and Anes Risks/Benef Reviewed Patient Risk: Low Procedure Risk: Low Anesthetic Plan Anesthetic Plan: MAC: Disposition: Standard PACU
[2025-01-24 09:50] VITALS: BMI 25.3
[2025-01-28 11:07] VITALS: BMI 24.6
[2025-01-28 11:19] VITALS: BP 128/57; PULSE 51; RESP 16; TEMP 36.2; O2SAT 100
[2025-01-28] MEDS: Lactated Ringers 1,000 ML 100 ML IVCONT (11:22)
--- NOTE | 2025-01-28 11:25 | P.HPSUR_ITS ---
Pre-Procedural Eval Section A - 24 Hr Update-Section A only Date of Service: 01/28/25 Section B - Complete if H&P > 30 days Chief Complaint: screening Details of Present Illness: Osteopenia Left breast mass Hearing impairment Allergic rhinitis Depression Trigeminal neuralgia of left side of face Surgical History History of cranioplasty History of ear surgery History of nasal septoplasty Present Medications: see Short Stay Collaborative assessment Allergies: Allergies Allergy/AdvReac Type Severity Reaction Status Date / Time cephalexin (From Keflex) AdvReac Unknown Swelling Verified 12/18/24 10:50 Review of Systems Review of Systems Comment: Ten point ROS negative Exam Exam Comment: Gen appear: No acute distress HEENT: no icterus Chest: No overt resp distress Abd: soft, nontender, nondistended Psych: Stable affect, answering questions appropriately Neuro: A/Ox3 noted to move all extremities spontaneously Ext: no peripheral edema Plan Diagnosis/Plan: Unchanged I have reviewed the history and physical and performed a pertinent physical examination on my patient. No changes have occurred unless specified. Time Spent With Patient Time: Total time managing care of this patient today ____ minutes.
[2025-01-28 12:10] VITALS: BP 110/55; PULSE 70; RESP 16; TEMP 36.8; O2SAT 98
--- NOTE | 2025-01-28 12:16 | P.OPN-COLO_ITS ---
Colonoscopy Operative Note Operative Note Date of Service: 01/28/25 Narrative: Procedure: Colonoscopy Indication: Screening Endoscopist: Joana Renee MD Anesthesia Provider: Dr Suarez Anesthesia type: MAC Instrument: Olympus [id number]-[id number] Consent: Indication, risks vs benefits, and alternatives were discussed with the patient who gave written informed consent to proceed. EKG, pulse, pulse oximetry and blood pressure were monitored throughout the procedure. Please see anesthesia flowsheet. Procedure: The patient was brought to the procedure room and placed in the left lateral decubitus position. IV medications were administered by the anesthesia provider in attendance. A digital rectal exam was performed which was normal. A distal attachment cap was affixed to the tip of the colonoscope which was then inserted through the anus and advanced through the colon to the cecum at 75 cm,and terminal ileum. Appendiceal orifice and ileocecal valve were identified. Mucosa was carefully examined under high definition white light as the instrument was slowly withdrawn in a retrograde panoramic fashion. Retroflexion was performed in rectum. The procedure was not difficult. There were no immediate obvious complications. The quality of the prep was BBPS: 3+2+3 = adequate Withdrawal time 14 minutes. Limitations: No limitations. Findings: Mucosa: Normal to cecum and terminal ileum. Protruding lesions: * 1 sessile polyp of size 2 mm in descending colon. Cold snare polypectomy was performed. The polyp was completely removed and retrieved. * Medium internal hemorrhoids without stigmata of recent bleeding. Excavated lesions: * Rare diverticula in sigmoid colon. Impression: 1. Normal colon and terminal ileum 1mucosa 2. Total of 1 polyp removed 3. Diverticulosis 4. Hemorrhoids Recommendations: - Follow path results. - Repeat colonoscopy in 7-10 years if polyp is an adenoma.
[2025-01-28 12:25] VITALS: BP 112/49; PULSE 52; RESP 14; TEMP 36.1; O2SAT 97
== END 2025-01-28 13:13 | disposition home or self-care (01) ==
PROVIDERS: PCP Internal Medicine; Visit Provider Internal Medicine
PROC: 0DJD8ZZ Inspection of Lower Intestinal Tract, Via Natural or Artificial Opening Endoscopic (ICD-10-PCS; CPT 45378; principal; 2025-01-28 13:30)
DX: Z12.11 Encounter for screening for malignant neoplasm of colon (principal); K64.8 Other hemorrhoids; K57.30 Diverticulosis of large intestine without perforation or abscess without bleeding; D12.4 Benign neoplasm of descending colon
CPT/HCPCS: 45385; 88305; J2003; J2704; J3010

== ENCOUNTER → 2025-01-28 10:55 | Outpatient (BNV) | payer MEDICARE, SELFPAY | PROVIDERS: PCP Internal Medicine; Visit Provider Internal Medicine | DX: Z12.11 Encounter for screening for malignant neoplasm of colon (principal); K63.5 Polyp of colon; K57.30 Diverticulosis of large intestine without perforation or abscess without bleeding; K64.8 Other hemorrhoids | CPT/HCPCS: 45385 ==

== ENCOUNTER 2025-02-05 10:08 | Outpatient (AMB) | payer MEDICARE, SELFPAY ==
--- NOTE | 2025-02-05 10:11 | A.OFFVIS_ITS ---
Intake Visit Reasons: 6M Allergies cephalexin (From Keflex) Adverse Reaction (Unknown, Verified 12/18/24 10:50) Swelling HPI Comments Details: 69 yo LH woman with facial pain. She developed left sided pain in 2015. It was like electric shocks on left side of the face but most of the pain was on top or in the middle of head. It was continuous pain. A diagnosis of trigeminal neuralgia was made and she was given carbamazepine and gabapentin. IT helped with pain but she felt like a zombie . In 2020, she had the surgical procedure done by Dr. Pro at [facility]. After the procedure, the pain was gone and she stopped taking the meds. Unfortunately, pain came back after about 11 months and now it was more in the face than head. It was more so in the upper lip area. she presents for a follow-up for her trigeminal neuralgia, which is controlled with medication. She reports adherence to her medications, taking pregabalin 150 mg twice a day and carbamazepine 100 mg, four tablets twice a day. A previous trial of carbamazepine 200 mg was discontinued due to dizziness. She denies any leg swelling. [facility] Medical History Carotid artery aneurysm Dyslipidemia Arthritis Osteopenia Left breast mass Hearing impairment Allergic rhinitis Depression Trigeminal neuralgia of left side of face Surgical History H/O colonoscopy History of cranioplasty History of ear surgery History of nasal septoplasty Family History Father No problems noted. Mother No problems noted. 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 - Neurological: Reports a history of dizziness with a higher dose of carbamazepine. - Cardiovascular: Denies leg swelling. Physical Exam Neuro Other: Mental Status: Alert and oriented to person, place, and time. Normal attention. Normal spontaneous speech, fluency, and comprehension. No obvious issues with mood and memory. Affect is appropriate. Cranial Nerves: CN II: Visual yan full to confrontation, visual acuity intact. CN III, IV, : Pupils equal, round, reactive to light and accommodation. Extraocular movements are normal. CN V: Facial sensation is normal. CN VII: Facial movements symmetrical. CN VIII: Hearing intact to bedside conversation is normal. CN IX, X: Palate elevates symmetrically. CN XI: Shoulder shrug and head turn symmetrical. CN XII: Tongue midline without atrophy or fasciculations. Extrapyramidal: Full facial expressions and blinking. No rigidity. Movements are appropriate with no tremor or abnormality. Speech: Normal; no dysarthria or tremor. Assessment & Plan Assessment & Plan (1) Trigeminal neuralgia of left side of face: Comment: S/P left Jannetta procedure CN V with methylmethacrylate cranioplasty (Dr. Alisa Pro) on 07/22/2019 Code(s): G50.0 - Trigeminal neuralgia Category: Medical (2) Cerebral aneurysm: Comment: CTA brain at [facility] in July 2024: 1x2x1 mm L A2 aneurysm, multifocal ?stenosis or spasm of R MCA MRI brain WWO at [facility] in Feb 2024: s/p Jannetta procedure, mild MVD MRA/MRV at [facility] in Feb 2024: 4mm L and 3mm R cavernous ICA aneurysms Code(s): I67.1 - Cerebral aneurysm, nonruptured Category: Medical Plan Impression: 1. Left trigeminal neuralgia control with medicines 2. Tiny cerebral aneurysm not requiring any follow-up or intervention at this time Recommendations: 1. Carbamazepine extended release capsule 100 mg, for twice a day 2. Pregabalin 150 mg 1 twice a day Medications: New carbamazepine ER (Carbatrol) 400 mg (4 x 100 mg) PO BID 720 caps 1RF 90 days Refilled pregabalin 150 mg PO BID 180 caps 1RF 90 days Coding Level of Care Code Est Pt Level 3 (19453) Diagnoses Trigeminal neuralgia of left side of face G50.0 Cerebral aneurysm I67.1
--- OUTSIDE RECORDS SUMMARY | 2025-02-05 19:08 | XMS_ITS | Data Portability ---
Author Organization [place] - [facility], Allergy Address [address] [address] Care Team Providers Care Custom Seamstress Name Role Phone HANY DOYLE Primary Care Provider [phone] Assessment Encounter Date Assessment Date Assessment LastModified [...] CONTRAST pulsatile tinnitus left ear 2023 024 [facility] ([facility] [address] [place], [address], 4 17:21:40 MR, angiogram, head, w/o contrast - pulsatile tinnitus 2023 024 [email or web address] [facility] ([facility]), [address] [place], [address], 15:06:25 Medication Orders None recorded. Patient TargetsNo targets recorded. Patient InstructionsNo instructions recorded. Reason for Referral None Reported. Results Created Date Observation Date Name Description Value Unit Range Abnormal Flag Note LastModifiedBy Organization Detail LastModifiedTime 02/01/20 audio gram No observ ation record ed. BARCODE Not Available 2023 10:43:31 02/01/2001/19/2023 audio gram No observ ation record ed. [email or web address] [facility] [address], [address], 02/02/2024 09:13:20 02/22/20 24 02/20/2024 MRI, brain + inter nal audit ory canal , w/wo contr ast No observ ation record ed. [email or web address] [facility] ([facility]) [address] [place], [address], 03/01/2024 15:42:40 03/08/20 24 03/06/2024 MR, angio gram, head, w/o contr ast No observ ation record ed. [email or web address] [facility] [address] [place], [address], 03/25/2024 16:44:39 Result Notes None recorded. Problems Name Problem SNOMED Code Status Onset Date Resolution Date Notes Provider Name and Address Organization Details Recorded Time Otosclero sis 96341799 Active 2015 Unspecifi ed otosclero sis, right ear; Note: Date Diagnosed : 04/22/2015 3:08 PM (H80.91) Not Available [facility] 4 02:19:11 Sensorine ural hearing loss of bilateral ears 510614335 Active 2017 Sensorine ural hearing loss, bilateral ; Note: Date Diagnosed : 8 10:58 AM (H90.3) Not Available [facility] 4 02:18:15 Nasal congestio n 57821636 Active 2021 Nasal congestio n; Note: Date Diagnosed : 09/09/2021 10:34 AM (R09.81) Not Available [facility] 4 02:19:10 Disorder of nasal sinus 5866665 Active 2021 Other specified disorders of nose and nasal sinuses; Note: Date Diagnosed : 10/27/2021 11:29 AM (J34.89) Not Available [facility] 4 02:18:24 Disorder of the nose 59319505 Active 2021 Other specified disorders of nose and nasal sinuses; Note: Date Diagnosed : 10/27/2021 11:29 AM (J34.89) Not Available [facility] 4 02:18:24 Exostosis of left external ear canal 09755144129 30129 Active 2022 Exostosis of left external canal; Note: Date Diagnosed : 01/19/2023 2:20 PM (H61.812) Not Available [facility] 4 02:19:16 Bilateral subjectiv e pulsatile tinnitus of ears 69838198363 19773 Active 2023 Solange devlin [place] - [facility] 4 15:23:56 Problem Notes None recorded. Procedures Surgical History Date Name Laterality Status Provider Name and Address Organization Details Recorded Time 01/31/2024 Comp Audio with Tymps - 30323 & 35168 completed RICK MEDRANO [place], [facility] [address] [place] [address], [place], [address], [facility] - [facility] 01/31/2024 10:49:50 Imaging Results None recorded. Procedure Notes None recorded. Medical Equipment None Reported. Allergies No known drug allergies Medications Name Sig Start Date Stop Date Status Note LastModified by Organization Details LastModified Time carbamaze pine ER 400 mg tablet,ex tended release,1 2 hr 11/13 /2024 completed Medicati on ID: [id number] B rand Name: carbamaz epine Se nd Method: E-Prescr ibed Sub s Allowed: subs OK Medic ationGen ericName : carbamaz epine Not Available Not Available Not Available carbamaze pine 200 mg tablet 09/09 completed Medicati on ID: [id number] D uration Value: 30 Brand Name: carbamaz epine Se nd Method: E-Prescr ibed Sub s Allowed: subs OK Medic ationGen ericName : carbamaz epine Not Available Not Available Not Available fluticaso ne propionat e 50 mcg/actua tion nasal spray,rodrigo pension 01/30 completed Medicati on ID: [id number] B rand Name: fluticas one propiona te [...] pine ER 100 mg capsule,e xtended release [id number] TAKE FOUR CAPSULES BY MOUTH TWICE [...] Updated DateTime 01/31/2024 167.64 cm 25 kg/m2 53849.82 g Claudia Solorio [facility] 01/31/2024 11:03:57 Social History None recorded. Functional Status None recorded. Mental Status None recorded. Family History Nothing Reported. Medical History No medical history recorded. Gynecological HistoryNo gynecological history recorded. Obstetrics History GPAL:G 0 P 0 0 0 0 Past Encounters Encounter ID Performer Location Encounter Start Date Encounter Closed Date Diagnosis/Indication Diagnosis SNOMED-CT Code Diagnosis ICD10 Code Diagnosis IMO Codes Diagnosis Note [id number] SOLANGE AGUIAR PA-C [facility] [address] [address] 01/31/2024 10:13:43 01/31/2024 11:27:07 Sensorineural hearing loss of bilateral ears 125618006 H90.3 Audiologic al evaluation results: Right ear: Normal/ borderline normal hearing thru 2000Hz sloping to a mild to severe SNHL with excellent word recognitio n. Left ear: Normal hearing thru 2000Hz sloping to a mild to severe SNHL with excellent word recognitio n. Tympanomet ry: Right Ear:Type A Left Ear:Type A Bilateral subjective pulsatile tinnitus of ears 4289791221 362645 H93.A3 Health Concerns Section Related Observation LastModified by Organization Detai ls LastModified Time None Recorded Concern Status LastModified by Organization Details LastModified Time None Recorded Advance Directives Directive None Recorded Payers Insurance Date Sequence Insurance Name Policy Number Policy Gonzalez Covered Member ID Gonzalez Member ID Guarantor Name 01/31/2024 1 [facility] - DOS ON OR AFTER 2022 - MEDICARE ADVANTAGE [place] (MEDICARE REPLACEMENT/AD VANTAGE - PPO) Valerie C Mendiola [id number] Valerie C Mendiola 01/31/2024 1 [place] [facility] Valerie C Mendiola [id number] Valerie C Mendiola Notes Date Note Type Note Provider Name and Address Organization Details Recorded Time 01/31/2024 text/html ROS as noted in the HPI Patient with history of right otosclerosis with [...] surgeries, nor lifestyle changes. DARYN STARK MD [address] [place] [address], [place], [address], [facility] - [facility] 01/31/2024 16:41:43 OBGyn Episode No OBEpisode recorded.
--- OUTSIDE RECORDS SUMMARY | 2025-02-05 19:08 | XMS_ITS | Clinical Summary ---
Author Organization [facility] Address [address] [place] [address] Care Team Providers Care Sand Hauler Name Role Phone Hermann Phillips MD Primary [...] Assessment 2022 Depression Screening 03/20/2024 COVID-19 Vaccine (1 - 2024-2 6 season) 2024 Influenza Vaccine (#1) 2024 RSV [...] age to complete this topic Care Teams Sand Hauler Relationship Specialty Start Date End Date Hermann Phillips MD [address] [place] [address] Dr [address] [place], [place] PCP - General Internal Medicine 04/03/19
== END 2025-02-05 10:26 | disposition home or self-care (01) ==
LOC: HO.HSM 10:08
PROVIDERS: PCP Internal Medicine; Referring Provider Internal Medicine; Visit Provider Psychiatry & Neurology Neurology
DX: G50.0 Trigeminal neuralgia (principal); I67.1 Cerebral aneurysm, nonruptured
CPT/HCPCS: 99213

== ENCOUNTER → 2025-02-05 10:08 | Outpatient (BNVA) | payer MEDICARE, SELFPAY | PROVIDERS: PCP Internal Medicine; Referring Provider Internal Medicine; Visit Provider Psychiatry & Neurology Neurology | DX: G50.0 Trigeminal neuralgia (principal); I67.1 Cerebral aneurysm, nonruptured | CPT/HCPCS: 99212 ==

== ENCOUNTER 2025-02-07 08:58 | Outpatient (AMB) | payer MEDICARE, SELFPAY ==
[2025-02-07 09:00] VITALS: BP 106/64; PULSE 50; O2SAT 99; BMI 24.4
--- NOTE | 2025-02-07 09:00 | A.OFFPC_ITS ---
Vital Signs 02/07/25 09:00 Height 5 ft 5 in Weight 146 lb 8 oz BMI 24.4 BP 106/64 Blood Pressure Location Lt brachial Position Sitting Pulse 50 Pulse Source Pulse Oximeter Pulse Oximetry (%) 99 Oxygen Delivery Method Room Air Intake Visit Reasons: physical Feed Management Advisor Required: No Accompanied by: Self / Same As Patient Allergies cephalexin (From Keflex) Adverse Reaction (Unknown, Verified 02/07/25 09:33) Swelling Medication List - Last Reconciled 02/07/25 by Hermann Phillips MD carbamazepine ER (Carbatrol) 400 mg (4 x 100 mg) PO BID 90 days cholecalciferol (vitamin D3) 50 mcg PO DAILY Grab bar As directed multivitamin 1 tab PO DAILY phytonadione (vit K1) (bulk) 100% (Vitamin K1) ea miscellaneous pregabalin 150 mg PO BID 90 days zinc acetate 25 mg PO DAILY Tobacco use date assessed: 02/07/25 Fall risk assessment: 1 Fall in past year Last assessed Fall Risk: 02/07/25 Dental Screening Dental Screen Date: 02/07/25 Did you have a dental visit in the last 12 months?: Yes Did you have a dental problem in the last 6 months where you did not have access to dental care?: No Was dental information given to patient?: Patient has dentist HPI physical HPI Details Patient comes in today for her annual physical examination States that she feels okay She denies any headaches or dizziness Denies any chest pains, no SOB No nausea/vomiting, no abdominal pain No change in bowel habits noted Denies any acute urinary symptoms She is currently up-to-date with her cancer screenings She just had her screening colonoscopy done about 2 weeks ago on 01/28/2025 - (+) tubular adenoma and she is recommended for a repeat colonoscopy in 5 to 7 years She is due and scheduled for her annual mammogram in March 2025 and for her yearly gynecology exam and pap smear in June 2025 She had her BMD done back in March 2024 - (+) osteopenia in the left femoral neck - FRAX score is 9.7% for a major osteoporotic fracture and 1.2% for hip fracture She had her routine labs done back in November 2024 and these were already discussed with her at her last follow up appointment early last month [facility] Medical History Carotid artery aneurysm Dyslipidemia Arthritis Osteopenia Left breast mass Hearing impairment Allergic rhinitis Depression Trigeminal neuralgia of left side of face Surgical History (Updated 02/07/25 @ 09:30 by Hermann Phillips MD) H/O colonoscopy History of cranioplasty History of ear surgery History of nasal septoplasty Family History Father No problems noted. Mother No problems noted. 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 1. Little interest or pleasure in doing things: several days 2. Feeling down, depressed, or hopeless: several days 3. Trouble falling or staying asleep, or sleeping too much: not at all 4. Feeling tired or having little energy: several days 5. Poor appetite or overeating: several days 6. Feeling bad about yourself - or that you are a failure or have let yourself or your family down: not at all 7. Trouble concentrating on things, such as reading the newspaper or watching television: several days 8. Moving or speaking so slowly that other people could have noticed. Or the opposite - being so fidgety or restless that you have been moving around a lot more than usual: not at all 9. Thoughts that you would be better off or of hurting yourself in some way: not at all Total score: 5 Depression Screening Interpretation: Positive Depression Screening Follow-up: Existing condition and Declines treatment Depression Screening Done: Yes 76354 - PHQ-9 Billing: Yes Source: Developed by Drs. Favio Sawyer, Jesi Chauhan, Juan Jose Vega and colleagues, with an educational naveen from [employer]. Thrive Questionnaire Date Thrive assessed: 02/07/25 I am a: Patient What is your living situation today?: I choose not to answer this question Within the past 12 months, did the food you bought not last and you didn't have the money to get more?: I choose not to answer this question Within the past 12 months, did you worry whether your food would run out before you got money to buy more?: I choose not to answer this question Do you have trouble paying for medicines?: I choose not to answer this question Do you have trouble getting transportation to medical appointments?: I choose not to answer this question Do you have trouble paying your heating and electricity bill?: No Do you have trouble taking care of your child, family member or friend?: I choose not to answer this question Do you have trouble with day-to-day activities such as bathing, preparing meals, shopping, managing finances, etc.?: I choose not to answer this question Are you currently unemployed and looking for a job?: No Are you interested in more education?: I choose not to answer this question Please select the resources that you would like help with: None Currently or been in a relationship where the following occur: I choose not to answer THRIVE Score: 0 AUDIT C Alcohol Use Questionnaire (AUDIT-C) 1. How often do you have a drink containing alcohol?: Never 3. How often do you have six or more drinks on one occasion?: Never Total Score: 0 Score Reviewed/Action Taken: Yes BRITTANY-7 AMB Questionnaire BRITTANY-7 Date BRITTANY - 7 assessed: 02/07/25 Feeling nervous, anxious, or on edge: 0 = Not at all Not being able to stop or control worryin = Not at all Worrying too much about different things: 0 = Not at all Trouble relaxin = Not at all Being so restless that it is hard to sit still: 0 = Not at all Becoming easily annoyed or irritable: 0 = Not at all Feeling afraid as if something awful might happen: 0 = Not at all Total BRITTANY-7 score (0-4 normal; 5-9 mild; 10-14 moderate; 15-21 severe): 0 Source: Developed by Drs. Favio Sawyer, Jesi Chauhan, Juan Jose Vega and colleagues, with an educational naveen from [employer]. Review of Systems Const Details: Patient reports feeling somewhat giddy for a while at times after taking her Carbamazepine Denies chills, Denies fatigue, Denies fever(s) and Denies headache(s) Eyes Denies blurry vision, Denies change in vision, Denies irritation and Denies itchy eyes ENT Denies dysphagia, Denies dizziness, Denies otalgia, Denies headache(s), Denies nasal congestion, Denies neck pain, Denies odynophagia and Denies sore throat Card Denies chest pain, Denies irregular heart rhythm, Denies palpitations and Denies dyspnea Resp Denies chest congestion, Denies cough, Denies dyspnea and Denies wheezing GI Denies abdominal pain, Denies bloating, Denies constipation, Denies dysphagia, Denies heartburn, Denies diarrhea, Denies nausea, Denies odynophagia and Denies vomiting Denies difficulty voiding, Denies nocturia, Denies dysuria and Denies urinary urgency Musc Denies back pain, Denies arthralgias, Denies joint swelling, Denies muscle weakness and Denies neck pain Skin/Breast Denies lesions and Denies rash Neuro Details: (+) on and off sharp, jolting pains over the left side of her face Denies dizziness, Denies headache(s) and Denies paresthesias Psych Denies anxiety and Denies depression Endo Denies fatigue and Denies palpitations Alo/Lymph Denies easy bruising Aller/Immun Denies itchy eyes and Denies wheezing Physical exam (Primary Care) Vital Signs: Last Vital Signs Pulse 50 02/07/25 09:00 BP 106/64 02/07/25 09:00 Pulse Ox 99 02/07/25 09:00 Oxygen Delivery Method Room Air 02/07/25 09:00 BMI result Body Mass Index 24.4 Tobacco/Smoking Status: Tobacco use Status Tobacco use date assessed 02/07/25 02/07/25 09:05 Patient Tobacco Use Status Never used Tobacco 02/07/25 09:05 e-Cigarette/Vaping Use Never Used 02/07/25 09:05 PHQ-9: PHQ-9 Score PHQ-9: Total score 5 02/07/25 09:05 Depression Screening Interpretation: Positive Depression Screening Follow-up: Existing condition and Declines treatment Thrive Assessment: Date of Thrive Assessment Date Thrive assessed 02/07/25 02/07/25 09:05 Currently or been in a relationship where the following occur: I choose not to answer Const General: no acute distress and alert Orientation/consciousness: patient oriented x3 HENMT Head: Yes normocephalic and Yes atraumatic Ears: TM's normal bilaterally and EAC's normal General nose exam: No nasal discharge present Face and sinus: Yes normal facial exam and Yes sinuses nontender Teeth and gingiva: dentition normal Throat: Yes posterior oropharynx normal and Yes tonsils normal (no TP congestion) Eyes Eyelids: Yes eyelids normal Conjunctivae: conjunctivae normal Pupils: Equal, round and reactive pupils present EOM: EOMs intact bilaterally Neck Neck: Yes supple and No lymphadenopathy Thyroid: Thyroid normal Resp Auscultation: clear to auscultation bilaterally, no rales and no wheezes Cardio Rate: regular rate Rhythm: regular rhythm Heart sounds: no murmurs GI Palpation (GI): Soft to palpation and nontender Auscultation: normal bowel sounds General: Yes no CVA tenderness Back/Spine/Pelvis Back: no CVA tenderness Cervical Spine: No Cervical spine tenderness Thoracic/Lumbar Spine: No lumbar spinal tenderness Skin Lesions: no lesions Rashes: no rashes Neuro General: patient oriented x3, moves all extremities, no focal motor deficits and CN's II-XI intact bilaterally Cranial nerves: Yes Equal, round and reactive pupils present Cognition (Neuro): normal cognition Gait exam (Neuro): Normal gait present Extrem General: Yes no clubbing, cyanosis or edema Coding Level of Care Code Est Pt Prev Care >65y(70881) Diagnoses Annual physical exam Z00.00 Trigeminal neuralgia of left side of face G50.0 Dyslipidemia E78.5 Allergic rhinitis, unspecified seasonality, unspecified trigger J30.9 Allergic rhinitis trigger: unspecified Allergic rhinitis seasonality: unspecified Primary osteoarthritis of right knee M17.11 Osteoarthritis type: primary Osteopenia, unspecified location M85.80 Osteopenia location: unspecified Depression, unspecified depression type F32.9 Depression Type: unspecified Additional Codes PHQ-9 - 32120 - PHQ-9 Billing: Yes ([id number]) Assessment & Plan Assessment & Plan (1) Annual physical exam: Code(s): Z00.00 - Encounter for general adult medical examination without abnormal findings Category: Medical Plan: Patient had her routine labs done back in November 2024 and these were already discussed with her at her last follow up appointment early last month She is currently up-to-date with all of her cancer screenings She just had her screening colonoscopy done recently on 01/28/2025 - (+) polyp that was a tubular adenoma on pathology and she is recommended for a repeat colonoscopy in 5 to 7 years She is due and scheduled for her annual mammogram in March 2025 and for her yearly gynecology exam and pap smear in June 2025 She had her BMD last done in March 2024 - (+) osteopenia in the left femoral neck; her FRAX score was 9.7% for a major osteoporotic fracture and 1.2% for hip fracture (2) Trigeminal neuralgia of left side of face: Comment: S/P left Jannetta procedure CN V with methylmethacrylate cranioplasty (Dr. Alisa Pro) on 07/22/2019 Code(s): G50.0 - Trigeminal neuralgia Category: Medical Plan: S/P Jannetta procedure back in 2019 Patient was offered a trial of glycerol rhizotomy injection by Dr. Pro a few years ago, which she declined She used to see Dr. Booker until he retired a few years ago, then started seeing Dr. Ott up until he retired last year and is now seeing Dr. Gastelum here at [facility] follow up States that she was doing well on Pregabalin 150 mg BID and Carbamazepine ER 400 mg BID - her Carbamazepine was changed to the IR formulation (Carbamazepine 200 mg BID) by Dr. Gastelum a few months ago and was changed back to her previous capsule formulation of Carbamazepine ER 400 mg BID at her recent neurology follow up a couple of days ago (3) Dyslipidemia: Code(s): E78.5 - Hyperlipidemia, unspecified Category: Medical Plan: Patient is reminded that her that her cholesterol levels have increased from her previous numbers in 2021 when they were recently checked a couple of months ago, with her total cholesterol now at 233 mg/dL and LDL cholesterol at 146 mg/dL Reinforced low cholesterol diet Will have patient recheck her labs and fasting lipids as scheduled in 2 to 3 months for follow-up (4) Allergic rhinitis: Code(s): J30.9 - Allergic rhinitis, unspecified Category: Medical Qualifiers: Allergic rhinitis trigger: unspecified Allergic rhinitis seasonality: unspecified Qualified Code(s): J30.9 - Allergic rhinitis, unspecified Plan: Continue OTC Loratadine 10 mg QD PRN and/or OTC Fluticasone 50 mcg nasal spray QD PRN (5) Osteoarthritis of right knee: Code(s): M17.11 - Unilateral primary osteoarthritis, right knee Category: Medical Qualifiers: Osteoarthritis type: primary Qualified Code(s): M17.11 - Unilateral primary osteoarthritis, right knee Plan: Right knee x-rays done last year revealed no acute fracture but (+) mild osteoarthritis changes in the right knee She was then referred to physical therapy, which she states helped with her knee symptoms (6) Osteopenia: Code(s): M85.80 - Other specified disorders of bone density and structure, unspecified site Category: Medical Qualifiers: Osteopenia location: unspecified Qualified Code(s): M85.80 - Other specified disorders of bone density and structure, unspecified site Plan: Repeat BMD done in March 2024 revealed (+) osteopenia based on the lowest T-s core value of -1.2 in the femoral neck - results are mostly unchanged from her previous BMD scan in September 2021 Patient is again encouraged to continue to stay active and exercise regularly and to continue taking her daily Calcium and Vitamin D supplements Will recheck her BMD again in 2 to 3 years for follow up (7) Depression: Code(s): F32.9 - Major depressive disorder, single episode, unspecified Category: Medical Qualifiers: Depression Type: unspecified Qualified Code(s): F32.9 - Major depressive disorder, single episode, unspecified Plan: Resolved/controlled - patient used to take Citalopram but self discontinued her medication last year States that she has been doing well since and does not have any problems/issues with depression currently Plan Follow up as scheduled in April 2025
--- OUTSIDE RECORDS SUMMARY | 2025-02-07 09:14 | XMS_ITS | Clinical Summary ---
Author Organization [facility] Address [id number] [place] [id number] Care Team Providers Care [address] Service Name Role Phone Hermann Phillips MD Primary [...] age to complete this topic Care Teams [address] Service Relationship Specialty Start Date End Date Hermann Phillips MD [address] [place] [address] [address] [place], [place] PCP - General Internal Medicine 04/03/19
== END 2025-02-07 09:42 | disposition home or self-care (01) ==
LOC: HO.HMCH 08:59
PROVIDERS: PCP Internal Medicine; Visit Provider Internal Medicine
DX: Z00.00 Encounter for general adult medical examination without abnormal findings (principal); G50.0 Trigeminal neuralgia; E78.5 Hyperlipidemia, unspecified; J30.9 Allergic rhinitis, unspecified; M17.11 Unilateral primary osteoarthritis, right knee; M85.80 Other specified disorders of bone density and structure, unspecified site; F32.9 Major depressive disorder, single episode, unspecified

== ENCOUNTER → 2025-02-07 08:58 | Outpatient (BNVA) | payer MEDICARE, SELFPAY | PROVIDERS: PCP Internal Medicine; Visit Provider Internal Medicine | DX: Z00.00 Encounter for general adult medical examination without abnormal findings (principal); G50.0 Trigeminal neuralgia; E78.5 Hyperlipidemia, unspecified; J30.9 Allergic rhinitis, unspecified; M17.11 Unilateral primary osteoarthritis, right knee; M85.80 Other specified disorders of bone density and structure, unspecified site; F32.9 Major depressive disorder, single episode, unspecified | CPT/HCPCS: 96127; 99397 ==